=== PATIENT | female | born 2000 | race Caucasian/White ===

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

== ENCOUNTER 2021-04-11 22:54 | Emergency (ER) | payer OTHER, SELFPAY ==
[2021-04-11 22:55] VITALS: BP 141/95; PULSE 91; RESP 18; TEMP 36.7; O2SAT 99; BMI 29.2
--- NOTE | 2021-04-11 23:07 | XR_ITS ---
PROCEDURE INFORMATION: Exam: XR Right Ankle Exam date and time: 04/11/2021 11:07 PM Age: 20 years old Clinical indication: Pain and injury or trauma; Fall; Sprain or strain and swelling (edema); Ankle; Right TECHNIQUE: Imaging protocol: XR Right ankle. Views: 3 or more views. COMPARISON: No relevant prior studies available. FINDINGS: Bones/joints: Normal. Soft tissues: There is potentially mild swelling overlying the ankle. IMPRESSION: No acute osseous abnormality. If there is concern for ligamentous or other soft tissue injury, MRI would be more sensitive.
--- NOTE | 2021-04-11 23:29 | HMH.EDLOEX ---
ED Disposition Clinical Impression: Ankle sprain Qualifiers: Encounter type: initial encounter Involved ligament of ankle: unspecified ligament Laterality: right Qualified Code(s): S93.401A - Sprain of unspecified ligament of right ankle, initial encounter Disposition: Home, Self-Care Condition on Discharge: Good Instructions: DI for Ankle Sprain Additional Instructions: ice and limited wt bearing and advil/tyenol and see ortho or podiatry for follow up Referrals: Mj Meléndez MD [Primary Care Provider] - Padmaja Malloy DPM [Staff Physician] - Inocente Castillo JR, MD [Physician] - - Critical Care Critical Care Time: No Attestation: On 04/11/21, the high probability of a clinically significant, sudden or life threatening deterioration of the following system(s) required my full and direct attention, intervention and personal management. The time I documented below is in addition to time spent performing reported procedures but includes the following listed in this critical care notation. Medical Decision Making - Medical Records Medical records reviewed: Yes: I reviewed the patient's medical records. - Corey Inquiry Pt receiving controlled substance: No Vital Signs: 04/11/21 22:55 04/12/21 00:12 Temperature 98.1 F 98.2 F Temperature Source Oral Oral Pulse Rate 88 Pulse Rate [Right] 91 H Respiratory Rate 18 19 Blood Pressure 138/88 Blood Pressure [Right Arm] 141/95 H Blood Pressure Mean [Right Arm] 110 02 Sat by Pulse Oximetry 99 Oxygen Delivery Method Room Air - Lab Data Lab results reviewed: Yes: I reviewed the patient's lab results. - Radiology Data #1 Image(s): Ankle Image Reviewed: Yes I have reviewed radiologist's interpretation Preliminary Findings: No Fracture Seen Medical Decision Narrative: limited wt bearing and ice and see ortho or podiatry for follow up Lower Extremity Injury HPI - General Chief Complaint: Extremity Injury, Lower Stated Complaint: AO 2000 injured R ankle Time Seen by Provider: 04/11/21 23:29 Mode of Arrival: Wheelchair Source of Information: Patient, Parent(s), Medical Record Limitations: No Limitations Description of Symptoms (Recalled from ER Triage Doc. by RN): pt states she fell off one step of bleachers. pt c/o rt ankle pain - History of Present Illness HPI Narrative: acute injury rt ankle with tenderness and dec wt bearing - misstepped complaint: ankle injury Onset (ago): hour(s) Injury: Right: ankle Type of Injury: eversion Place: school Severity: moderate Context: walking Associated symptoms: snap/pop sensation, swelling, able to partially bear weight Other symptoms: none - Related Data Home Medications Medication Instructions Recorded Confirmed No Known Home Medications 02/19/21 02/19/21 Allergies Allergy/AdvReac Type Severity Reaction Status Date / Time Penicillins Allergy Severe Anaphylaxis Verified 02/19/21 10:51 povidone-iodine AdvReac Mild Itching Verified 02/19/21 10:51 [From Betadine] soap [From Betadine] AdvReac Mild Itching Verified 02/19/21 10:51 [facility] History - Hepatitis A Screen Drug use history?: No High risk sexual behaviors?: No History of sexually transmitted infection?: No Currently employed?: No Childcare worker?: No Do you have indoor plumbing?: Yes Do you have electricity?: Yes Attestation statement:: This patient has been screened for Hepatitis A risk factors. I have reviewed the patient's past medical history: Yes Medical History: Reports:: Anxiety, Depression Denies:: Cancer, Diabetes Mellitus Type 1, Diabetes Mellitus Type 2, Internal Pacemaker, MRSA, Seizures Other Medical History: Denies: Blood Transfusion Reaction Laterality Cases: Left: Other, Bilateral: Tonsillectomy Other Surgeries: Yes: Other (Left Ankle). No: Pacemaker Amputation: No Fractures: No Comment: L ankle July 2018. [place] Teeth Extraction - Social History Smoking Status: Never smoker Alcoh
[2021-04-12 00:12] VITALS: BP 138/88; PULSE 88; RESP 19; TEMP 36.8; O2SAT 98
== END 2021-04-12 00:42 | disposition home or self-care (01) ==
PROVIDERS: Emergency Provider Emergency Medicine; PCP Internal Medicine Adolescent Medicine
DX: S93.401A Sprain of unspecified ligament of right ankle, initial encounter (principal); W17.89XA Other fall from one level to another, initial encounter; Y92.89 Other specified places as the place of occurrence of the external cause
CPT/HCPCS: 73610; 99283

== ENCOUNTER → 2021-04-19 10:34 | Outpatient (CLI) | payer OTHER, SELFPAY ==
--- NOTE | 2021-04-19 10:34 | MR_ITS ---
PROCEDURE INFORMATION: Exam: MR Right Lower Extremity Joint Without and With Contrast; Ankle Exam date and time: 04/19/2021 10:34 AM Age: 20 years old Clinical indication: Pain; Ankle; Right; Additional info: Right ankle injury, instability TECHNIQUE: Imaging protocol: MR of the Right lower extremity without and with contrast. Exam focused on the ankle. Contrast material: ISOVUE; Contrast volume: 15 ml; Contrast route: IV; COMPARISON: CR XR ANKLE RT MIN 3V 04/11/2021 11:31 PM FINDINGS: Bones and cartilage: STIR hyperintense marrow edema or contusion identified involving the medial malleolus. There is a curvilinear focus of T2 hyperintensity within the bone marrow of this region, and a nondisplaced or trabecular type fracture is suggested. 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 Marrow edema is identified involving this ossicle and the adjacent navicular bone. 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 There is enhancement of the above-mentioned bone marrow. No dislocation of the ankle. Joint spaces: No joint effusion. LIGAMENTS: Distal tibiofibular syndesmosis: There is increased signal intensity within the anterior tibiofibular ligament, and partial tear cannot be excluded. Anterior talofibular ligament: There is abnormal signal intensity within the anterior talofibular ligament with adjacent edema. This is consistent with partial tear. Posterior talofibular ligament: No definitive tear. Calcaneofibular ligament: Mild edema adjacent to the calcaneofibular ligament, without full-thickness tear. Ligament sprain is considered. Deltoid ligament complex: Heterogeneous signal intensity of the deltoid ligament, without definitive tear. TENDONS: Flexor tendons of foot: Unremarkable as visualized. Tibialis posterior tendon: Mild tenosynovitis of the posterior tibialis tendon. Peroneal tendons: Abnormal morphology of the peroneus brevis tendon. No well-defined tear. No visualized tear of the peroneus longus tendon. Extensor tendons of foot: Unremarkable as visualized. Tibialis anterior tendon: Unremarkable as visualized. Achilles tendon: Unremarkable as visualized. Tarsal canal (Sinus tarsi): There is a small amount of subtalar fluid which extends into the sinus tarsi. Muscles: No visualized acute abnormality. Soft tissues: Minimal soft tissue swelling of the ankle. Plantar fascia: Intact, as visualized. IMPRESSION: 1. Marrow edema or contusion identified involving the medial malleolus. There is a curvilinear focus of T2 hyperintensity within the bone marrow of this region, and a nondisplaced or trabecular type fracture is suggested. 2. 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 Marrow edema is identified involving this ossicle and the adjacent navicular bone. 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 3. Partial tear of the anterior talofibular ligament. 4. There is increased signal intensity within the anterior tibiofibular ligament, and partial tear cannot be excluded. 5. Suggested sprain of the calcaneofibular ligament. 6. Mild tenosynovitis of the posterior tibialis tendon. 7. Additional findings described above.
== END ==
PROVIDERS: PCP Internal Medicine Adolescent Medicine; Visit Provider Nurse Practitioner
DX: M25.371 Other instability, right ankle (principal); M25.571 Pain in right ankle and joints of right foot; S93.421A Sprain of deltoid ligament of right ankle, initial encounter
CPT/HCPCS: 73723; A9576

== ENCOUNTER → 2021-06-03 12:56 | Outpatient (CLI) | payer OTHER, SELFPAY ==
--- NOTE | 2021-06-03 13:09 | XR_ITS ---
PROCEDURE: XR ANKLE WT BEARING RT MIN 3V CLINICAL INDICATION: FRACTURE OF MEDIAL MALLEOLUS, Ankle sprain COMPARISON: CR XR ANKLE RT MIN 3V from 04/11/2021 MR MR ANKLE RT WO/W CON from 04/19/2021 FINDINGS: The previous MRI scan right ankle showed marrow edema suggesting a nondisplaced fracture of the medial malleolus. I do not identify a semi acute fracture of the medial malleolus. There is no periosteal reaction. The medial and lateral malleolus appear intact and the ankle mortise is normal. There is no significant soft tissue swelling. IMPRESSION: No acute findings. Dictated by: Dr. Buck Winter MD 06/06/2021 13:36 Dr. Buck Winter MD in [place] 06/06/2021 13:36
== END ==
PROVIDERS: PCP Internal Medicine Adolescent Medicine; Visit Provider Podiatrist
DX: S82.51XA Displaced fracture of medial malleolus of right tibia, initial encounter for closed fracture (principal); S93.401A Sprain of unspecified ligament of right ankle, initial encounter
CPT/HCPCS: 73610

== ENCOUNTER 2021-07-02 18:45 | Emergency (ER) | payer OTHER, SELFPAY ==
[2021-07-02 19:40] VITALS: BP 0/0; PULSE 0; RESP 0; TEMP -17.7; TEMP 0
== END 2021-07-02 19:42 | disposition home or self-care (01) ==
LOC: UTC 18:48 → ER 19:29 → UTC 19:34
PROVIDERS: Emergency Provider Nurse Practitioner Family; PCP Internal Medicine Adolescent Medicine
DX: Z53.21 Procedure and treatment not carried out due to patient leaving prior to being seen by health care provider (principal)

== ENCOUNTER → 2021-07-15 09:30 | Outpatient (CLI) | payer OTHER, SELFPAY ==
--- NOTE | 2021-07-15 09:41 | XR_ITS ---
PROCEDURE: XR TIBIA FIBULA RT 2V CLINICAL INDICATION: ANKLE PAIN COMPARISON: No exams were available for comparison FINDINGS: There is a wrap present around the calf and ankle. No definite fracture or dislocation. The joint spaces are well-preserved. No significant degenerative/arthritic changes. No erosive changes evident. Other findings:None. IMPRESSION: No acute findings. Dictated by: Clint Barajas MD 07/15/2021 14:41 Clint Barajas MD in [facility] 07/15/2021 14:41
--- NOTE | 2021-07-15 09:41 | XR_ITS ---
PROCEDURE: XR FOOT WT BEARING RT 3V CLINICAL INDICATION: ANKLE PAIN COMPARISON: No exams were available for comparison FINDINGS: No fracture or dislocation. No lytic or blastic change. There is normal mineralization. The joint spaces are well-preserved. No significant degenerative/arthritic changes. No erosive changes evident. Other findings:There is a wrap in place along the ankle, hindfoot and midfoot somewhat obscuring fine bony detail. IMPRESSION: No acute findings. Dictated by: Clint Barajas MD 07/15/2021 14:41 Clint Barajas MD in [place] 07/15/2021 14:41
--- NOTE | 2021-07-15 09:41 | XR_ITS ---
PROCEDURE: XR ANKLE WT BEARING RT MIN 3V CLINICAL INDICATION: ANKLE PAIN COMPARISON: CR XR ANKLE LT MIN 3V from 07/31/2020 CR XR ANKLE LT 2V from 08/04/2020 CR XR ANKLE RT MIN 3V from 04/11/2021 CR XR ANKLE WT BEARING RT MIN 3V from 06/03/2021 FINDINGS: There is an overlying wrap which somewhat obscures fine bony detail. No acute fracture or dislocation is apparent. The ankle mortise is preserved and the talar dome has an unremarkable appearance. IMPRESSION: No acute findings. Dictated by: Clint Barajas MD 07/15/2021 14:40 Clint Barajas MD in [place] 07/15/2021 14:40
== END ==
PROVIDERS: PCP Internal Medicine Adolescent Medicine; Visit Provider Podiatrist
DX: M25.571 Pain in right ankle and joints of right foot (principal); M25.371 Other instability, right ankle; G89.29 Other chronic pain
CPT/HCPCS: 73590; 73610; 73630

== ENCOUNTER → 2021-07-24 13:28 | Outpatient (CLI) | payer OTHER, SELFPAY ==
--- NOTE | 2021-07-24 13:32 | MR_ITS ---
PROCEDURE INFORMATION: Exam: MR Right Lower Extremity Joint Without Contrast; Ankle Exam date and time: 07/24/2021 1:32 PM Age: 20 years old Clinical indication: Pain; Ankle; Right; Prior surgery; Surgery date: 6+ months; Additional info: Right ankle pain, prior ankle surgery x1yr ago. Ankle pain. Symptoms x6-7months. PT fell [id number] ago with foot FX. TECHNIQUE: Imaging protocol: MR of the Right lower extremity without contrast. Exam focused on the ankle. COMPARISON: MR ANKLE RT WO/W CON 04/19/2021 10:47 AM FINDINGS: Bones and cartilage: A type 2 accessory navicular bone is visualized. Marrow edema is identified involving this ossicle and the adjacent navicular bone. This is consistent with accessory navicular syndrome. The marrow edema has progressed compared to the previous exam. There is interval resolution of marrow edema involving the medial malleolus. Artifact limits T2 and PD fat saturated images. Joint spaces: Small tibiotalar joint effusion. Minimal subtalar joint effusion. LIGAMENTS: Distal tibiofibular syndesmosis: Unremarkable. No tear. Anterior talofibular ligament: Heterogeneous increased signal intensity involving the anterior talofibular ligament. Partial tear is considered. Signal change in this region has improved compared to the prior study. Posterior talofibular ligament: Unremarkable. No tear. Calcaneofibular ligament: Evaluation of the calcaneofibular ligament is limited, without a full-thickness tear. Deltoid ligament complex: No tear. TENDONS: Flexor tendons of foot: Unremarkable as visualized. Tibialis posterior tendon: Minimal tenosynovitis of the posterior tibialis tendon, which has improved. Peroneal tendons: Abnormal morphology of the peroneus brevis tendon. No well-defined tear. No visualized tear of the peroneus longus tendon. Extensor tendons of foot: Unremarkable as visualized. Tibialis anterior tendon: Unremarkable as visualized. Achilles tendon: Unremarkable as visualized. Tarsal canal (Sinus tarsi): Minimal fluid within the sinus tarsi. Muscles: No visualized acute abnormality. Soft tissues: Unremarkable. Plantar fascia: Intact, as visualized. IMPRESSION: 1. 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 Marrow edema is identified involving this ossicle and the adjacent navicular bone. This is consistent with accessory navicular syndrome. The marrow edema has progressed compared to the previous exam. 2. Heterogeneous increased signal intensity involving the anterior talofibular ligament. Partial tear is considered. Signal change in this region has improved compared to the prior study. 3. Minimal tenosynovitis of the posterior tibialis tendon, which has improved. 4. Small tibiotalar joint effusion. Minimal subtalar joint effusion. 5. Additional findings described above.
--- NOTE | 2021-07-24 13:32 | MR_ITS ---
PROCEDURE INFORMATION: Exam: MR Right Lower Extremity Other Than Joint Without and With Contrast; Foot Exam date and time: 07/24/2021 1:32 PM Age: 20 years old Clinical indication: Pain; Foot; Right; Prior surgery; Surgery date: 6+ months; Additional info: Right foot pain. Prior ankle surgery x1yr ago. Ankle pain. Symptoms x6-7months. PT fell [id number] ago with foot FX. 16ml prohance given. Lot: [id number] exp: Feb 2023 TECHNIQUE: Imaging protocol: MR of the Right lower extremity without and with intravenous contrast. Exam focused on the foot. Contrast material: PROHANCE; Contrast volume: 16 ml; Contrast route: IV; COMPARISON: 1. CR XR FOOT WT BEARING RT 3V 07/15/2021 9:43 AM 2. MR ANKLE RT WO/W CON 04/19/2021 10:47:20 AM FINDINGS: Bones and cartilage: A tiny nonspecific sclerotic lesions identified within the 2nd metatarsal head. 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 Marrow edema is identified involving this ossicle and the adjacent navicular bone. This is consistent with accessory navicular syndrome. The marrow edema has progressed compared to the previous MRI ankle. No acute marrow edema involving the remaining bones of the foot. There is enhancement of the marrow edema involving the navicular bone and adjacent ossicle. Evaluation of the digits on postcontrast images is limited. No dislocation of the foot. Joint spaces: Small tibiotalar and subtalar joint effusions. Minimal fluid within the talonavicular joint. Small 1st MTP and IP joint effusions. LIGAMENTS: Lisfranc ligament: No evidence of tear. TENDONS: Flexor tendons of foot: Unremarkable. No evidence of tear. Tibialis posterior tendon: Minimal tenosynovitis of the posterior tibialis tendon. Peroneal tendons: Abnormal morphology of the peroneus brevis tendon. No well-defined tear. No visualized tear of the peroneus longus tendon. Extensor tendons of foot: Unremarkable. No evidence of tear. Tibialis anterior tendon: Unremarkable as visualized. Achilles tendon: Mild heterogeneous signal intensity of the distal Achilles tendon on sagittal imaging suggestive of tendinosis, although this is not confirmed on axial images. Tarsal canal (Sinus tarsi): There is mild extension of subtalar fluid into the sinus tarsi. Soft tissues: Minimal fluid within the retrocalcaneal bursa. Plantar fascia: Intact, as visualized. IMPRESSION: 1. 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 Marrow edema is identified involving this ossicle and the adjacent navicular bone. This is consistent with accessory navicular syndrome. The marrow edema has progressed compared to the previous MRI ankle. 2. Small effusions. 3. Additional findings described above.
== END ==
PROVIDERS: PCP Internal Medicine Adolescent Medicine; Visit Provider Podiatrist
DX: M25.571 Pain in right ankle and joints of right foot (principal); M25.371 Other instability, right ankle; S93.621A Sprain of tarsometatarsal ligament of right foot, initial encounter; S99.911A Unspecified injury of right ankle, initial encounter; Z87.81 Personal history of (healed) traumatic fracture
CPT/HCPCS: 73720; 73721; A9576

== ENCOUNTER → 2021-07-25 14:53 | Outpatient (CLI) | payer OTHER, SELFPAY ==
--- NOTE | 2021-07-25 14:53 | MR_ITS ---
PROCEDURE INFORMATION: Exam: MR Left Lower Extremity Without Contrast, Tibia Fibula Exam date and time: 07/25/2021 2:53 PM Age: 20 years old Clinical indication: Pain; Lower leg; Left; Prior surgery; Additional info: Lower leg/calf, achilles pain. PT states knot on posterior aspect of leg. Put marker in center of knot. Pain around spot x1yr. Prior x-ray 07-15-21 TECHNIQUE: Imaging protocol: MR of the Left lower extremity without contrast. Exam focused on the tibia and fibula. COMPARISON: No relevant prior studies available. FINDINGS: Bones/joints: No visualized acute marrow edema or acute fracture of the left tibia or fibula. No dislocation of the tibia. Small tibiotalar joint effusion, with slight widening of the lateral ankle mortise. Evaluation of the knee and ankle is limited on this study. Bands of T1 hypointensity are identified within the lateral malleolus, likely representing postoperative change. In the absence of postoperative change, this likely represents cystic change. Tendons: There is thickening of the Achilles tendon at the musculotendinous junction, which is hypointense on T1 and T2 images. This is suggestive of tendinopathy, postoperative change, or prior injury. No tear is visualized of the Achilles tendon on current images. An adjacent marker capsule is identified. Tenosynovitis of the peroneal tendons, with thickening of the peroneus longus tendon.. Muscles: No visualized acute abnormality. Soft tissues: No significant soft tissue swelling. IMPRESSION: 1. There is thickening of the Achilles tendon at the musculotendinous junction. This is suggestive of tendinopathy, postoperative change, or prior injury. No tear is visualized of the Achilles tendon on current images. An adjacent marker capsule is identified. 2. Tenosynovitis of the peroneal tendons, with thickening of the peroneus longus tendon.. 3. No visualized acute marrow edema or acute fracture of the left tibia or fibula. 4. Small tibiotalar joint effusion, with slight widening of the lateral ankle mortise. 5. Additional findings described above.
== END ==
PROVIDERS: PCP Internal Medicine Adolescent Medicine; Visit Provider Podiatrist
DX: M79.662 Pain in left lower leg (principal); L90.5 Scar conditions and fibrosis of skin
CPT/HCPCS: 73718

== ENCOUNTER 2021-08-04 18:01 | Emergency (ER) | payer OTHER, SELFPAY ==
[2021-08-04 18:55] VITALS: BP 133/90; PULSE 93; RESP 19; TEMP 37; O2SAT 98; BMI 30.3
[2021-08-04 19:26] LABS: UTC Strep Screen (Rapid) Negative (Negative)
--- NOTE | 2021-08-04 20:00 | HMH.EDUTC ---
[facility] Disposition Clinical Impression: Sinusitis Qualifiers: Sinusitis location: unspecified location Chronicity: unspecified Qualified Code(s): J32.9 - Chronic sinusitis, unspecified Disposition: Home, Self-Care Condition on Discharge: Good Instructions: Sinusitis, DI for Sinusitis, DI for Ear Pain-Adult, DI for COVID-19 (Suspected or Confirmed ) Additional Instructions: *Monitor Temp, Over the counter Motrin or Tylenol as directed/as needed Tylenol every 4 hours and Motrin every 6 hours (as long as your family doctor has told you that you can take it) for fever or pain. and straight to ER if unable to lower temp less than 101.0 after medication given *Warm salt water gargles may help to soothe the throat *Throat Lozenges *Warm fluids like tea with honey may help to soothe the throat *Sleep elevated *Humidifier/Vaporizer *Flonase 2 sprays in each nostril daily but be aware that it may take 2-3 days before you notice improvement Your throat swab was sent for culture. Those results are typically sent to your primary care. Be sure to follow up in 2-3 days with your family doctor/primary care physician if no improvement so they can review those result and treat if necessary. If you don?t have a primary care doctor, I recommend you get one but in the mean time, you will have to return to a walk in clinic Follow up IMMEDIATELY for new or worsening symptoms or no Noticeable improvement over the next 48-72 hours. 911 for difficulty breathing or swallowing You were tested for today for COVID19 your test result should be back in the next 24-48 hours, you may check for your results on the [facility] My Health Portal if you have trouble logging on or seeing your results you may call You was given a handout with instructions for Self Quarantine and Self isolation for while you wait on test results and what to do if they are positive If you are positive the Health Dept will be contacting you also Make sure to take your Vitamins Vit. C Vit D and Zinc if you can take them Prescriptions: Fluticasone Propionate [Flonase 50mcg nasal spray 16gm] 1 spr NS DAILY #1 each Transmission Status: Pending to [facility] predniSONE [Prednisone 20mg Tab] 20 mg PO BID 5 Days #10 tab Transmission Status: Pending to [facility] Azithromycin [Z-Junior 250mg Tab] 250 mg PO DIRECTED #6 tab Transmission Status: Pending to [facility] Referrals: Mj Meléndez MD [Primary Care Provider] - As needed Forms: Work/School Release Time of Disposition: 20:10 Medical Decision Making - Corey Inquiry Pt receiving controlled substance: No Corey was queried for this patient: No Vital Signs: 08/04/21 18:55 Temperature 98.6 F Temperature Source Oral Pulse Rate [Right Brachial] 93 H Respiratory Rate 19 Blood Pressure [Right Arm] 133/90 Blood Pressure Mean [Right Arm] 104 Blood Pressure Source [Right Arm] Automatic Cuff Blood Pressure Position [Right Arm] Sitting 02 Sat by Pulse Oximetry 98 Oxygen Delivery Method Room Air - Lab Data Lab results reviewed: Yes: I reviewed the patient's lab results. Lab Results 08/04/21 19:15: Strep Scn Rapid Clinic Negative Orders (Tests/Meds): ORDERS Category Date Time Status Strep Screen Confirmation Stat Micro 08/04/21 19:15 Received Medical Decision Narrative: Reports LMP last week denies chance of [facility] HPI - General Stated complaint: sore throat Time Seen by Provider: 08/04/21 20:00 Mode of Arrival: Ambulatory Source of Information: Patient Limitations: No Limitations Description of Symptoms (Recalled from Triage Doc. by RN): PATIENT C/O SORE THROAT X 3 DAYS HEENT Symptoms (Recalled from RN notes): Yes Resp Symptoms (Recalled from RN notes): No Skin Symptoms (Recalled from RN notes): No MS Symptoms (Recalled from RN notes): No Functional Status (Recalled from RN notes): WNL - History of Present Illness Provider Complaint: Patient states that she has been
[2021-08-04 20:11] VITALS: BP 133/90; PULSE 93; RESP 19; TEMP 37; O2SAT 98
== END 2021-08-04 20:15 | disposition home or self-care (01) ==
PROVIDERS: Emergency Provider Nurse Practitioner; PCP Internal Medicine Adolescent Medicine
DX: J32.9 Chronic sinusitis, unspecified (principal); F41.8 Other specified anxiety disorders; Z20.822 Contact with and (suspected) exposure to COVID-19
CPT/HCPCS: 87880; 99203; C9803; G0463; U0003; U0005

== ENCOUNTER → 2021-08-21 11:08 | Outpatient (CLI) | payer OTHER, SELFPAY ==
--- NOTE | 2021-08-21 11:15 | CT_ITS ---
FINAL REPORT CLINICAL HISTORY: RLQ ABDOMINAL PAIN COMPARISON: 12/15/2020 FINDINGS: CT OF THE ABDOMEN AND PELVIS WITH CONTRAST Axial CT images of the abdomen and pelvis were obtained after the administration of oral and iv contrast. Coronal reformatted images were also obtained and reviewed.This study was performed with techniques to keep radiation doses as low as reasonably achievable (ALARA). Individualized dose reduction techniques using automated exposure control or adjustment of mA and/or kV according to the patient's size were employed. Abdomen: There is mild bibasilar atelectasis. The heart is normal in size. The liver has an unremarkable appearance, without evidence of mass or biliary ductal dilatation. The spleen is unremarkable. No adrenal mass is present. The pancreas has an unremarkable appearance. The kidneys are normal, without evidence of stone or hydronephrosis. There is a less than 1 cm right renal cyst. The aorta is normal in caliber. There is no free fluid or adenopathy. No mass or abnormal fluid collection is seen. Pelvis: The appendix is partially visualized and appears normal. The urinary bladder is unremarkable. No inflammatory process is seen. There is a small amount of pelvic free fluid which is probably physiologic. There are small right ovarian cysts. IMPRESSION: No evidence of acute intra-abdominal process. Small right ovarian cysts. Reviewed, Interpreted and Dictated by Babar Samaniego III, MD Transcribed by Jade Rosario Authenticated by Babar Samaniego III, MD on 08/21/2021 12:28:25 PM [facility]
== END ==
LOC: RAD 11:09
PROVIDERS: PCP Internal Medicine Adolescent Medicine; Visit Provider Internal Medicine Adolescent Medicine
DX: R10.31 Right lower quadrant pain (principal)
CPT/HCPCS: 74177; Q9967

== ENCOUNTER 2021-11-26 18:38 | Emergency (ER) | payer OTHER, SELFPAY ==
--- NOTE | 2021-11-26 19:31 | XR_ITS ---
PROCEDURE INFORMATION: Exam: XR Left Hand Exam date and time: 11/26/2021 7:36 PM Age: 21 years old Clinical indication: Pain; Hand; Left; Additional info: Injury to thumb TECHNIQUE: Imaging protocol: XR Left hand. Views: 3 or more views. COMPARISON: No relevant prior studies available. FINDINGS: Bones/joints: No acute fracture or dislocation. Soft tissues: Normal. IMPRESSION: No acute fracture or dislocation.
[2021-11-26 19:32] VITALS: BP 135/89; PULSE 76; RESP 19; TEMP 36.8; O2SAT 98; BMI 30.1
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
[2021-11-26 20:15] VITALS: BP 135/89; PULSE 76; RESP 19; TEMP 36.8; O2SAT 98
== END 2021-11-26 20:16 | disposition home or self-care (01) ==
PROVIDERS: Emergency Provider Nurse Practitioner; PCP Internal Medicine Adolescent Medicine
DX: S63.602A Unspecified sprain of left thumb, initial encounter (principal); W50.0XXA Accidental hit or strike by another person, initial encounter; Y92.019 Unspecified place in single-family (private) house as the place of occurrence of the external cause; F41.8 Other specified anxiety disorders; Z88.0 Allergy status to penicillin
CPT/HCPCS: 73130; 99212; G0463

== ENCOUNTER 2022-10-06 15:03 | Emergency (ER) | payer OTHER, SELFPAY ==
[2022-10-06 15:15] VITALS: BP 142/98; PULSE 88; RESP 21; TEMP 36.9; O2SAT 99; BMI 29.5
--- NOTE | 2022-10-06 15:30 | EXP.UTC ---
Discharge Plan Disposition Patient Disposition: Home, Self-Care Condition: Good Prescriptions Prescriptions: New fluticasone propionate [Flonase Allergy Relief] 50 mcg/actuation spray,suspension 1 spray intranasal DAILY Qty: 16 0RF Rx Instructions: administer into each nostril daily azithromycin [Zithromax Z-Junior] 250 mg tablet See Rx Instructions .ROUTE .COMPLEX 5 Days Qty: 6 0RF Rx Instructions: For 250 mg dose pack: take 500 mg today (day 1), then 250 mg for 4 days (days 2-5) methylprednisolone [Medrol (Junior)] 4 mg tablets,dose pack See Rx Instructions .Route .COMPLEX 6 Days Qty: 21 0RF Rx Instructions: taper pack; Referrals Follow up/Referrals: Julio Schmitz MD [Primary Care Provider] - See instructions Activity Restrictions/Add. Instructions Additional Instructions/Restrictions: *Monitor Temp, Over the counter Motrin or Tylenol as directed/as needed Tylenol every 4 hours and Motrin every 6 hours (as long as your family doctor has told you that you can take it) for fever or pain. and straight to ER if unable to lower temp less than 101.0 after medication given *Warm salt water gargles may help to soothe the throat *Throat Lozenges? *Warm fluids like tea with honey may help to soothe the throat? *Sleep elevated *Humidifier/Vaporizer *Flonase 2 sprays in each nostril daily but be aware that it may take 2-3 days before you notice improvement Your throat swab was sent for culture. Those results are typically sent to your primary care. Be sure to follow up in 2-3 days with your family doctor/primary care physician if no improvement so they can review those result and treat if necessary. If you don?t have a primary care doctor, I recommend you get one but in the mean time, you will have to return to a walk in clinic Follow up IMMEDIATELY for new or worsening symptoms or no Noticeable improvement over the next 48-72 hours. 911 for difficulty breathing or swallowing Clinical Impressions Clinical Impression: Sinusitis, Pharyngitis Stand Alone Forms Stand Alone Forms: Work/School Release Instructions Patient Instructions: Sore Throat, Sinusitis, DI for Sinusitis Discharge ED Provider: Melissa Barros [facility] HPI General Stated complaint: sore throat, ALFARO, congestion Time Seen by Provider: 10/06/22 15:30 History of Present Illness Provider Complaint: Patient states that she has been having sore throat, sinus congestion and pressure along with drainage in the back of her throat States that she feels like when she coughs her throat hurts worse States that today her throat was hurting worse so she came in to get checked Related Data Previous Rx's Medication Instructions Recorded azithromycin 250 mg tablet See Rx Instructions PO .COMPLEX 5 10/06/22 (Zithromax Z-Junior) days #6 tabs fluticasone propionate 50 1 spray intranasal DAILY #16 grams 10/06/22 mcg/actuation nasal spray,suspension (Flonase Allergy Relief) methylprednisolone 4 mg tablets in See Rx Instructions .Route 10/06/22 a dose pack (Medrol (Junior)) .COMPLEX 6 days #21 tabs Allergies Allergy/AdvReac Type Severity Reaction Status Date / Time Penicillins Allergy Severe Anaphylaxis Verified 08/04/21 13:06 povidone-iodine AdvReac Mild Itching Verified 08/04/21 13:06 [From Betadine] soap [From Betadine] AdvReac Mild Itching Verified 08/04/21 13:06 [facility] Disclaimer: The information contained in this section may have been updated after the patient was seen, as this information can be updated by other users. Social History Smoking Status: Never smoker second hand exposure: No alcohol intake: never substance use type: denies use current occupational status: employed Travel in the last 8 weeks: None current occupational exposures/hazards: No caffeine: Yes ROS Obtained: Yes All systems reviewed & no additional complaints except as documented and Yes Systems rev
[2022-10-06 15:35] LABS: UTC Strep Screen (Rapid) Negative (Negative)
[2022-10-06 15:57] VITALS: BP 142/98; PULSE 88; RESP 21; TEMP 36.9; O2SAT 99
== END 2022-10-06 16:05 | disposition home or self-care (01) ==
PROVIDERS: Emergency Provider Nurse Practitioner; PCP Internal Medicine Adolescent Medicine
DX: J32.9 Chronic sinusitis, unspecified (principal); J02.9 Acute pharyngitis, unspecified
CPT/HCPCS: 87880; 99212; 99213; G0463

== ENCOUNTER 2022-10-17 10:29 | Emergency (ER) | payer OTHER, SELFPAY ==
[2022-10-17 10:35] VITALS: BP 150/100; PULSE 92; RESP 17; TEMP 37.2; O2SAT 100; BMI 29.5
[2022-10-17 10:50] VITALS: BP 138/92; PULSE 92; RESP 17; TEMP 37.2; O2SAT 100
[2022-10-17 10:53] LABS: UTC Strep Screen (Rapid) Negative (Negative)
--- NOTE | 2022-10-17 11:36 | EXP.UTC ---
Discharge Plan Disposition Patient Disposition: Home, Self-Care Condition: Good Prescriptions Prescriptions: New doxycycline hyclate 100 mg capsule 100 mg PO Q12H 10 Days Qty: 20 0RF Referrals Follow up/Referrals: Julio Schmitz MD [Primary Care Provider] - See instructions Activity Restrictions/Add. Instructions Additional Instructions/Restrictions: Follow up with PCP concerning elevated blood pressure readings. Clinical Impressions Clinical Impression: Acute suppur right otitis media w/spontan rupture of tympanic membrane, Elevated blood pressure reading without diagnosis of hypertension Instructions Patient Instructions: DI for Middle Ear Infection-Adult Discharge ED Provider: Madeline Ma [facility] General Stated complaint: Sore throat,right ear ache Mode of Arrival: Ambulatory Source of Information: Patient Limitations: No Limitations Time Seen by Provider: 10/17/22 11:35 Description of Symptoms (Recalled from Triage Doc. by RN): PATIENT C/O SORE THROAT AND RIGHT EAR PAIN X 2 DAYS HEENT Symptoms (Recalled from RN notes): Yes Resp Symptoms (Recalled from RN notes): No Skin Symptoms (Recalled from RN notes): No MS Symptoms (Recalled from RN notes): No Functional Status (Recalled from RN notes): WNL History of Present Illness Provider Complaint: Pt states that both ears hurt and the pain runs down to her throat. She states that she took antibiotics a couple of weeks ago for strep. She states that she has been using Flonase daily. Related Data Previous Rx's Medication Instructions Recorded doxycycline hyclate 100 mg capsule 100 mg PO Q12H 10 days #20 caps 10/17/22 Allergies Allergy/AdvReac Type Severity Reaction Status Date / Time Penicillins Allergy Severe Anaphylaxis Verified 08/04/21 13:06 povidone-iodine AdvReac Mild Itching Verified 08/04/21 13:06 [From Betadine] soap [From Betadine] AdvReac Mild Itching Verified 08/04/21 13:06 Worker's Comp Is this a Worker's Comp case?: No [facility] Disclaimer: The information contained in this section may have been updated after the patient was seen, as this information can be updated by other users. Social History Smoking Status: Never smoker second hand exposure: No alcohol intake: never substance use type: denies use current occupational status: employed Travel in the last 8 weeks: None current occupational exposures/hazards: No caffeine: Yes ROS Obtained: Yes All systems reviewed & no additional complaints except as documented Constitutional Constitutional: Reports system reviewed and no additional complaints, except as documented Eyes Eyes: Reports system reviewed and no additional complaints, except as documented ENT Ears, Nose, Mouth, and Throat: Reports system reviewed and no additional complaints, except as documented, Reports otalgia, Reports nasal discharge and Reports sore throat Cardiovascular Cardiovascular: Reports system reviewed and no additional complaints, except as documented Respiratory Respiratory: Reports system reviewed and no additional complaints, except as documented Gastrointestinal Gastrointestingal: Reports system reviewed and no additional complaints, except as documented Genitourinary Female Genitourinary: Reports system reviewed and no additional complaints, except as documented Musculoskeletal Musculoskeletal: Reports system reviewed and no additional complaints, except as documented Integumentary/Breasts Skin/Breast: Reports system reviewed and no additional complaints, except as documented Neurologic Neurologic: Reports system reviewed and no additional complaints, except as documented Endocrine Endocrine: Reports system reviewed and no additional complaints, except as documented Hematologic/Lymphatic Henatologic/Lymphatic: Reports system reviewed and no additional complaints, except as documented Allergic/Immunologic Allergic/Immunologic: Reports system reviewed and no additional
== END 2022-10-17 11:55 | disposition home or self-care (01) ==
PROVIDERS: Emergency Provider Nurse Practitioner Family; PCP Internal Medicine Adolescent Medicine
DX: H66.011 Acute suppurative otitis media with spontaneous rupture of ear drum, right ear (principal); R07.0 Pain in throat; R03.0 Elevated blood-pressure reading, without diagnosis of hypertension
CPT/HCPCS: 87880; 99212; 99214; G0463

== ENCOUNTER → 2022-12-08 10:43 | Outpatient (CLI) | payer OTHER, SELFPAY ==
[2022-12-08 12:01] LABS: HCG,Quantitative 525 mIU/ml (0-5.42)
== END ==
PROVIDERS: PCP Internal Medicine Adolescent Medicine; Visit Provider Obstetrics & Gynecology
DX: Z34.90 Encounter for supervision of normal pregnancy, unspecified, unspecified trimester (principal)
CPT/HCPCS: 36415; 84144; 84702

== ENCOUNTER 2022-12-08 11:03 | Emergency (ER) | payer OTHER, SELFPAY ==
[2022-12-08 11:15] VITALS: BP 147/99; PULSE 100; RESP 17; TEMP 37.3; O2SAT 100; BMI 30.5
--- NOTE | 2022-12-08 11:39 | EXP.UTC ---
Discharge Plan Disposition Patient Disposition: Home, Self-Care Condition: Good Prescriptions Prescriptions: No Action doxycycline hyclate 100 mg capsule 100 mg PO Q12H 10 Days Qty: 20 0RF Referrals Follow up/Referrals: Julio Schmitz MD [Primary Care Provider] - See instructions Padmaja Malloy DPM [Staff Physician] - See instructions Activity Restrictions/Add. Instructions Additional Instructions/Restrictions: Rest the extremity, Elevate the extremity as tolerated while you are resting. Take tylenol for pain. Follow up with Dr. Malloy (podiatry). I put in a referral but you need to call her office and schedule an appointment. Follow up with your regular doctor. GO TO THE ER FOR ANY WORSENING SYMPTOMS Clinical Impressions Clinical Impression: Acute left ankle pain Instructions Patient Instructions: DI for Ankle Pain Discharge ED Provider: Mj Dotson [facility] General Stated complaint: AO@Home Aug 2021, LT ankle pain Time Seen by Provider: 12/08/22 11:39 History of Present Illness Provider Complaint: She states that over the past several months she has had left ankle pain. She originally twisted that ankle. Since then she has had recurrent pain and swelling of the ankle. She denies any recent injury. Related Data Previous Rx's Medication Instructions Recorded doxycycline hyclate 100 mg capsule 100 mg PO Q12H 10 days #20 caps 10/17/22 Allergies Allergy/AdvReac Type Severity Reaction Status Date / Time Penicillins Allergy Severe Anaphylaxis Verified 08/04/21 13:06 povidone-iodine AdvReac Mild Itching Verified 08/04/21 13:06 [From Betadine] soap [From Betadine] AdvReac Mild Itching Verified 08/04/21 13:06 [facility] Disclaimer: The information contained in this section may have been updated after the patient was seen, as this information can be updated by other users. Social History Smoking Status: Never smoker second hand exposure: No alcohol intake: never substance use type: denies use current occupational status: employed Travel in the last 8 weeks: None current occupational exposures/hazards: No caffeine: Yes ROS Obtained: Yes All systems reviewed & no additional complaints except as documented Constitutional Constitutional: Denies chills and Denies fever(s) Eyes Eyes: Denies eye discharge ENT Ears, Nose, Mouth, and Throat: Denies dizziness, Denies otalgia and Denies sore throat Cardiovascular Cardiovascular: Denies chest pain Respiratory Respiratory: Denies shortness of breath, Denies chest congestion, Denies cough, Denies stridor and Denies wheezing Gastrointestinal Gastrointestingal: Denies nausea or vomiting Musculoskeletal Musculoskeletal: Reports as per HPI Integumentary/Breasts Skin/Breast: Denies rash Neurologic Neurologic: Denies dizziness and Denies paresthesias Allergic/Immunologic Allergic/Immunologic: Denies wheezing Physical Exam General General appearance: alert and in no apparent distress Head Head exam: atraumatic, normocephalic and normal inspection Eye Eye exam: Present normal appearance, PERRL and EOMI ENT ENT exam: Present normal exam, normal oropharynx, mucous membranes moist, TM's normal bilaterally and normal external ear exam Neck Neck exam: Present normal inspection, full ROM and trachea midline; Absent meningismus or lymphadenopathy Chest Chest inspection: Present normal inspection and symmetric chest wall rise; Absent tenderness Respiratory Respiratory exam: Present normal lung sounds bilaterally; Absent respiratory distress Cardiovascular Cardiovascular exam: Present regular rate and normal rhythm; Absent JVD Abdominal Exam Abdominal exam: Present soft and normal bowel sounds; Absent distention, tenderness or guarding Extremities Exam Extremities exam: Present normal capillary refill; Absent calf tenderness Expanded Lower Extremity Exam Left: Knee exam
[2022-12-08 11:44] VITALS: BMI 30.5
--- NOTE | 2022-12-08 11:45 | XR_ITS ---
FINAL REPORT CLINICAL HISTORY: INJURY rolled left ankle hx of 2 surgeries to that ankle pt is , double shielded FINDINGS: LEFT ANKLE Three views demonstrate no acute fracture or dislocation. The mortise is intact. There is soft tissue swelling over lateral malleolus. IMPRESSION: No acute process. Reviewed, Interpreted and Dictated by Van Huang MD Transcribed by Jade Rosario Authenticated and [facility]
[2022-12-08 12:32] VITALS: BP 147/99; PULSE 100; RESP 17; TEMP 37.3; O2SAT 100
== END 2022-12-08 12:34 | disposition home or self-care (01) ==
PROVIDERS: Emergency Provider Nurse Practitioner Family; PCP Internal Medicine Adolescent Medicine
DX: M25.572 Pain in left ankle and joints of left foot (principal)
CPT/HCPCS: 73610; 99212; 99214; G0463

== ENCOUNTER → 2022-12-18 09:59 | Outpatient (CLI) | payer OTHER, SELFPAY ==
--- NOTE | 2022-12-18 | CA_ITS ---
FINAL REPORT CLINICAL HISTORY: hX MULTIPLE SUGERIES, EDEMA OF LT ANKLE COMPARISON: None FINDINGS: Multiple transverse and longitudinal scans were performed of the femoral popliteal deep venous system, with augmentation and compression maneuvers. Normal phasic flow was noted in the visualized deep venous system. No intraluminal increased echogenicity is noted to suggest thrombus. There is normal compression and augmentation of the venous structures. No abnormal venous collaterals are seen. IMPRESSION: No evidence of deep venous thrombosis of the bilateral lower extremities. Reviewed, Interpreted and Dictated by Gerry Madsen MD Transcribed by Rox Becker Authenticated and [facility]
== END ==
LOC: RT 09:59
PROVIDERS: PCP Internal Medicine Adolescent Medicine; Visit Provider Podiatrist
DX: R23.8 Other skin changes (principal); I87.2 Venous insufficiency (chronic) (peripheral)
CPT/HCPCS: 93970

== ENCOUNTER → 2022-12-22 07:41 | Outpatient (CLI) | payer OTHER, SELFPAY ==
--- NOTE | 2022-12-22 07:46 | MR_ITS ---
FINAL REPORT CLINICAL HISTORY: ankle pain. HX 2 ANKLE SURGERIES LAST ONE 2019. TWISTED ANKLE AND HAS LATERAL SIDED ANKLE PAIN. FINDINGS: Multiplanar MR imaging of the left ankle was performed without contrast. There is postoperative change of the lateral malleolus. There is bone marrow edema in this region. There is no acute fracture. No osteochondral lesion is identified. The anterior talofibular and calcaneofibular ligaments are not well seen of uncertain significance. There is peroneus longus and peroneus brevis tenosynovitis. The posterior plantar aponeurosis is intact. No significant joint effusion is seen. The musculature is intact. There is no evidence of soft tissue mass or cyst. IMPRESSION: Postoperative change of the lateral malleolus with adjacent bone marrow edema. No acute fracture. Poor visualization of the anterior talofibular and calcaneofibular ligaments of uncertain significance. Peroneus longus and peroneus brevis tenosynovitis. Reviewed, Interpreted and Dictated by Babar Samaniego III, MD Transcribed by Rajat Pa Authenticated and [facility]
== END ==
LOC: RAD 07:42
PROVIDERS: PCP Internal Medicine Adolescent Medicine; Visit Provider Podiatrist
DX: M25.572 Pain in left ankle and joints of left foot (principal); M25.472 Effusion, left ankle; S86.112S Strain of other muscle(s) and tendon(s) of posterior muscle group at lower leg level, left leg, sequela; S86.312A Strain of muscle(s) and tendon(s) of peroneal muscle group at lower leg level, left leg, initial encounter
CPT/HCPCS: 73721

== ENCOUNTER 2022-12-23 19:12 | Emergency (ER) | payer OTHER, SELFPAY ==
[2022-12-23 19:14] VITALS: BP 154/100; PULSE 115; RESP 19; TEMP 36.5; O2SAT 99; BMI 31.8
[2022-12-23 19:28] LABS: Microscopic, Urine URINE MICROSCOPIC (MICROSCOPIC)
--- NOTE | 2022-12-23 19:30 | HMH.EDGENADL ---
Discharge Plan Disposition Patient Disposition: Home, Self-Care Condition: Good Chief Complaint: Nausea/Vomiting/Diarrhea Prescriptions Prescriptions: No Action progesterone micronized 200 mg capsule 200 mg vaginal HS Label Comments: INSERT 1 CAPSULE INTO THE VAGINA 1 TIME EACH DAY AT BEDTIME Referrals Follow up/Referrals: Julio Schmitz MD [Primary Care Provider] - See instructions Jessica Bailey DO [Staff Physician] - See instructions Clinical Impressions Clinical Impression: Nausea and vomiting during , , Hyperemesis gravidarum Instructions Patient Instructions: Nausea of (Alternative Therapy), DI for Hyperemesis Gravidarum Discharge ED Provider: Daniel Sanchez Adult HPI <Daniel Sanchez MD - Last Filed: 12/23/22 19:34> General Chief complaint: Nausea/Vomiting/Diarrhea Stated complaint: 6wk Preg with vomiting Time Seen by Provider: 12/23/22 20:00 Mode of Arrival: Ambulatory Source of Information: Patient Limitations: No Limitations Description of Symptoms (Recalled from ER Triage Doc. by RN): 22 F, , approximately 5-6 weeks presents from home with increased nausea/vomiting. She is scheduled to see her URGENT CARE TECHNICIAN on Wednesday- Dr. Elias. Patient has been unable to keep anything down, and has no medication to treat her nausea. History of Present Illness HPI narrative: Patient presents to the emergency department with nausea, vomiting. She states she is approximately 6 weeks . Denies any abdominal pain, vaginal bleeding, vaginal leaking. Denies any fever, chills, cough, congestion. States that she has had no significant diarrhea. She believes her symptoms started approximately a week ago and significantly worsened just this afternoon. Related Data Home Medications Medication Instructions Recorded Confirmed progesterone micronized 200 mg 200 mg vaginal HS 12/23/22 12/23/22 capsule Allergies Allergy/AdvReac Type Severity Reaction Status Date / Time Penicillins Allergy Severe Anaphylaxis Verified 12/14/22 11:16 povidone-iodine AdvReac Mild Itching Verified 12/14/22 11:16 [From Betadine] soap [From Betadine] AdvReac Mild Itching Verified 12/14/22 11:16 <Doni Haq (ED)MD - Last Filed: 12/23/22 21:49> General Source of Information: Medical Record PFSH <Daniel Sanchez MD - Last Filed: 12/23/22 19:34> [facility] Disclaimer: The information contained in this section may have been updated after the patient was seen, as this information can be updated by other users. Social History Smoking Status: Never smoker second hand exposure: No alcohol intake: never substance use type: denies use current occupational status: employed Travel in the last 8 weeks: None current occupational exposures/hazards: No caffeine: Yes <Daniel Sanchez MD - Last Filed: 12/23/22 19:34> Constitutional Constitutional: Reports poor appetite Gastrointestinal Gastrointestingal: Reports nausea and vomiting <Doni Haq MD (ED) - Last Filed: 12/23/22 21:49> ROS Obtained: Yes All systems reviewed & no additional complaints except as documented Physical Exam <Daniel Sanchez MD - Last Filed: 12/23/22 19:34> General General appearance: alert and in no apparent distress Head Head exam: atraumatic and normocephalic Eye Eye exam: Present normal appearance, PERRL and EOMI Respiratory Respiratory exam: Present normal lung sounds bilaterally Cardiovascular Cardiovascular exam: Present regular rate, normal rhythm and normal heart sounds Abdominal Exam Abdominal exam: Present soft, normal bowel sounds and other (No significant abdominal tenderness. No guarding. No rebound.) Extremities Exam Extremities exam: Present normal inspection and full ROM Neurological Exam Neurological exam: Present alert and oriented X3 Psychiatric Psychiatric exam: Present normal affect and norm
[2022-12-23 19:35] LABS: Urine Pregnancy, HCG Qual. Positive (Negative)
[2022-12-23 19:35] LABS: Appearance,Urine CLOUDY (Clear); Bilirubin,Urine Negative (Negative); Blood, Urine 1+ (Negative); Color,Urine YELLOW (Yellow); Glucose,Urine (UA) Negative (Negative); Ketones,Urine Negative (Negative); Leukocyte Esterase,Urine 2+ (Negative); Nitrate,Urine Negative (Negative); Protein,Urine 1+ (Negative); Specific Gravity, Urine 1.025 (1.005-1.030); Urobilinogen,Urine 0.2 EU/dl (0.2)
[2022-12-23 19:40] LABS: Basophils # 0.1 K/mm3 (0-0.2); Basophils % 0.5 % (0.1-2.0); Eosinophils # 0.3 K/mm3 (0.0-0.4); Eosinophils % 1.9 % (0.1-12.0); Hematocrit 44.2 % (37.0-47.0); Lymphocytes # 3.5 K/mm3 (0.7-4.5); Mean Corpuscular Hemoglobin 28.8 pg (27.0-31.2); Mean Corpuscular Volume 84.9 fl (81-99); Mean Platelet Volume 8.6 fl (7.4-10.4); Monocytes # 0.5 K/mm3 (0.1-1.0); Monocytes % 3.4 % (1.7-9.3); Neutrophils # 10.9 K/mm3 (1.8-7.8); Neutrophils % 71.2 % (37.0-80.0); Platelet Count 387 K/mm3 (142-424); Red Blood Count 5.21 M/mm3 (4.20-5.40); White Blood Count 15.3 K/mm3 (4.8-10.8)
[2022-12-23 19:41] LABS: MANUAL DIFFERENTIAL MANUAL DIFFERENTIAL (MANUAL DIFF)
[2022-12-23 20:22] LABS: Chloride 98 mmol/L (98-107); Potassium 3.4 mmoL/L (3.5-5.1); Sodium 136 mmol/L (136-145)
[2022-12-23 20:25] LABS: Anion Gap 19.4 mEq/L (5-15); Blood Urea Nitrogen 10 mg/dl (7-17); Calcium 9.7 mg/dl (8.4-10.2); Carbon Dioxide 22 mmol/L (22.0-30.0); Creatinine Clearance Estimated 158 mL/min (50-200); Estimated Glomerular Filt Rate 106 ml/min (>60); GFR (African American) 128 ML/MIN (>60); Glucose 87 mg/dl (74-100)
[2022-12-23 20:27] LABS: Bacteria,Urine 2+ /lpf; Squamous Epithelial Cell,Urine 20-50 #/hpf (0-5); WBC,Urine 20-50 #/hpf (0-3)
[2022-12-23 20:27] LABS: Lymphocytes % 32 % (10-50); Monocytes % 4 % (2-9); Neutrophils % 64 % (42-76); Total Cells Counted 100
[2022-12-23 20:28] LABS: Platelet Estimate Slight Increase
[2022-12-23 20:29] LABS: Anisocytosis 1+; Macrocytosis 1+; Polychromasia 1+
--- NOTE | 2022-12-23 21:41 | PC.NURSE ---
Patient tolerating PO. Attending notified
--- NOTE | 2022-12-23 21:49 | PC.NURSE ---
spoke with regarding patients anti nausea medicine. requesting phenergan po
[2022-12-23 21:51] VITALS: BP 150/90; PULSE 88; RESP 18; TEMP 36.6; O2SAT 99
== END 2022-12-23 21:57 | disposition home or self-care (01) ==
PROVIDERS: Emergency Provider Emergency Medicine; PCP Internal Medicine Adolescent Medicine
DX: O21.9 Vomiting of pregnancy, unspecified (principal); Z3A.01 Less than 8 weeks gestation of pregnancy
CPT/HCPCS: 80048; 81001; 81025; 84702; 85007; 85025; 87086; 96361; 96365; 96375; 99284; 99285; J0696; J2405

== ENCOUNTER → 2022-12-28 14:54 | Outpatient (CLI) | payer OTHER, SELFPAY ==
[2022-12-28 15:29] LABS: Basophils # 0.1 K/mm3 (0-0.2); Basophils % 0.6 % (0.1-2.0); Eosinophils # 0.1 K/mm3 (0.0-0.4); Eosinophils % 0.9 % (0.1-12.0); Hematocrit 40.6 % (37.0-47.0); Hemoglobin 13.5 g/dL (12.2-16.2); Lymphocytes # 2.5 K/mm3 (0.7-4.5); Lymphocytes % 22.4 % (10-50); Mean Corpuscular HGB Conc 33.2 g/dL (31.8-35.4); Mean Corpuscular Hemoglobin 28.2 pg (27.0-31.2); Mean Corpuscular Volume 84.8 fl (81-99); Mean Platelet Volume 8.9 fl (7.4-10.4); Monocytes # 0.4 K/mm3 (0.1-1.0); Monocytes % 3.7 % (1.7-9.3); Neutrophils # 8.2 K/mm3 (1.8-7.8); Neutrophils % 72.4 % (37.0-80.0); Platelet Count 378 K/mm3 (142-424); Red Blood Count 4.79 M/mm3 (4.20-5.40); White Blood Count 11.3 K/mm3 (4.8-10.8)
[2022-12-30 08:23] LABS: HIV Screen 4th Generation wRfx Non Reactive (Non Reactive); Rubella Antibodies, IgG 4.45 index (Immune >0.99)
[2022-12-30 12:19] LABS: Rapid Plasma Reagin Ab Titer Non Reactive (NonRea<1:1)
[2023-01-25 12:12] LABS: Hepatitis B Surface Antigen NEGATIVE
[2023-01-25 12:14] LABS: Hepatitis C Antibody Non Reactive
== END ==
PROVIDERS: PCP Internal Medicine Adolescent Medicine; Visit Provider Obstetrics & Gynecology
DX: Z34.90 Encounter for supervision of normal pregnancy, unspecified, unspecified trimester (principal)
CPT/HCPCS: 36415; 85025; 86593; 86703; 86762; 86850; 87086; 87340; 87380; G0432

== ENCOUNTER → 2022-12-28 17:03 | Outpatient (CLI) | payer OTHER, SELFPAY | PROVIDERS: Visit Provider Obstetrics & Gynecology | DX: Z34.90 Encounter for supervision of normal pregnancy, unspecified, unspecified trimester (principal) ==

== ENCOUNTER 2023-01-06 17:11 | Emergency (ER) | payer OTHER, SELFPAY ==
[2023-01-06 17:12] VITALS: BP 139/90; PULSE 128; RESP 18; TEMP 36.8; O2SAT 98; BMI 31.1
[2023-01-06 17:19] VITALS: BP 139/90; PULSE 100; O2SAT 100
--- NOTE | 2023-01-06 17:29 | HMH.EDGENADL ---
Discharge Plan Disposition Patient Disposition: Home, Self-Care Prescriptions Prescriptions: New nitrofurantoin macrocrystal 100 mg capsule 100 mg PO BID 5 Days Qty: 10 0RF Rx Instructions: must administer with a meal/food No Action prenat.vits,darya,wut-[id number] Tablet 1 tab PO DAILY promethazine 12.5 mg tablet 12.5 mg PO Q6H PRN (Reason: nausea and vomiting) Qty: 20 1RF progesterone micronized 200 mg capsule 200 mg vaginal HS Qty: 30 1RF Referrals Follow up/Referrals: Julio Schmitz MD [Primary Care Provider] - See instructions Clinical Impressions Clinical Impression: Nausea and vomiting during , Asymptomatic bacteriuria during Instructions Patient Instructions: DI for Diarrhea and Traveler's Diarrhea -- Adult, DI for Diarrhea and Traveler's Diarrhea -- Child, DI for Nausea -- Adult, DI for Nausea -- Child Discharge ED Provider: Monica Olivarez General Adult HPI General Chief complaint: Nausea/Vomiting/Diarrhea Stated complaint: vomiting ALFARO Time Seen by Provider: 01/06/23 17:30 History of Present Illness HPI narrative: Patient is a 22-year-old female G1, P0 at 8 weeks gestation by LMP presenting with nausea vomiting and headache. She states that she has had significant nausea vomiting over the last several days has been prescribed promethazine outpatient without any significant improvement. She has been told she has not had to take any Tylenol or any other medications and she states she is miserable. Patient denies any neurologic symptoms any thunderclap component or any neurologic symptoms. Patient has no abdominal pain no loss of bleeding no fluid loss or contractions. Related Data Home Medications Medication Instructions Recorded Confirmed prenat.vits,darya,vlv-fiot-ufaqv 1 tab PO DAILY 12/28/22 12/28/22 Previous Rx's Medication Instructions Recorded progesterone micronized 200 mg 200 mg vaginal HS #30 caps 12/24/22 capsule promethazine 12.5 mg tablet 12.5 mg PO Q6H PRN nausea and 12/28/22 vomiting #20 tabs nitrofurantoin macrocrystal 100 mg 100 mg PO BID 5 days #10 caps 01/06/23 capsule Allergies Allergy/AdvReac Type Severity Reaction Status Date / Time Penicillins Allergy Severe Anaphylaxis Verified 12/28/22 14:15 povidone-iodine AdvReac Mild Itching Verified 12/28/22 14:15 [From Betadine] soap [From Betadine] AdvReac Mild Itching Verified 12/28/22 14:15 [facility] Disclaimer: The information contained in this section may have been updated after the patient was seen, as this information can be updated by other users. Medical History (Updated 01/06/23 @ 19:33 by Monica Olivarez MD) Endometritis History of ankle fracture History of PCOS Maternal obesity affecting , antepartum Rh negative state in antepartum period Surgical History H/O adenoidectomy History of ankle surgery History of ankle surgery Hx of tonsillectomy [place] teeth extracted Family History Other Diabetes Heart attack Hyperlipidemia Hypertension Thyroid disorder Social History Smoking Status: Never smoker second hand exposure: No alcohol intake: never substance use type: denies use current occupational status: employed Travel in the last 8 weeks: None current occupational exposures/hazards: No caffeine: Yes ROS Obtained: Yes All systems reviewed & no additional complaints except as documented Physical Exam General General appearance: alert and in no apparent distress Respiratory Respiratory exam: Present normal lung sounds bilaterally; Absent respiratory distress Cardiovascular Cardiovascular exam: Present regular rate; Absent tachycardia Neurological Exam Neurological exam: Present alert and oriented X3 Medical Decision Making Corey Inquir
[2023-01-06 17:30] VITALS: BP 140/98; PULSE 99; O2SAT 98
[2023-01-06 17:31] VITALS: BMI 32.0
[2023-01-06 17:45] LABS: Microscopic, Urine URINE MICROSCOPIC (MICROSCOPIC)
[2023-01-06 17:46] LABS: Basophils # 0.1 K/mm3 (0-0.2); Basophils % 0.3 % (0.1-2.0); Eosinophils # 0.2 K/mm3 (0.0-0.4); Eosinophils % 1.2 % (0.1-12.0); Hemoglobin 13.2 g/dL (12.2-16.2); Lymphocytes # 2.4 K/mm3 (0.7-4.5); Lymphocytes % 13.3 % (10-50); Mean Corpuscular HGB Conc 32.3 g/dL (31.8-35.4); Mean Corpuscular Hemoglobin 27.8 pg (27.0-31.2); Mean Corpuscular Volume 86.1 fl (81-99); Mean Platelet Volume 8.8 fl (7.4-10.4); Monocytes # 0.6 K/mm3 (0.1-1.0); Monocytes % 3.3 % (1.7-9.3); Neutrophils # 14.7 K/mm3 (1.8-7.8); Neutrophils % 81.8 % (37.0-80.0); Platelet Count 372 K/mm3 (142-424); Red Blood Count 4.76 M/mm3 (4.20-5.40); White Blood Count 17.9 K/mm3 (4.8-10.8)
[2023-01-06 17:49] LABS: Chloride 99 mmol/L (98-107); MANUAL DIFFERENTIAL MANUAL DIFFERENTIAL (MANUAL DIFF); Potassium 3.7 mmoL/L (3.5-5.1); Sodium 134 mmol/L (136-145)
[2023-01-06 17:49] LABS: Appearance,Urine CLEAR (Clear); Bilirubin,Urine Negative (Negative); Blood, Urine Negative (Negative); Color,Urine YELLOW (Yellow); Glucose,Urine (UA) Negative (Negative); Ketones,Urine Negative (Negative); Leukocyte Esterase,Urine 2+ (Negative); Nitrate,Urine Negative (Negative); Protein,Urine Negative (Negative); Urobilinogen,Urine 0.2 EU/dl (0.2)
[2023-01-06 17:52] LABS: Alanine Aminotransferase 23 U/L (12-78); Albumin Level 4.4 g/dl (3.5-5.0); Albumin/Globulin Ratio 1.4 (1.1-1.8); Alkaline Phosphatase 59 U/L (38-126); Anion Gap 14.7 mEq/L (5-15); Aspartate Amino Transferase 26 U/L (14-36); Bilirubin,Total 0.4 mg/dl (0.2-1.3); Blood Urea Nitrogen 7 mg/dl (7-17); Calcium 9.9 mg/dl (8.4-10.2); Carbon Dioxide 24 mmol/L (22.0-30.0); Creatinine Clearance Estimated 186 mL/min (50-200); Estimated Glomerular Filt Rate 126 ml/min (>60); GFR (African American) 153 ML/MIN (>60); Globulin 3.1 g/dL (1.3-3.2); Glucose 87 mg/dl (74-100); Total Protein,Serum 7.5 g/dl (6.3-8.2)
[2023-01-06 18:00] VITALS: BP 131/86; PULSE 93; O2SAT 99
[2023-01-06 18:13] LABS: Eosinophils % 2 % (0-3); Lymphocytes % 22 % (10-50); Neutrophils % 76 % (42-76); Total Cells Counted 100
[2023-01-06 18:15] LABS: Platelet Estimate Normal; RBC Morphology Normal
[2023-01-06 18:19] LABS: Bacteria,Urine 2+ /lpf; RBC,Urine Occasional #/hpf (0-3)
[2023-01-06 18:30] VITALS: BP 129/82; PULSE 81; O2SAT 97
[2023-01-06 19:31] VITALS: BP 132/81; PULSE 79; RESP 17; TEMP 36.8; O2SAT 98
== END 2023-01-06 19:48 | disposition home or self-care (01) ==
PROVIDERS: Emergency Provider Student in an Organized Health Care Education/Training Program; PCP Internal Medicine Adolescent Medicine
DX: O21.9 Vomiting of pregnancy, unspecified (principal); O23.91 Unspecified genitourinary tract infection in pregnancy, first trimester; Z3A.08 8 weeks gestation of pregnancy
CPT/HCPCS: 80053; 81001; 85007; 85025; 87086; 96361; 96374; 99284; 99285; J2405

== ENCOUNTER → 2023-01-15 16:05 | Outpatient (CLI) | payer OTHER, SELFPAY ==
[2023-01-17 08:15] LABS: Progesterone 17.6 ng/mL (.)
== END ==
PROVIDERS: PCP Internal Medicine Adolescent Medicine; Visit Provider Obstetrics & Gynecology
DX: Z34.91 Encounter for supervision of normal pregnancy, unspecified, first trimester (principal)
CPT/HCPCS: 36415; 84144

== ENCOUNTER 2023-02-03 16:00 | Outpatient (RCR) | payer OTHER, SELFPAY ==
--- NOTE | 2023-01-06 16:03 | HMH.PTOPEV ---
PT Outpatient Evaluation Rehab PT Outpatient Evaluation Start: 01/06/23 15:00 Freq: Status: Active Protocol: Document 01/06/23 15:00 PDESERNEVILLEX (Rec: 01/06/23 16:03 PDESEROUX [id number]) E-signed By Phillip Olivarez, PT Outpatient Therapy Subjective History Subjective History Pt. is a 22 year old female whom presents to [facility] in [place] for the initial evaluation this date( 01/06/23) w/ c/o chronic and intermittent LLE ankle/ft. P!, edema, and tingling of traumatic onset after twisting my ankle in 2022. Pt. reports donning CAM bt. walker per MD order for 2 weeks, just released to donning ankle brace at all times last Wednesday(01/01/23). Pt. reports having an increase in symptom complaint w/ walking, PF, and stepping funny. Pt. reports having symptom relief w/ resting and icing. Recent diagnostic imaging positive for peroneal tendonitis and negative for fx . nor tear per pt. report. Pt. denies having injections for current complaint. Pt. reports currently being 8 weeks and 4 days today(01/06/23) . Current medications include pre-marion vitamins and Progesterone. PMH includes , S/P LLE ankle reconstruction, Tonsillectomy, Adenoidectomy, Endometriosis, and Polycystic Ovary Syndrome (PCOS). Chief Complaint Pain,Clicks,Swelling,Gives out /Unstable,Paresthesia,Weakness Symptom Type Ache,Sharp,Dull,Stabbing, Tingling,Shooting Symptoms Relieved By Rest/Positioning,Ice,Brace/ Support Symptoms Aggravated By Standing,Physical Activity, Twisting,Walking Prior Functional Limitations None Current Functional Limitations Housework,Standing,Recreation
== END 2023-02-03 17:00 | disposition home or self-care (01) ==
LOC: PT 16:00
PROVIDERS: PCP Podiatrist; Visit Provider Podiatrist
DX: M76.72 Peroneal tendinitis, left leg (principal)
CPT/HCPCS: 97010; 97110; 97112; 97140; 97163

== ENCOUNTER 2023-02-11 22:50 | Emergency (ER) | payer OTHER, SELFPAY ==
[2023-02-11 22:50] VITALS: BP 137/73; PULSE 74; RESP 16; TEMP 37; O2SAT 98; BMI 30.2
[2023-02-11 23:53] LABS: Microscopic, Urine URINE MICROSCOPIC (MICROSCOPIC)
[2023-02-12] VITALS: PULSE 69; RESP 18; O2SAT 100
[2023-02-12 00:04] LABS: Basophils # 0.1 K/mm3 (0-0.2); Basophils % 0.4 % (0.1-2.0); Eosinophils # 0.2 K/mm3 (0.0-0.4); Eosinophils % 1.1 % (0.1-12.0); Hematocrit 38.8 % (37.0-47.0); Hemoglobin 12.7 g/dL (12.2-16.2); Lymphocytes # 2.4 K/mm3 (0.7-4.5); Lymphocytes % 17.3 % (10-50); Mean Corpuscular HGB Conc 32.6 g/dL (31.8-35.4); Mean Corpuscular Hemoglobin 27.4 pg (27.0-31.2); Mean Corpuscular Volume 84.1 fl (81-99); Mean Platelet Volume 8.5 fl (7.4-10.4); Monocytes # 0.5 K/mm3 (0.1-1.0); Monocytes % 3.3 % (1.7-9.3); Neutrophils # 10.9 K/mm3 (1.8-7.8); Neutrophils % 77.9 % (37.0-80.0); Platelet Count 338 K/mm3 (142-424); Red Blood Count 4.62 M/mm3 (4.20-5.40); Red Cell Distribution Width 13.5 % (11.5-17.5)
--- NOTE | 2023-02-12 00:04 | PC.NURSE ---
notified xray of ultrasound order
[2023-02-12 00:07] LABS: Chloride 103 mmol/L (98-107); Potassium 3.7 mmoL/L (3.5-5.1); Sodium 136 mmol/L (136-145)
[2023-02-12 00:09] LABS: Alanine Aminotransferase 21 U/L (12-78); Albumin Level 4.2 g/dl (3.5-5.0); Albumin/Globulin Ratio 1.4 (1.1-1.8); Alkaline Phosphatase 68 U/L (38-126); Amylase 79 U/L (30-110); Anion Gap 12.7 mEq/L (5-15); Aspartate Amino Transferase 21 U/L (14-36); Bilirubin,Total 0.4 mg/dl (0.2-1.3); Blood Urea Nitrogen 7 mg/dl (7-17); Calcium 9.5 mg/dl (8.4-10.2); Carbon Dioxide 24 mmol/L (22.0-30.0); Creatinine Clearance Estimated 210 mL/min (50-200); Estimated Glomerular Filt Rate 156 ml/min (>60); GFR (African American) 188 ML/MIN (>60); Globulin 3.1 g/dL (1.3-3.2); Glucose 80 mg/dl (74-100); Total Protein,Serum 7.3 g/dl (6.3-8.2)
[2023-02-12 00:09] LABS: Appearance,Urine CLEAR (Clear); Bilirubin,Urine Negative (Negative); Blood, Urine Negative (Negative); Color,Urine YELLOW (Yellow); Glucose,Urine (UA) Negative (Negative); Ketones,Urine Negative (Negative); Leukocyte Esterase,Urine 2+ (Negative); Nitrate,Urine Negative (Negative); Protein,Urine TRACE (Negative); Specific Gravity, Urine >= 1.030 (1.005-1.030); Urobilinogen,Urine 0.2 EU/dl (0.2)
[2023-02-12 00:10] LABS: Lipase 40 U/L (23-300)
[2023-02-12 00:22] LABS: Bacteria,Urine 1+ /lpf; Squamous Epithelial Cell,Urine Occasional #/hpf (0-5)
--- NOTE | 2023-02-12 00:32 | US_ITS ---
PROCEDURE INFORMATION: Exam: US After First Trimester, Transabdominal Exam date and time: 02/12/2023 12:32 AM Age: 22 years old Clinical indication: Cramping TECHNIQUE: Imaging protocol: Real-time transabdominal obstetrical ultrasound of the maternal pelvis and a second or third trimester with image documentation. COMPARISON: CT ABDOMEN PELVIS W CON 08/21/2021 11:22 AM FINDINGS: Gestation: Hernandez living intrauterine gestation with crown-rump length measuring 7.64 cm heart rate: 139 bpm. presentation: Variable Placenta: Unremarkable. No subchorionic bleed. Placenta is anterior. Amniotic fluid: Subjectively normal. Gestational age (AUA): 13 weeks 5 days. MATERNAL: Uterus: Unremarkable. Cervix: Unremarkable. Measures 3.31 cm. Right ovary/adnexa: Measures 3.1 x 2.5 x 1.5 cm. Left ovary/adnexa: Measures 3.9 x 2.1 x 2.3 cm. Intraperitoneal space: No intraperitoneal free fluid. IMPRESSION: Hernandez living intrauterine gestation with estimated gestational age based on today's ultrasound of 13 weeks 5 days.
--- NOTE | 2023-02-12 00:33 | PC.NURSE ---
pt transported to ultrasound
--- NOTE | 2023-02-12 00:56 | PC.NURSE ---
pt returned from ultrasound
--- NOTE | 2023-02-12 01:23 | HMH.EDNVD ---
Discharge Plan Disposition Patient Disposition: Home, Self-Care Prescriptions Prescriptions: New cephalexin [cephalexin] 500 mg capsule 500 mg PO TID Qty: 30 0RF No Action prenat.vits,darya,[id number]-[id number] Tablet 1 tab PO DAILY promethazine 12.5 mg tablet 12.5 mg PO Q6H PRN (Reason: nausea and vomiting) Qty: 20 1RF Referrals Follow up/Referrals: Julio Schmitz MD [Primary Care Provider] - See instructions Jessica Bailey DO [Staff Physician] - See instructions Clinical Impressions Clinical Impression: UTI (urinary tract infection), Instructions Patient Instructions: DI for Urinary Tract Infection (UTI) Discharge ED Provider: Eun (ED)Doni Nausea/Vomiting/Diarrhea HPI General Chief complaint: Nausea/Vomiting/Diarrhea Stated complaint: cramping, 14 weeks Time Seen by Provider: 02/12/23 00:00 Mode of Arrival: Ambulatory Source of Information: Patient, Significant Other and Medical Record Limitations: No Limitations Description of Symptoms (Recalled from ER Triage Doc. by RN): Pt is 14 weeks , states she is having cramping, nausea and vomiting for 2 days. Denies any bleeding. History of Present Illness HPI Narrative: pt over the last 2 days has vomiting and diarrhea with lower pelvic pain w/o vag bleeding - 14 weeks - complaint: nausea, vomiting and abdominal pain Onset (ago): day(s) Associated Abdominal Pain: Yes Location of pain: other (pelvic) Severity: moderate Associated symptoms: denies other symptoms Related Data Home Medications Medication Instructions Recorded Confirmed prenat.vits,darya,zwh-hvgk-mlonh 1 tab PO DAILY 12/28/22 01/25/23 Previous Rx's Medication Instructions Recorded promethazine 12.5 mg tablet 12.5 mg PO Q6H PRN nausea and 12/28/22 vomiting #20 tabs cephalexin 500 mg capsule 500 mg PO TID #30 caps 02/12/23 Allergies Allergy/AdvReac Type Severity Reaction Status Date / Time Penicillins Allergy Severe Anaphylaxis Verified 01/25/23 11:15 povidone-iodine AdvReac Mild Itching Verified 01/25/23 11:15 [From Betadine] soap [From Betadine] AdvReac Mild Itching Verified 01/25/23 11:15 [facility] Disclaimer: The information contained in this section may have been updated after the patient was seen, as this information can be updated by other users. Medical History (Updated 02/12/23 @ 02:24 by Doni OQUENDO)MD) Endometritis GBS bacteriuria History of ankle fracture History of PCOS Maternal obesity affecting , antepartum Rh negative state in antepartum period Surgical History H/O adenoidectomy History of ankle surgery History of ankle surgery Hx of tonsillectomy [place] teeth extracted Family History Other Diabetes Heart attack Hyperlipidemia Hypertension Thyroid disorder Social History Smoking Status: Never smoker second hand exposure: No alcohol intake: never substance use type: denies use current occupational status: employed Travel in the last 8 weeks: None current occupational exposures/hazards: No caffeine: Yes ROS Obtained: Yes All systems reviewed & no additional complaints except as documented Physical Exam General General appearance: alert Head Head exam: normocephalic Eye Eye exam: Present PERRL and EOMI ENT ENT exam: Present mucous membranes moist Neck Neck exam: Present trachea midline Respiratory Respiratory exam: Present normal lung sounds bilaterally; Absent respiratory distress Cardiovascular Cardiovascular exam: Present regular rate Abdominal Exam Abdominal exam: Present soft; Absent tenderness or guarding Extremities Exam Extremities exam: Present full ROM Neurological Exam Neurological exam: Present alert, oriented X3 and CN II-XII intact; Absent motor sensory defi
[2023-02-12 02:16] VITALS: BP 134/72; PULSE 67; RESP 18; TEMP 37; O2SAT 100
== END 2023-02-12 02:26 | disposition home or self-care (01) ==
PROVIDERS: Emergency Provider Emergency Medicine; PCP Internal Medicine Adolescent Medicine
DX: O23.42 Unspecified infection of urinary tract in pregnancy, second trimester (principal); O21.9 Vomiting of pregnancy, unspecified; O99.212 Obesity complicating pregnancy, second trimester; Z3A.14 14 weeks gestation of pregnancy
CPT/HCPCS: 76805; 80053; 81001; 82150; 83690; 84702; 85025; 87086; 96361; 96374; 99284; 99285; J2405

== ENCOUNTER 2023-02-25 11:23 | Outpatient (CLI) | payer OTHER, SELFPAY ==
[2023-02-25 11:49] VITALS: BMI 30.3
[2023-02-25 13:42] LABS: Chloride 104 mmol/L (98-107); Sodium 136 mmol/L (136-145)
[2023-02-25 13:43] LABS: Potassium 3.8 mmoL/L (3.5-5.1)
[2023-02-25 13:45] LABS: Alanine Aminotransferase 21 U/L (12-78); Alkaline Phosphatase 66 U/L (38-126); Amylase 78 U/L (30-110); Anion Gap 11.8 mEq/L (5-15); Aspartate Amino Transferase 25 U/L (14-36); Bilirubin,Total 0.5 mg/dl (0.2-1.3); Blood Urea Nitrogen 5 mg/dl (7-17); Calcium 9.7 mg/dl (8.4-10.2); Carbon Dioxide 24 mmol/L (22.0-30.0); Creatinine Clearance Estimated 264 mL/min (50-200); Estimated Glomerular Filt Rate 201 ml/min (>60); GFR (African American) 244 ML/MIN (>60); Glucose 87 mg/dl (74-100); Lipase 31 U/L (23-300)
[2023-02-25 13:46] LABS: Albumin Level 3.9 g/dl (3.5-5.0); Albumin/Globulin Ratio 1.3 (1.1-1.8); Globulin 3.1 g/dL (1.3-3.2)
[2023-02-25 14:44] VITALS: BP 130/88; PULSE 103; RESP 18; TEMP 36.9; O2SAT 98; BMI 30.3
[2023-02-25 15:10] LABS: Hematocrit 35.9 % (37.0-47.0); Hemoglobin 12.2 g/dL (12.2-16.2); Mean Corpuscular Hemoglobin 28.3 pg (27.0-31.2); Mean Corpuscular Volume 83.3 fl (81-99); Platelet Count 349 K/mm3 (142-424); Red Blood Count 4.31 M/mm3 (4.20-5.40)
[2023-02-25 15:12] LABS: Lymphocytes % 14.7 % (10-50); Monocytes % 3.9 % (1.7-9.3); Neutrophils % 80.1 % (37.0-80.0)
[2023-02-25 15:13] LABS: Basophils # 0.1 K/mm3 (0-0.2); Basophils % 0.6 % (0.1-2.0); Eosinophils # 0.1 K/mm3 (0.0-0.4); Eosinophils % 0.5 % (0.1-12.0); Lymphocytes # 1.7 K/mm3 (0.7-4.5); Monocytes # 0.5 K/mm3 (0.1-1.0); Neutrophils # 9.4 K/mm3 (1.8-7.8)
[2023-02-25 15:14] LABS: White Blood Count 11.7 K/mm3 (4.8-10.8)
== END 2023-02-25 14:04 | disposition home or self-care (01) ==
LOC: OBOUT 11:24 → OB 11:24
PROVIDERS: PCP Internal Medicine Adolescent Medicine; Visit Provider Obstetrics & Gynecology
DX: O26.892 Other specified pregnancy related conditions, second trimester (principal); Z3A.15 15 weeks gestation of pregnancy; R11.2 Nausea with vomiting, unspecified
CPT/HCPCS: 80053; 82150; 83690; 85025; 96365; 96366; G0463; J2405

== ENCOUNTER 2023-02-27 15:32 | Outpatient (CLI) | payer OTHER, SELFPAY ==
[2023-02-27 15:55] VITALS: BMI 32.5
[2023-02-27 15:59] LABS: Microscopic, Urine URINE MICROSCOPIC (MICROSCOPIC)
[2023-02-27 16:00] VITALS: BP 124/81; PULSE 94; RESP 20; TEMP 36.8; O2SAT 100; BMI 30.5
[2023-02-27 16:02] LABS: Blood, Urine Negative (Negative); Color,Urine YELLOW (Yellow); Glucose,Urine (UA) Negative (Negative); Ketones,Urine TRACE (Negative); Leukocyte Esterase,Urine 2+ (Negative); Nitrate,Urine Negative (Negative); PH,Urine 7.5 (5.0-8.5); Protein,Urine TRACE (Negative)
[2023-02-27 16:05] LABS: Appearance,Urine Slightly Cloudy (Clear); Bilirubin,Urine 1+ (Negative)
[2023-02-27 16:14] LABS: Barbiturates Screen,Urine Negative ng/ml (<200)
[2023-02-27 16:15] LABS: Benzodiazepines Screen,Urine Negative ng/ml (<200)
[2023-02-27 16:16] LABS: Amphetamine/Metha Screen,Urine Negative ng/ml (<1000); Cannabinoid Screen,Urine Negative ng/ml (<50)
[2023-02-27 16:17] LABS: Bacteria,Urine Trace /lpf; Cocaine Screen,Urine Negative ng/ml (<300); Squamous Epithelial Cell,Urine Occasional #/hpf (0-5)
[2023-02-27 16:18] LABS: Methadone Screen,Urine Negative ng/ml (<300); Opiate Screen,Urine Negative ng/ml (<300)
[2023-02-27 16:19] LABS: Phencyclidine Screen,Urine Negative ng/ml (<25)
--- NOTE | 2023-02-27 16:41 | PC.NURSE ---
spoke with HEDY (detention sergeant pharmacist) Okay to give Rocephin r/t patients penicillin allergy
== END 2023-02-27 18:15 | disposition home or self-care (01) ==
LOC: OBOUT 15:33 → OB 15:34
PROVIDERS: PCP Internal Medicine Adolescent Medicine; Visit Provider Nurse Practitioner Obstetrics & Gynecology
DX: O21.9 Vomiting of pregnancy, unspecified (principal); Z3A.16 16 weeks gestation of pregnancy
CPT/HCPCS: 80305; 81001; 87086; 96365; 96366; 96367; G0463; J0696; J2405

== ENCOUNTER → 2023-03-08 07:45 | Outpatient (CLI) | payer OTHER, SELFPAY ==
[2023-03-08] VITALS (8 sets, daily range): BP systolic 102–128; BP diastolic 68–81; PULSE 81–98; RESP 18; TEMP 36.7; O2SAT 99–100
== END ==
PROVIDERS: PCP Internal Medicine Adolescent Medicine; Visit Provider Obstetrics & Gynecology
DX: Z34.91 Encounter for supervision of normal pregnancy, unspecified, first trimester (principal); R51.9 Headache, unspecified; R11.10 Vomiting, unspecified
CPT/HCPCS: 96365; 96366; 96375; J2405

== ENCOUNTER 2023-03-12 08:55 | Outpatient (CLI) | payer OTHER, SELFPAY ==
[2023-03-12 09:16] VITALS: BMI 31.1
[2023-03-12 09:22] VITALS: BP 118/73; PULSE 103; RESP 18; TEMP 37.1; O2SAT 99; BMI 31.1
== END 2023-03-12 10:15 | disposition home or self-care (01) ==
LOC: OBOUT 08:58 → OB 08:59
PROVIDERS: PCP Internal Medicine Adolescent Medicine; Referring Provider Obstetrics & Gynecology; Visit Provider Nurse Practitioner Obstetrics & Gynecology
DX: O26.892 Other specified pregnancy related conditions, second trimester (principal); Z3A.18 18 weeks gestation of pregnancy; R11.2 Nausea with vomiting, unspecified; E86.0 Dehydration
CPT/HCPCS: 96365; G0463

== ENCOUNTER 2023-03-15 07:27 | Outpatient (CLI) | payer OTHER, SELFPAY ==
[2023-03-15] VITALS (8 sets, daily range): BP systolic 115–127; BP diastolic 64–75; PULSE 76–87; RESP 18; O2SAT 99
== END 2023-03-15 16:17 | disposition home or self-care (01) ==
LOC: INF 07:28
PROVIDERS: PCP Internal Medicine Adolescent Medicine; Visit Provider Obstetrics & Gynecology
DX: O21.0 Mild hyperemesis gravidarum (principal); Z3A.18 18 weeks gestation of pregnancy
CPT/HCPCS: 96365; 96366; 96375; J2405

== ENCOUNTER 2023-03-22 07:23 | Outpatient (CLI) | payer OTHER, SELFPAY ==
[2023-03-22 08:20] VITALS: BP 113/72; PULSE 99; RESP 18; O2SAT 98
[2023-03-22 10:20] VITALS: BP 126/78; PULSE 89; RESP 18
[2023-03-22 12:28] VITALS: BP 120/76; PULSE 88; RESP 18; O2SAT 99
== END 2023-03-22 12:28 | disposition home or self-care (01) ==
LOC: INF 07:23
PROVIDERS: PCP Internal Medicine Adolescent Medicine; Visit Provider Obstetrics & Gynecology
DX: O21.0 Mild hyperemesis gravidarum (principal); Z3A.19 19 weeks gestation of pregnancy; E86.0 Dehydration
CPT/HCPCS: 96365; 96366; 96375; J2405

== ENCOUNTER 2023-03-22 12:36 | Emergency (ER) | payer OTHER, SELFPAY ==
[2023-03-22 12:40] VITALS: BP 144/86; PULSE 84; RESP 20; TEMP 36.7; O2SAT 100; BMI 28.8
--- NOTE | 2023-03-22 12:48 | EXP.UTC ---
Discharge Plan Disposition Patient Disposition: Home, Self-Care Condition: Good Prescriptions Prescriptions: New fluticasone propionate [Flonase Allergy Relief] 50 mcg/actuation spray,suspension 1 - 2 spray intranasal DAILY Qty: 16 0RF Rx Instructions: administer into each nostril azithromycin [Zithromax Z-Junior] 250 mg tablet See Rx Instructions .ROUTE .COMPLEX 5 Days Qty: 6 0RF Rx Instructions: For 250 mg dose pack: take 500 mg today (day 1), then 250 mg for 4 days (days 2-5) No Action ondansetron 4 mg tablet,disintegrating 4 mg PO Q8H PRN (Reason: nausea and vomiting) Qty: 30 2RF magnesium oxide 400 mg (241.3 mg magnesium) tablet 800 mg PO BID pantoprazole [Protonix] 40 mg tablet,delayed release (DR/EC) 40 mg PO DAILY Referrals Follow up/Referrals: Julio Schmitz MD [Primary Care Provider] - See instructions Activity Restrictions/Add. Instructions Additional Instructions/Restrictions: *Monitor Temp, Over the counter Motrin or Tylenol as directed/as needed Tylenol every 4 hours and Motrin every 6 hours (as long as your family doctor has told you that you can take it) for fever or pain. and straight to ER if unable to lower temp less than 101.0 after medication given *Warm salt water gargles may help to soothe the throat *Throat Lozenges? *Warm fluids like tea with honey may help to soothe the throat? *Sleep elevated *Humidifier/Vaporizer *Flonase 2 sprays in each nostril daily but be aware that it may take 2-3 days before you notice improvement Take medication as prescribed Follow up IMMEDIATELY for new or worsening symptoms or no Noticeable improvement over the next 48-72 hours. 911 for difficulty breathing or swallowing Clinical Impressions Clinical Impression: Sinusitis Qualifiers: Sinusitis location: unspecified location Chronicity: unspecified Qualified Code(s): J32.9 - Chronic sinusitis, unspecified Instructions Patient Instructions: DI for Sinusitis, Sinusitis Discharge ED Provider: Melissa Barros [facility] General Stated complaint: runny nose, cough, bilateral ear pain Time Seen by Provider: 03/22/23 12:49 History of Present Illness Provider Complaint: Patient states that she 19wks OB States that she has been having sinus pain and pressure, pressure behind her eyes and bilateral ear pain and pressure States that she wasnt sure if there was anything that she can take States that today she wasnt feeling any better so she came in to get checked thinking she may have a sinus infection or ear infections that hasw got worse over the last couple of days Related Data Home Medications Medication Instructions Recorded Confirmed magnesium oxide 400 mg (241.3 mg 800 mg PO BID Supplement 03/08/23 03/22/23 magnesium) tablet pantoprazole 40 mg tablet,delayed 40 mg PO DAILY GERD 03/22/23 03/22/23 release (Protonix) Previous Rx's Medication Instructions Recorded ondansetron 4 mg disintegrating 4 mg PO Q8H PRN nausea and 02/25/23 tablet vomiting #30 tabs azithromycin 250 mg tablet See Rx Instructions PO .COMPLEX 5 03/22/23 (Zithromax Z-Junior) days #6 tabs fluticasone propionate 50 1 - 2 spray intranasal DAILY #16 03/22/23 mcg/actuation nasal grams spray,suspension (Flonase Allergy Relief) Allergies Allergy/AdvReac Type Severity Reaction Status Date / Time Penicillins Allergy Severe Anaphylaxis Verified 03/19/23 08:04 povidone-iodine AdvReac Mild Itching Verified 03/19/23 08:04 [From Betadine] soap [From Betadine] AdvReac Mild Itching Verified 03/19/23 08:04 PFS PFS Disclaimer: The information contained in this section may have been updated after the patient was seen, as this information can be updated by other users. Medical History Endometritis GBS bacteriuria in Headache in , antepartum History of ankle fracture
[2023-03-22 12:51] VITALS: BP 144/86; PULSE 84; RESP 20; TEMP 36.7; O2SAT 100
== END 2023-03-22 13:10 | disposition home or self-care (01) ==
PROVIDERS: Emergency Provider Nurse Practitioner; PCP Internal Medicine Adolescent Medicine
DX: O26.892 Other specified pregnancy related conditions, second trimester (principal); O99.512 Diseases of the respiratory system complicating pregnancy, second trimester; J01.90 Acute sinusitis, unspecified; Z3A.19 19 weeks gestation of pregnancy
CPT/HCPCS: 99212; 99214; G0463

== ENCOUNTER → 2023-03-25 12:27 | Outpatient (CLI) | payer OTHER, SELFPAY ==
--- NOTE | 2023-03-25 12:27 | US_ITS ---
PROCEDURE: US OB /MATERNAL DETAIL CLINICAL INDICATION: 20 week anatomy scan COMPARISON: US US OB >= 14 WEEKS FETUS from 02/12/2023 FINDINGS: Transabdominal sonographic images of the uterus were obtained. From her established due date she is 19 weeks 6 days. Single viable intrauterine gestation. Breech then shifted to vertex position. Placenta: Anteriorplacenta grade 1. There is average amount fluid. The cervix appears satisfactory. Closed and measuring 3.3 cm in length. Complete survey performed and was unremarkable on the submitted images as in PACS. No discrete anomalies identified on survey imaging by technologist. Active fetus. Three-vessel cord with satisfactory umbilical cord insertion. 4- chamber heart noted. [place], LVOT, RVOT, aortic arch appear normal. Survey of brain & ventricles Unremarkable. Choroid plexus, cerebellum, thalamus, cisterna magna appear normal. Face and neck survey unremarkable. Profile, nose and lips and nasion appear normal. Diaphragm and chest views unremarkable. Abdomen: Both kidneys noted and unremarkable. Right kidney has mild renal dilation. Stomach and bladder noted and satisfactory. Spine: Survey of the spine satisfactory with no anomalies identified nor imaged. Upper, thoracic and lower spine appear normal. Both arms and legs noted. Amniotic Fluid: Adequate. Measurements: Average ultrasound age 20weeks 3days. Estimated due date by ultrasound age 0108/09/2023. Estimated weight 349g BPD = 20weeks 4days HC = 20weeks 2days AC = 20weeks 3days FL = 20weeks 3days Growth Percentile= 75 Heart Rate = 146bpm Cerebellum = 19weeks 3days Humerus = 20weeks 4days HC/AC is 1.17 CI is FL/BPD is 0.7 FL/AC is 0.22 IMPRESSION: 1. Viable fetus in the cephalic presentation with an anterior placenta grade 1. 2. The fluid is within normal limits. 3. Anatomical scan appears normal. 4. There is mild renal pyelectasis of right kidney. Suggest follow-up. Dictated by: Benjamin Preston MD 03/25/2023 15:23 Benjamin Preston MD in [place] 03/25/2023 15:23
== END ==
PROVIDERS: PCP Internal Medicine Adolescent Medicine; Visit Provider Obstetrics & Gynecology
DX: Z34.92 Encounter for supervision of normal pregnancy, unspecified, second trimester (principal); Z3A.20 20 weeks gestation of pregnancy
CPT/HCPCS: 76811

== ENCOUNTER → 2023-04-27 15:13 | Outpatient (CLI) | payer OTHER, SELFPAY ==
[2023-04-27 15:45] LABS: Basophils # 0.1 K/mm3 (0-0.2); Basophils % 0.3 % (0.1-2.0); Eosinophils # 0.1 K/mm3 (0.0-0.4); Eosinophils % 0.8 % (0.1-12.0); Hematocrit 37.3 % (37.0-47.0); Hemoglobin 12.3 g/dL (12.2-16.2); Lymphocytes # 2.1 K/mm3 (0.7-4.5); Lymphocytes % 15.8 % (10-50); Mean Corpuscular HGB Conc 32.8 g/dL (31.8-35.4); Mean Corpuscular Hemoglobin 28.1 pg (27.0-31.2); Mean Corpuscular Volume 85.5 fl (81-99); Mean Platelet Volume 7.8 fl (7.4-10.4); Monocytes # 0.5 K/mm3 (0.1-1.0); Monocytes % 3.7 % (1.7-9.3); Neutrophils # 10.7 K/mm3 (1.8-7.8); Neutrophils % 79.4 % (37.0-80.0); Platelet Count 385 K/mm3 (142-424); Red Blood Count 4.37 M/mm3 (4.20-5.40); Red Cell Distribution Width 13.9 % (11.5-17.5); White Blood Count 13.5 K/mm3 (4.8-10.8)
[2023-04-27 15:59] LABS: Glucose,Fasting 82 mg/dl (74-100)
[2023-04-27 17:25] LABS: Glucose 1 Hour 129 mg/dL (74-100)
== END ==
PROVIDERS: PCP Internal Medicine Adolescent Medicine; Visit Provider Obstetrics & Gynecology
DX: Z34.92 Encounter for supervision of normal pregnancy, unspecified, second trimester (principal); Z3A.24 24 weeks gestation of pregnancy
CPT/HCPCS: 36415; 82951; 85025; 96372

== ENCOUNTER 2023-04-30 09:22 | Outpatient (CLI) | payer OTHER, SELFPAY ==
[2023-04-30 09:24] VITALS: BMI 29.9
[2023-04-30 09:45] VITALS: BP 123/83; PULSE 116; RESP 19; TEMP 36.9; O2SAT 97; BMI 29.9
[2023-04-30 09:47] LABS: Microscopic, Urine URINE MICROSCOPIC (MICROSCOPIC)
[2023-04-30 09:49] LABS: Appearance,Urine CLOUDY (Clear); Bilirubin,Urine Negative (Negative); Blood, Urine TRACE-I (Negative); Color,Urine YELLOW (Yellow); Glucose,Urine (UA) Negative (Negative); Ketones,Urine Negative (Negative); Leukocyte Esterase,Urine 2+ (Negative); Nitrate,Urine Negative (Negative); Protein,Urine TRACE (Negative); Specific Gravity, Urine >= 1.030 (1.005-1.030); Urobilinogen,Urine 0.2 EU/dl (0.2)
[2023-04-30 10:00] LABS: Barbiturates Screen,Urine Negative ng/ml (<200); Benzodiazepines Screen,Urine Negative ng/ml (<200)
[2023-04-30 10:01] LABS: Amphetamine/Metha Screen,Urine Negative ng/ml (<1000)
[2023-04-30 10:02] LABS: Cannabinoid Screen,Urine Negative ng/ml (<50); Methadone Screen,Urine Negative ng/ml (<300)
[2023-04-30 10:03] LABS: Cocaine Screen,Urine Negative ng/ml (<300); Opiate Screen,Urine Negative ng/ml (<300)
[2023-04-30 10:04] LABS: Phencyclidine Screen,Urine Negative ng/ml (<25)
[2023-04-30 10:08] LABS: Bacteria,Urine 2+ /lpf; Mucus,Urine Trace /lpf; WBC,Urine 20-50 #/hpf (0-3)
== END 2023-04-30 10:30 | disposition home or self-care (01) ==
LOC: OBOUT 09:23 → OB 09:24
PROVIDERS: PCP Internal Medicine Adolescent Medicine; Visit Provider Obstetrics & Gynecology
DX: O26.892 Other specified pregnancy related conditions, second trimester (principal); Z3A.25 25 weeks gestation of pregnancy; R07.81 Pleurodynia
CPT/HCPCS: 80305; 81001; 87086; 87186; G0463

== ENCOUNTER → 2023-05-17 12:57 | Outpatient (CLI) | payer OTHER, SELFPAY | PROVIDERS: Visit Provider Obstetrics & Gynecology | DX: Z34.92 Encounter for supervision of normal pregnancy, unspecified, second trimester (principal); Z3A.27 27 weeks gestation of pregnancy | CPT/HCPCS: 87086 ==

== ENCOUNTER 2023-05-18 16:50 | Emergency (ER) | payer OTHER, SELFPAY ==
[2023-05-18 16:55] VITALS: BP 136/89; PULSE 103; RESP 19; TEMP 36.8; O2SAT 99; BMI 31.0
--- NOTE | 2023-05-18 17:21 | EXP.UTC ---
Discharge Plan Disposition Patient Disposition: Home, Self-Care Condition: Good Prescriptions Prescriptions: No Action ondansetron 4 mg tablet,disintegrating 4 mg PO Q8H PRN (Reason: nausea and vomiting) Qty: 30 2RF pantoprazole [Protonix] 40 mg tablet,delayed release (DR/EC) 40 mg PO DAILY Referrals Follow up/Referrals: Julio Schmitz MD [Primary Care Provider] - See instructions Activity Restrictions/Add. Instructions Additional Instructions/Restrictions: *Monitor Temp, Over the counter Motrin or Tylenol as directed/as needed Tylenol every 4 hours and Motrin every 6 hours (as long as your family doctor has told you that you can take it) for fever or pain. and straight to ER if unable to lower temp less than 101.0 after medication given *Warm salt water gargles may help to soothe the throat *Throat Lozenges? *Warm fluids like tea with honey may help to soothe the throat? *Sleep elevated *Humidifier/Vaporizer Your throat swab was sent for culture. Those results are typically sent to your primary care. Be sure to follow up in 2-3 days with your family doctor/primary care physician if no improvement so they can review those result and treat if necessary. If you don?t have a primary care doctor, I recommend you get one but in the mean time, you will have to return to a walk in clinic Follow up IMMEDIATELY for new or worsening symptoms or no Noticeable improvement over the next 48-72 hours. 911 for difficulty breathing or swallowing You were tested for today for COVID19 your test result should be back in the next 24 hours You may check for your results on the [facility] My Health Portal if your COVID test is positive you will need to Quarantine for 5 days Clinical Impressions Clinical Impression: Viral syndrome Instructions Patient Instructions: DI for Viral Syndrome Discharge ED Provider: Melissa Barros [facility] HPI General Stated complaint: mansoor ALFARO exposed to flu Mode of Arrival: Ambulatory Source of Information: Patient Limitations: No Limitations Time Seen by Provider: 05/18/23 17:22 Description of Symptoms (Recalled from Triage Doc. by RN): PATIENT C/O HEADACHE, BODY ACHES, CONGESTION, EAR PAIN SINCE THIS MORNING. RECENTLY EXPOSED TO FLU HEENT Symptoms (Recalled from RN notes): Yes Resp Symptoms (Recalled from RN notes): No Skin Symptoms (Recalled from RN notes): No MS Symptoms (Recalled from RN notes): No Functional Status (Recalled from RN notes): WNL History of Present Illness Provider Complaint: Patient 27wks OB states that she was recenlty around someone that has the flu States that she woke up this morning not feeling well and as the day went on she felt worse States that she is having headache, body aches, chills, ear pain and pressure and nasal congestion States that this evening she was still not feeling well so she came in worried she may have the flu Related Data Home Medications Medication Instructions Recorded Confirmed pantoprazole 40 mg tablet,delayed 40 mg PO DAILY GERD 03/22/23 05/17/23 release (Protonix) Previous Rx's Medication Instructions Recorded ondansetron 4 mg disintegrating 4 mg PO Q8H PRN nausea and 02/25/23 tablet vomiting #30 tabs Allergies Allergy/AdvReac Type Severity Reaction Status Date / Time Penicillins Allergy Severe Anaphylaxis Verified 05/17/23 13:14 povidone-iodine AdvReac Mild Itching Verified 05/17/23 13:14 [From Betadine] soap [From Betadine] AdvReac Mild Itching Verified 05/17/23 13:14 Worker's Comp Is this a Worker's Comp case?: [facility] Disclaimer: The information contained in this section may have been updated after the patient was seen, as this information can be updated by other users. Medical History Endometritis GBS bacteriuria in early , will need GBS prophylaxis regardless of RV swab Headache in , antepar
[2023-05-18 17:24] LABS: UTC Strep Screen (Rapid) Negative (Negative)
[2023-05-18 17:24] LABS: UTC Influenza A Antigen Negative (Negative); UTC Influenza B Antigen Negative (Negative)
[2023-05-18 17:42] VITALS: BP 136/89; PULSE 103; RESP 19; TEMP 36.8; O2SAT 99
[2023-05-18 18:51] LABS: Adenovirus,PCR Not Detected (NotDetected); Bordetella Pertussis Not Detected (NotDetected); Chlamydophila Pneumoniae, PCR Not Detected (NotDetected); Coronavirus 19, PCR Not Detected (NotDetected); Coronavirus 229E Not Detected (NotDetected); Coronavirus NL63 Not Detected (NotDetected); Coronavirus OC43 Not Detected (NotDetected); Coronovirus HKU1,PCR Not Detected (NotDetected); Human Metapneumovirus Not Detected (NotDetected); Influenza A, PCR Not Detected (NotDetected); Influenza AH1, 2009 Not Detected (NotDetected); Influenza AH1, PCR Not Detected (NotDetected); Influenza AH3,PCR Not Detected (NotDetected); Influenza B, PCR Not Detected (NotDetected); Mycoplasma Pneumoniae, PCR Not Detected (NotDetected); Parainfluenza 1, PCR Not Detected (NotDetected); Parainfluenza 2, PCR Not Detected (NotDetected); Parainfluenza 3, PCR Not Detected (NotDetected); Parainfluenza 4, PCR Not Detected (NotDetected); Respiratory Syncytial Virus Not Detected (NotDetected); Rhinovirus/Enterovirus Not Detected (NotDetected)
== END 2023-05-18 17:56 | disposition home or self-care (01) ==
PROVIDERS: Emergency Provider Nurse Practitioner; PCP Internal Medicine Adolescent Medicine
DX: O98.513 Other viral diseases complicating pregnancy, third trimester (principal); R51.9 Headache, unspecified; R09.81 Nasal congestion; H92.03 Otalgia, bilateral; M79.18 Myalgia, other site; Z3A.27 27 weeks gestation of pregnancy; O26.893 Other specified pregnancy related conditions, third trimester
CPT/HCPCS: 87581; 87632; 87635; 87798; 87804; 87880; 99212; 99213; G0463

== ENCOUNTER 2023-05-20 22:23 | Outpatient (CLI) | payer OTHER, SELFPAY ==
[2023-05-20 22:33] VITALS: BMI 33.3
[2023-05-20 22:41] VITALS: BP 132/86; PULSE 127; RESP 17; TEMP 36.8; O2SAT 96
[2023-05-20 22:45] VITALS: BP 131/92; PULSE 122; O2SAT 95
[2023-05-20 22:46] LABS: Microscopic, Urine URINE MICROSCOPIC (MICROSCOPIC)
[2023-05-20 22:48] VITALS: BMI 33.3
[2023-05-20 22:57] LABS: Appearance,Urine SL CLOUDY (Clear); Bilirubin,Urine Negative (Negative); Blood, Urine Negative (Negative); Color,Urine YELLOW (Yellow); Glucose,Urine (UA) 2+ (Negative); Ketones,Urine Negative (Negative); Leukocyte Esterase,Urine 2+ (Negative); Nitrate,Urine Negative (Negative); Protein,Urine Negative (Negative); Urobilinogen,Urine 0.2 EU/dl (0.2)
[2023-05-20 23:00] VITALS: BP 127/83; PULSE 125; O2SAT 96
[2023-05-20 23:10] LABS: Barbiturates Screen,Urine Negative ng/ml (<200)
[2023-05-20 23:11] LABS: Benzodiazepines Screen,Urine Negative ng/ml (<200)
[2023-05-20 23:12] LABS: Amphetamine/Metha Screen,Urine Negative ng/ml (<1000); Cannabinoid Screen,Urine Negative ng/ml (<50)
[2023-05-20 23:13] LABS: Cocaine Screen,Urine Negative ng/ml (<300)
[2023-05-20 23:14] LABS: Methadone Screen,Urine Negative ng/ml (<300); Phencyclidine Screen,Urine Negative ng/ml (<25)
[2023-05-20 23:15] VITALS: BP 125/79; PULSE 113; O2SAT 96
[2023-05-20 23:15] LABS: Opiate Screen,Urine Negative ng/ml (<300)
[2023-05-20 23:30] VITALS: BP 128/89; PULSE 126; O2SAT 96
[2023-05-20 23:30] LABS: Bacteria,Urine Trace /lpf; RBC,Urine Occasional #/hpf (0-3); Squamous Epithelial Cell,Urine Occasional #/hpf (0-5)
[2023-05-20 23:45] VITALS: BP 119/78; PULSE 93; O2SAT 97
[2023-05-21] VITALS: BP 123/80; PULSE 94; O2SAT 95
[2023-05-21 00:15] VITALS: BP 122/82; PULSE 97; O2SAT 97
== END 2023-05-21 00:34 | disposition home or self-care (01) ==
LOC: OBOUT 22:24 → OB 22:25
PROVIDERS: PCP Internal Medicine Adolescent Medicine; Visit Provider Obstetrics & Gynecology
DX: O47.02 False labor before 37 completed weeks of gestation, second trimester (principal); Z3A.27 27 weeks gestation of pregnancy; M54.50 Low back pain, unspecified
CPT/HCPCS: 59025; 80305; 81001; 87086; 96365; G0463

== ENCOUNTER → 2023-05-25 09:02 | Outpatient (CLI) | payer OTHER, SELFPAY ==
[2023-05-25 09:35] LABS: Glucose,Fasting 94 mg/dl (74-100)
[2023-05-25 11:09] LABS: Glucose 1 Hour 158 mg/dL (74-100)
== END ==
PROVIDERS: PCP Internal Medicine Adolescent Medicine; Visit Provider Obstetrics & Gynecology
DX: Z34.92 Encounter for supervision of normal pregnancy, unspecified, second trimester (principal); Z3A.28 28 weeks gestation of pregnancy
CPT/HCPCS: 36415; 82951; 86870

== ENCOUNTER 2023-05-25 11:29 | Outpatient (CLI) | payer OTHER, SELFPAY ==
[2023-05-25 11:30] VITALS: BP 138/93; PULSE 117; RESP 18; TEMP 36.7; O2SAT 98
== END 2023-05-25 11:30 | disposition home or self-care (01) ==
LOC: INF 11:30
DX: O36.0120 Maternal care for anti-D [Rh] antibodies, second trimester, not applicable or unspecified (principal); Z3A.28 28 weeks gestation of pregnancy
CPT/HCPCS: 96372; J2790

== ENCOUNTER → 2023-05-29 07:48 | Outpatient (CLI) | payer OTHER, SELFPAY ==
[2023-05-29 08:31] LABS: Glucose,Fasting 94 mg/dl (74-100)
[2023-05-29 10:01] LABS: Glucose 1 Hour 175 mg/dL (74-100)
[2023-05-29 10:49] LABS: Glucose 2 Hour 156 mg/dL (74-100)
[2023-05-29 11:54] LABS: Glucose 3 Hour 122 mg/dL (74-100)
== END ==
PROVIDERS: PCP Internal Medicine Adolescent Medicine; Visit Provider Obstetrics & Gynecology
DX: Z34.93 Encounter for supervision of normal pregnancy, unspecified, third trimester (principal); Z3A.29 29 weeks gestation of pregnancy
CPT/HCPCS: 36415; 82951

== ENCOUNTER 2023-06-25 12:52 | Outpatient (CLI) | payer OTHER, SELFPAY ==
[2023-06-25 15:01] VITALS: BMI 33.5
[2023-06-25 15:02] VITALS: BP 126/70; PULSE 86; RESP 18; TEMP 36.8; O2SAT 98; BMI 33.5
== END 2023-06-25 14:19 | disposition home or self-care (01) ==
LOC: OBOUT 12:54 → OB 12:55
PROVIDERS: PCP Internal Medicine Adolescent Medicine; Visit Provider Obstetrics & Gynecology
DX: O26.893 Other specified pregnancy related conditions, third trimester (principal); Z3A.33 33 weeks gestation of pregnancy
CPT/HCPCS: 59025; G0463

== ENCOUNTER 2023-06-29 11:20 | Outpatient (CLI) | payer OTHER, SELFPAY ==
[2023-06-29 13:25] VITALS: BP 118/74; PULSE 84; RESP 18; TEMP 36.6; O2SAT 95; BMI 32.9
== END 2023-06-29 13:35 | disposition home or self-care (01) ==
LOC: OBOUT 11:22 → OB 11:22
PROVIDERS: PCP Internal Medicine Adolescent Medicine; Visit Provider Nurse Practitioner Obstetrics & Gynecology
DX: O26.893 Other specified pregnancy related conditions, third trimester (principal); R51.9 Headache, unspecified; R11.0 Nausea; Z3A.33 33 weeks gestation of pregnancy
CPT/HCPCS: 96365; G0463; J0131; J2405

== ENCOUNTER 2023-06-30 19:03 | Outpatient (CLI) | payer OTHER, SELFPAY ==
[2023-06-30 19:12] VITALS: BMI 32.9
[2023-06-30 19:22] VITALS: BP 125/79; PULSE 105; RESP 18; TEMP 37.1; O2SAT 100; BMI 32.9
[2023-06-30 19:33] LABS: Microscopic, Urine URINE MICROSCOPIC (MICROSCOPIC)
[2023-06-30 19:35] LABS: Appearance,Urine CLEAR (Clear); Bilirubin,Urine Negative (Negative); Blood, Urine Negative (Negative); Color,Urine YELLOW (Yellow); Glucose,Urine (UA) Negative (Negative); Ketones,Urine Negative (Negative); Leukocyte Esterase,Urine 2+ (Negative); Nitrate,Urine Negative (Negative); Protein,Urine TRACE (Negative); Specific Gravity, Urine >= 1.030 (1.005-1.030); Urobilinogen,Urine 0.2 EU/dl (0.2)
[2023-06-30 19:48] LABS: Benzodiazepines Screen,Urine Negative ng/ml (<200)
[2023-06-30 19:49] LABS: Amphetamine/Metha Screen,Urine Negative ng/ml (<1000); Barbiturates Screen,Urine Negative ng/ml (<200)
[2023-06-30 19:50] LABS: Cannabinoid Screen,Urine Negative ng/ml (<50); Cocaine Screen,Urine Negative ng/ml (<300)
[2023-06-30 19:51] LABS: Methadone Screen,Urine Negative ng/ml (<300)
[2023-06-30 19:52] LABS: Opiate Screen,Urine Negative ng/ml (<300); Phencyclidine Screen,Urine Negative ng/ml (<25)
[2023-06-30 20:49] LABS: Squamous Epithelial Cell,Urine Occasional #/hpf (0-5)
== END 2023-06-30 21:15 | disposition home or self-care (01) ==
LOC: OBOUT 19:04 → OB 19:05
PROVIDERS: PCP Internal Medicine Adolescent Medicine; Visit Provider Obstetrics & Gynecology
DX: O26.893 Other specified pregnancy related conditions, third trimester (principal); Z3A.33 33 weeks gestation of pregnancy; R51.9 Headache, unspecified; R11.2 Nausea with vomiting, unspecified
CPT/HCPCS: 59025; 80305; 81001; 87086; 96365; 96367; G0463; J0131; J2405

== ENCOUNTER 2023-07-02 12:34 | Outpatient (CLI) | payer OTHER, SELFPAY ==
[2023-07-02 13:13] VITALS: BP 126/82; PULSE 84; RESP 18; TEMP 36.7; O2SAT 100; BMI 32.9
== END 2023-07-02 13:22 | disposition home or self-care (01) ==
LOC: OBOUT 12:35 → OB 12:37
PROVIDERS: PCP Internal Medicine Adolescent Medicine; Visit Provider Obstetrics & Gynecology
DX: O26.893 Other specified pregnancy related conditions, third trimester (principal); Z3A.34 34 weeks gestation of pregnancy
CPT/HCPCS: 59025; G0463

== ENCOUNTER 2023-07-09 12:55 | Outpatient (CLI) | payer OTHER, SELFPAY ==
[2023-07-09 13:20] VITALS: BMI 33.8
[2023-07-09 13:25] LABS: Microscopic, Urine URINE MICROSCOPIC (MICROSCOPIC)
[2023-07-09 13:30] LABS: Appearance,Urine CLEAR (Clear); Bilirubin,Urine Negative (Negative); Blood, Urine TRACE-I (Negative); Color,Urine YELLOW (Yellow); Glucose,Urine (UA) Negative (Negative); Ketones,Urine Negative (Negative); Leukocyte Esterase,Urine 2+ (Negative); Nitrate,Urine Negative (Negative); PH,Urine 7.5 (5.0-8.5); Protein,Urine 1+ (Negative)
[2023-07-09 13:38] VITALS: BP 124/83; PULSE 81; RESP 18; TEMP 36.8; O2SAT 98; BMI 33.8
[2023-07-09 13:41] LABS: Barbiturates Screen,Urine Negative ng/ml (<200)
[2023-07-09 13:42] LABS: Benzodiazepines Screen,Urine Negative ng/ml (<200)
[2023-07-09 13:43] LABS: Amphetamine/Metha Screen,Urine Negative ng/ml (<1000); Cocaine Screen,Urine Negative ng/ml (<300)
[2023-07-09 13:44] LABS: Cannabinoid Screen,Urine Negative ng/ml (<50); Methadone Screen,Urine Negative ng/ml (<300)
[2023-07-09 13:45] LABS: Opiate Screen,Urine Negative ng/ml (<300)
[2023-07-09 13:46] LABS: Phencyclidine Screen,Urine Negative ng/ml (<25)
[2023-07-09 14:02] LABS: Bacteria,Urine 1+ /lpf
--- NOTE | 2023-07-09 14:07 | US_ITS ---
PROCEDURE: US OB BIOPHYSICAL PROFILE CLINICAL INDICATION: Non-Reactive NST COMPARISON: FINDINGS: Transabdominal sonographic images of the uterus were obtained. From her established due date she is 35weeks 0 days. The following parameters are obtained: Viable fetus in the cephalic presentation with an anterior placenta grade 2 heart rate: 158bpm bpm. Amniotic fluid index: 6.82cm MVP 3.2 cm Qualitative AFV: 2 breathing movements: 2 Gross body movements: 2 Tone: 2 Biophysical profile score: 8 No obvious anomalies evident.Kidneys, four-chamber heart, three-vessel cord appear normal. IMPRESSION: 1. Viable fetus in the cephalic presentation with an anterior placenta grade 2-3. 2. Fluid is within normal limits with an amniotic fluid index 6.8 cm. MVP is 3.2 cm. Subjectively the fluid looks low. 3. Biophysical profile is 8/8 with good breathing movement seen. Dictated by: Benjamin Preston MD 07/13/2023 13:04 Benjamin Preston MD in [place] 07/13/2023 13:04
== END 2023-07-09 14:45 | disposition home or self-care (01) ==
LOC: OBOUT 12:56 → OB 12:57
PROVIDERS: PCP Internal Medicine Adolescent Medicine; Visit Provider Obstetrics & Gynecology
DX: O26.893 Other specified pregnancy related conditions, third trimester (principal); Z3A.35 35 weeks gestation of pregnancy
CPT/HCPCS: 59025; 76819; 80305; 81001; 87086; G0463

== ENCOUNTER 2023-07-10 02:26 | Outpatient (CLI) | payer OTHER, SELFPAY ==
[2023-07-10 02:29] VITALS: BMI 33.8
[2023-07-10 02:50] VITALS: BP 125/87; PULSE 111; RESP 19; TEMP 36.7; O2SAT 99; BMI 33.8
[2023-07-10 02:54] LABS: Barbiturates Screen,Urine Negative ng/ml (<200); Benzodiazepines Screen,Urine Negative ng/ml (<200)
[2023-07-10 02:55] LABS: Amphetamine/Metha Screen,Urine Negative ng/ml (<1000); Cannabinoid Screen,Urine Negative ng/ml (<50)
[2023-07-10 02:56] LABS: Cocaine Screen,Urine Negative ng/ml (<300)
[2023-07-10 02:57] LABS: Methadone Screen,Urine Negative ng/ml (<300); Opiate Screen,Urine Negative ng/ml (<300)
[2023-07-10 02:58] LABS: Phencyclidine Screen,Urine Negative ng/ml (<25)
[2023-07-10 03:09] LABS: Fetal Membrane Rupture (Rapid) Negative (Negative)
[2023-07-10 05:30] VITALS: BP 145/91; PULSE 85; RESP 19; O2SAT 98
[2023-07-10 05:43] VITALS: BP 138/89; PULSE 77; RESP 19; O2SAT 98
== END 2023-07-10 05:59 | disposition home or self-care (01) ==
LOC: OBOUT 02:28 → OB 02:28
PROVIDERS: PCP Internal Medicine Adolescent Medicine; Visit Provider Obstetrics & Gynecology
DX: O47.03 False labor before 37 completed weeks of gestation, third trimester (principal); Z3A.35 35 weeks gestation of pregnancy
CPT/HCPCS: 59025; 80305; 84112; 96365; G0463

== ENCOUNTER → 2023-07-12 13:01 | Outpatient (CLI) | payer OTHER, SELFPAY ==
--- NOTE | 2023-07-12 13:02 | US_ITS ---
PROCEDURE: US OB BIOPHYSICAL PROFILE CLINICAL INDICATION: lga and JOSEY COMPARISON: FINDINGS: Transabdominal sonographic images of the uterus were obtained. From her established due date she is 35weeks 3days. The following parameters are obtained: Viable fetus in the cephalic presentation with an anterior placenta grade 2 Average ultrasound age is 36weeks 3days. Estimated due date by ultrasound is 08/06/2023. Estimated weight is 6lb 4oz, 2854 grams. heart rate: 152bpm bpm. BPD: 35weeks 5days OFD: 35weeks 5days HC: 36 weeks 0 days AC: 35 weeks 6 days FL: 36 weeks 3 days HC/AC: 1 Cephalic index: 0.83 FL/BPD: 0.77 FL/AC: 0.22 69 percentile Amniotic fluid index: 7.17cm, MVP 3.02 cm. Qualitative AFV: 2 breathing movements: 2 Gross body movements: 2 Tone: 2 Biophysical profile score: 8 No obvious anomalies evident.Kidneys, 4 chamber heart, three-vessel cord appear normal. IMPRESSION: 1. Viable fetus in the cephalic presentation with an anterior placenta grade 2. 2. The fluid is subjectively low with an amniotic fluid index of 7.17cm. MVP 3.02 cm. 3. Biophysical profile is 8/8 with good breathing movement seen. 4. There has been good growth with the fetus currently 69 percentile. Dictated by: Benjamin Preston MD 07/13/2023 13:37 Benjamin Preston MD in [place] 07/13/2023 13:37
== END ==
PROVIDERS: PCP Internal Medicine Adolescent Medicine; Visit Provider Obstetrics & Gynecology
DX: O36.63X0 Maternal care for excessive fetal growth, third trimester, not applicable or unspecified (principal); Z3A.35 35 weeks gestation of pregnancy
CPT/HCPCS: 76816; 76819

== ENCOUNTER 2023-07-16 06:12 | Outpatient (CLI) | payer OTHER, SELFPAY ==
[2023-07-16 06:16] VITALS: BMI 33.8
[2023-07-16 06:29] LABS: Appearance,Urine CLEAR (Clear); Bilirubin,Urine Negative (Negative); Blood, Urine TRACE-I (Negative); Color,Urine YELLOW (Yellow); Glucose,Urine (UA) Negative (Negative); Ketones,Urine Negative (Negative); Leukocyte Esterase,Urine 3+ (Negative); Microscopic, Urine URINE MICROSCOPIC (MICROSCOPIC); Nitrate,Urine Negative (Negative); PH,Urine 6.5 (5.0-8.5); Protein,Urine TRACE (Negative); Urobilinogen,Urine 0.2 EU/dl (0.2)
[2023-07-16 06:30] VITALS: BP 157/89; PULSE 71; RESP 17; TEMP 36.6; O2SAT 99
[2023-07-16 06:33] VITALS: BP 157/89; PULSE 71; RESP 17; TEMP 36.6; O2SAT 99; BMI 34.0
[2023-07-16 06:42] LABS: Bacteria,Urine 2+ /lpf; Benzodiazepines Screen,Urine Negative ng/ml (<200); RBC,Urine Occasional #/hpf (0-3)
[2023-07-16 06:43] LABS: Amphetamine/Metha Screen,Urine Negative ng/ml (<1000); Barbiturates Screen,Urine Negative ng/ml (<200)
[2023-07-16 06:44] LABS: Cannabinoid Screen,Urine Negative ng/ml (<50); Cocaine Screen,Urine Negative ng/ml (<300)
[2023-07-16 06:45] LABS: Methadone Screen,Urine Negative ng/ml (<300)
[2023-07-16 06:46] LABS: Opiate Screen,Urine Negative ng/ml (<300); Phencyclidine Screen,Urine Negative ng/ml (<25)
[2023-07-16 08:05] VITALS: BP 127/87; PULSE 88; O2SAT 98
== END 2023-07-16 08:08 | disposition home or self-care (01) ==
LOC: OBOUT 06:13 → OB 06:14
PROVIDERS: PCP Internal Medicine Adolescent Medicine; Referring Provider Obstetrics & Gynecology; Visit Provider Obstetrics & Gynecology
DX: O36.8130 Decreased fetal movements, third trimester, not applicable or unspecified (principal); Z3A.36 36 weeks gestation of pregnancy
CPT/HCPCS: 59025; 80305; 81001; 87086; G0463

== ENCOUNTER 2023-07-19 09:08 | Outpatient (CLI) | payer OTHER, SELFPAY ==
[2023-07-19 09:20] VITALS: BP 131/90; PULSE 90; RESP 18; TEMP 37.2; O2SAT 99; BMI 33.8
== END 2023-07-19 09:45 | disposition home or self-care (01) ==
LOC: OBOUT 09:10 → OB 09:11
PROVIDERS: PCP Internal Medicine Adolescent Medicine; Visit Provider Obstetrics & Gynecology
DX: Z34.93 Encounter for supervision of normal pregnancy, unspecified, third trimester (principal)
CPT/HCPCS: 59025; G0463

== ENCOUNTER 2023-07-22 15:18 | Inpatient (IN) | payer OTHER, SELFPAY ==
[2023-07-22 14:48] VITALS: BMI 34.0
[2023-07-22 15:26] LABS: Microscopic, Urine URINE MICROSCOPIC (MICROSCOPIC)
[2023-07-22 15:30] LABS: Basophils % 0.4 % (0.1-2.0); Eosinophils % 0.3 % (0.1-12.0); Hemoglobin 11.1 g/dL (12.2-16.2); Lymphocytes # 1.5 K/mm3 (0.7-4.5); Lymphocytes % 18.4 % (10-50); Mean Corpuscular HGB Conc 34.7 g/dL (31.8-35.4); Mean Corpuscular Hemoglobin 27.1 pg (27.0-31.2); Monocytes # 0.3 K/mm3 (0.1-1.0); Neutrophils # 6.1 K/mm3 (1.8-7.8); Neutrophils % 76.8 % (37.0-80.0); Platelet Count 341 K/mm3 (142-424); Red Blood Count 4.11 M/mm3 (4.20-5.40)
[2023-07-22 15:31] LABS: Appearance,Urine SL CLOUDY (Clear); Blood, Urine Negative (Negative); Color,Urine DARK YELLOW (Yellow); Glucose,Urine (UA) TRACE (Negative); Ketones,Urine TRACE (Negative); Leukocyte Esterase,Urine 2+ (Negative); Nitrate,Urine Negative (Negative); Protein,Urine 2+ (Negative); Specific Gravity, Urine >= 1.030 (1.005-1.030)
[2023-07-22 15:57] LABS: Bilirubin,Urine 1+ (Negative)
[2023-07-22 16:03] LABS: Bacteria,Urine 1+ /lpf
[2023-07-22 16:10] LABS: Barbiturates Screen,Urine Negative ng/ml (<200)
[2023-07-22 16:11] LABS: Benzodiazepines Screen,Urine Negative ng/ml (<200)
[2023-07-22 16:12] LABS: Amphetamine/Metha Screen,Urine Negative ng/ml (<1000); Methadone Screen,Urine Negative ng/ml (<300)
[2023-07-22 16:13] LABS: Cannabinoid Screen,Urine Negative ng/ml (<50)
[2023-07-22 16:14] LABS: Cocaine Screen,Urine Negative ng/ml (<300); Phencyclidine Screen,Urine Negative ng/ml (<25)
[2023-07-22 16:15] LABS: Opiate Screen,Urine Negative ng/ml (<300)
[2023-07-22 18:21] VITALS: BP 127/76; PULSE 94; RESP 18; TEMP 36.7; O2SAT 99; BMI 34.0
--- NOTE | 2023-07-22 18:37 | EXP.OB.APHP ---
OB - H&P: HPI Antepartum History of Present Illness Chief complaint: Scheduled induction of labor History of present illness: Ms Alicia Hernandez is a 22 yo at 36w6d, by 7 week ultrasound, who presents to [facility] L[facility] for scheduled induction of labor secondary to gestational hypertension. She is taking Labetalol 200 mg BID. Baby is active. She has had good care. Ultrasound 07/12/23 demonstrated EFW 69 %ile, JOSEY 7.17 and BPP 8/8. History of Present Criteria for establishing EDC:: based on 1st trimester US only care: good care Ultrasounds: normal mid trimester US Obstetrical complications: gestational hypertension Medical complications: none Labs Blood type: O (-) negative Rubella: immune RPR/VDRL: nonreactive GBS status: positive (GBS bactiuria in early ) HBsAG: negative PFSH PFS Disclaimer: The information contained in this section may have been updated after the patient was seen, as this information can be updated by other users. Medical History (Updated 07/22/23 @ 18:52 by Jessica Bailey DO) 37 weeks gestation of Endometritis GBS bacteriuria Gestational hypertension Headache in , antepartum History of ankle fracture History of PCOS Hyperemesis affecting , antepartum Maternal obesity affecting , antepartum Rh negative state in antepartum period Surgical History H/O adenoidectomy History of ankle surgery Hx of tonsillectomy [place] teeth extracted Family History Other Diabetes Heart attack Hyperlipidemia Hypertension Thyroid disorder Social History Smoking Status: Never smoker second hand exposure: No alcohol intake: never substance use type: denies use current occupational status: unemployed Travel in the last 8 weeks: None current occupational exposures/hazards: No caffeine: Yes Review of Systems Review of Systems Review of systems:: pertinent systems reviewed and negative unless documented below Meds Home Medications and Allergies Home Medications Medication Instructions Recorded Confirmed Type ondansetron 4 mg disintegrating 4 mg PO Q8H PRN nausea and 02/25/23 07/22/23 Rx tablet vomiting #30 tabs labetalol 100 mg tablet 200 mg PO BID 07/22/23 07/22/23 History New Prescriptions to Start Prescriptions: Allergies Allergy/AdvReac Type Severity Reaction Status Date / Time Penicillins Allergy Severe Anaphylaxis Verified 07/20/23 10:45 povidone-iodine AdvReac Mild Itching Verified 07/20/23 10:45 [From Betadine] soap [From Betadine] AdvReac Mild Itching Verified 07/20/23 10:45 OB - H&P: Exam Physical Exam Vital signs: Temp Pulse Resp BP Pulse Ox O2 Del Method 98.1 F 94 H 18 127/76 99 Room Air 07/22/23 18:21 07/22/23 18:21 07/22/23 18:21 07/22/23 18:21 07/22/23 18:21 07/22/23 18:21 Constitutional no acute distress and cooperative Routine HEENT Exam Head: Present normocephalic and atraumatic Eye: Absent conjunctivae pink ENT: Present mucous membranes moist Routine Neck Exam Present full ROM Routine Respiratory Exam Present CTA bilaterally and normal respiratory effort Routine Cardiovascular Exam Present RRR Routine Abdominal Exam Present soft (Gravid); Absent tenderness Routine Rectal Exam Patient deferred: visual exam Routine Exam Patient deferred: external exam Routine Extremities Exam Present full ROM and calf tenderness; Absent edema Routine Neurological Exam Present alert, oriented X3 and moving all extremities Routine Psychiatric Exam Present normal affect and cooperative Detailed Labor and Delivery Exam Dilation (cm): 1 Effacement (%): 50 station: -3 Consistency: medium Baseline heart rate: 130 monitor accelerations: Present monitor decelerations: None
[2023-07-22 20:00] VITALS: BP 162/90; PULSE 85; RESP 17; TEMP 36.6; O2SAT 99
--- NOTE | 2023-07-23 02:15 | EXP.ANES.CKL ---
[facility] Disclaimer: The information contained in this section may have been updated after the patient was seen, as this information can be updated by other users. Medical History 37 weeks gestation of Endometritis GBS bacteriuria Gestational hypertension Headache in , antepartum History of ankle fracture History of PCOS Hyperemesis affecting , antepartum Maternal obesity affecting , antepartum Rh negative state in antepartum period Surgical History H/O adenoidectomy History of ankle surgery Hx of tonsillectomy [place] teeth extracted Family History Other Diabetes Heart attack Hyperlipidemia Hypertension Thyroid disorder Social History (Updated 07/22/23 @ 19:42 by Jay Jay Corley RN) Smoking Status: Never smoker second hand exposure: No alcohol intake: never substance use type: denies use current occupational status: unemployed Travel in the last 8 weeks: None current occupational exposures/hazards: No caffeine: Yes [facility] Anesthesia Checklist Patient Identification Patient Identification: Verbal (Name & ) Structural Data Admitted From: Inpatient Planned Operative Procedure/s: labor epidural Consent for Planned Operative Procedure(s) Verified: Yes Additional verifications Anesthesia Reactions: No Hx Blood Transfusions: No Blood Transfusion Reaction: No Airway Assessment Mallampati Score:: Class I C-Spine Mobility Assessed: Yes TMJ Mobility Assessed: Yes Dentition: Good Dentition Neurological Assessment Level of Consciousness: Awake, Alert and Appropriate Anesthesia Plan Anesthesia Risk discussed: Yes Anesthesia Plan: Patient unable to respond/answer ASA Class: II Anesthesia Type: Epidural
--- NOTE | 2023-07-23 05:52 | EXP.DN ---
Delivery Note Delivery Date:: 07/23/23 Delivery Time:: 05:07 Anesthesia Type: Epidural Was labor medically induced?: Yes Induction method: per misoprostol protocol Gestational age (weeks): 37 Infant delivered prior to 39 weeks?: Yes Justification for early elective delivery:: Gestational Hypertension Gender: Female at 1 minute: 6 at 5 minutes: 8 LAC or MLE?: LAC Delivery Procedure:: Alicia received 2 doses of Cytotec (no Pitocin) for induction of labor. She progressed to complete with epidural. Pushed for approximately 21 minutes. Head delivered spontaneously over intact perineum in OA position. No nuchal cord. Anterior shoulder delivered with gentle downward pressure. Posterior shoulder and remainder of body delivered spontaneously. Baby placed on maternal abdomen, mouth and nares bulb suctioned, warmed/dried and stimulated. Delayed cord clamping was performed for 60 seconds. Cord was clamped and cut by father of baby. Cord blood was obtained. Placenta delivered spontaneously and intact. Placenta will be sent to pathology for review. Second degree perineal laceration and left labial laceration repaired with 3-0 Vicryl. Hemostasis noted. Mom and baby were skin to skin and doing well after delivery. Live female baby (baby's name is Razia) APGARs 6 (1 min), 8 (5 min) EBL 300 mL Laceration:: labial Placental Delivery Description: Spontaneous
--- NOTE | 2023-07-23 07:29 | P.CONPHA_ITS ---
Pharmacy Intervention Comments: MEDICATION RECONCILIATION COMPLETED ON PATIENT USING EXTERNAL FILL HISTORY FROM PHARMACY AND LIST FROM SR. DIRECTOR PRODUCT MANAGEMENT OFFICE. -KAMLA MEDINAD
--- NOTE | 2023-07-23 07:29 | HMH.PHAINT1 ---
Pharmacy Intervention Comments: MEDICATION RECONCILIATION COMPLETED ON PATIENT USING EXTERNAL FILL HISTORY FROM PHARMACY AND LIST FROM DANDY OPERATOR OFFICE. -KAMLA MEDINAD
[2023-07-23 20:20] VITALS: BP 137/67; PULSE 78; RESP 18; TEMP 36.9; O2SAT 98
[2023-07-24 00:03] VITALS: BP 127/73; PULSE 87; RESP 17; TEMP 37.1
[2023-07-24 04:09] VITALS: BP 139/88; PULSE 90; RESP 17; TEMP 36.9; O2SAT 99
[2023-07-24 07:11] LABS: Hematocrit 28.4 % (37.0-47.0); Hemoglobin 9.7 g/dL (12.2-16.2)
--- NOTE | 2023-07-24 13:56 | EXP.PN ---
Subjective *Date: 07/25/23 *Time: 09:27 Interval history: Alicia Hernandez is a 22-year-old G1, P1 day #1 from a normal spontaneous vaginal delivery at 37 weeks and 0 days gestation. was complicated by gestational hypertension. Routine delivery. Patient reports that she is having some back pain and abdominal cramping. Patient reports that the ibuprofen and Tylenol is slightly relieving it. Patient reports that her appetite is slowly returning and she is tolerating p.o. without nausea or vomiting. Reports her lochia is scant. She is breast-feeding/ pumping for her female . Ambulating, voiding difficulty or dysuria. Denies headaches, vision changes, right upper quadrant pain, chest pain, shortness of breath or pain in her legs. No further complaints at this time. Exam Data for Last 24 hours Vital signs and Labs for Last 24 Hours: Temp Pulse Resp BP Pulse Ox O2 Del Method 98.5 F 90 17 139/88 99 Room Air 07/24/23 04:09 07/24/23 04:09 07/24/23 04:09 07/24/23 04:09 07/24/23 04:09 07/24/23 04:09 Laboratory Results - last 24 hr 07/24/23 06:47: Hgb 9.7 L, Hct 28.4 L, Screen TNP, Baby's Rh Status Negative, Rhogam Infusion TNP I & O for Last 24 hours: Intake & Output 07/21/23 07/22/23 07/23/23 07/24/23 23:59 23:59 23:59 23:59 Weight 186 lb Narrative: General: patient is alert oriented in no acute distress and responds appropriately to questions. Appears to be in minimal pain. Sitting up in the chair and doing well. She had several visitors at the time of my visit HEENT: NCAT, EOMI, moist mucous membranes, neck supple with full ROM Cardiovascular: RRR +S1/S2, no murmurs or rubs Pulmonary: Clear to auscultation bilaterally, nonlabored breathing, symmetric chest rise Abdominal: Fundus below the umbilicus, firm, and tenderness appropriate for the period. Extremities: trace edema, no tenderness or cyanosis noted Skin: Normal turgor, intact, warm. Negative for erythema, pallor, petechia, or lesions Neurologic: Negative for sensory or motor deficit Psychiatric: Normal affect, normal thought process, good judgment and insight, no depression or anxious mood appreciated. Assessment and Plan *Assessment and plan (1) 37 weeks gestation of : Status: Acute Category: Medical Code(s): Z3A.37 - 37 weeks gestation of (2) Gestational hypertension: Status: Acute Qualifiers: Trimester: third trimester Qualified Code(s): O13.3 - Gestational [-induced] hypertension without significant proteinuria, third trimester Category: Medical Code(s): O13.9 - Gestational [-induced] hypertension without significant proteinuria, unspecified trimester (3) (normal spontaneous vaginal delivery): Status: Acute Category: Medical Code(s): O80 - Encounter for full-term uncomplicated delivery (4) Anemia of mother in , condition: Status: Acute Category: Medical Code(s): O90.81 - Anemia of the puerperium (5) Anemia: Status: Acute Qualifiers: Anemia type: iron deficiency Iron deficiency anemia type: inadequate dietary iron intake Qualified Code(s): D50.8 - Other iron deficiency anemias Category: Medical Code(s): D64.9 - Anemia, unspecified Plan # -PPD#1 s/p -second degree perineal lac. -Doing well. VSS. Serial lochia and fundal checks. -Continue with perineal ice packs for discomfort -O neg with Anti-D antibody. Infant is Rh negative. no Rho indicated -, female -Contraception: undecided #Anemia -Hemoglobin: 11.1--> 9.7 - asymptomatic anemia noted. Vitals stable. Continue monitoring. DC with Fe -Microcytic MCV, likely secondary to chronic iron deficiency. #Gestational Hypertension -BP this mornin/73 and 139/88. -Slightly elevated. No severe range BP. -Reflexe
[2023-07-24 20:26] VITALS: BP 166/97
[2023-07-24 20:41] VITALS: BP 163/97
[2023-07-24 21:23] VITALS: BP 150/86
[2023-07-24 21:37] LABS: Basophils # 0.1 K/mm3 (0-0.2); Basophils % 0.3 % (0.1-2.0); Eosinophils # 0.2 K/mm3 (0.0-0.4); Eosinophils % 1.5 % (0.1-12.0); Hematocrit 29.6 % (37.0-47.0); Lymphocytes # 2.2 K/mm3 (0.7-4.5); Lymphocytes % 16.2 % (10-50); Mean Corpuscular HGB Conc 33.8 g/dL (31.8-35.4); Mean Corpuscular Hemoglobin 27.1 pg (27.0-31.2); Mean Platelet Volume 8.9 fl (7.4-10.4); Monocytes # 0.5 K/mm3 (0.1-1.0); Monocytes % 3.7 % (1.7-9.3); Neutrophils # 10.6 K/mm3 (1.8-7.8); Neutrophils % 78.3 % (37.0-80.0); Platelet Count 358 K/mm3 (142-424); Red Blood Count 3.69 M/mm3 (4.20-5.40); Red Cell Distribution Width 13.9 % (11.5-17.5); White Blood Count 13.5 K/mm3 (4.8-10.8)
[2023-07-24 21:41] LABS: Chloride 108 mmol/L (98-107); Sodium 135 mmol/L (136-145)
[2023-07-24 21:42] LABS: Potassium 3.9 mmoL/L (3.5-5.1)
[2023-07-24 21:44] LABS: Alanine Aminotransferase 23 U/L (12-78); Albumin Level 3.2 g/dl (3.5-5.0); Albumin/Globulin Ratio 1.1 (1.1-1.8); Alkaline Phosphatase 127 U/L (38-126); Anion Gap 7.9 mEq/L (5-15); Aspartate Amino Transferase 29 U/L (14-36); Bilirubin,Total 0.4 mg/dl (0.2-1.3); Blood Urea Nitrogen 7 mg/dl (7-17); Carbon Dioxide 23 mmol/L (22.0-30.0); Creatinine Clearance Estimated 169 mL/min (50-200); Estimated Glomerular Filt Rate 106 ml/min (>60); GFR (African American) 128 ML/MIN (>60); Globulin 2.9 g/dL (1.3-3.2); Total Protein,Serum 6.1 g/dl (6.3-8.2)
[2023-07-24 21:45] LABS: Calcium 8.6 mg/dl (8.4-10.2); Glucose 118 mg/dl (74-100)
[2023-07-25 01:19] VITALS: BP 140/79
[2023-07-25 02:11] LABS: Creatinine,Urine Random 128 mg/dL (Not Estab.); Microalbumin/Creatinine Ratio 217.5
[2023-07-25 04:00] VITALS: BP 144/97
[2023-07-25 07:51] VITALS: BP 140/80; PULSE 82; TEMP 36.8; O2SAT 100
[2023-07-25 08:58] VITALS: BP 130/75
--- NOTE | 2023-07-25 09:40 | EXP.DC.SUM ---
General Admission date:: 07/22/23 Discharge date: 07/25/23 HPI HPI HPI: Ms Alicia Hernandez is a 22 yo at 36w6d, by 7 week ultrasound, who presents to [facility] L&D for scheduled induction of labor secondary to gestational hypertension. She is taking Labetalol 200 mg BID. Baby is active. She has had good care. Ultrasound 07/12/23 demonstrated EFW 69 %ile, JOSEY 7.17 and BPP 8/8. History of Present Criteria for establishing EDC:: based on 1st trimester US only care: good care Ultrasounds: normal mid trimester US Obstetrical complications: gestational hypertension Medical complications: none Labs Blood type: O (-) negative Rubella: immune RPR/VDRL: nonreactive GBS status: positive (GBS bactiuria in early ) HBsAG: negative Hospital Course Hospital Course Hospital Course: Alicia Hernandez is a 22-year-old G1, P1 day #2 from a normal spontaneous vaginal delivery at 37 weeks and 0 days gestation. was complicated by gestational hypertension. Routine delivery. Patient has continued back aching right at the epidural spot. Pain does not change with position. There is no bruising. She denies any headaches. Endorses some mild cramping with pumping. Was trying to nurse but unable to as RN thinks may have a tie. Patient reports increased appetite and she is tolerating p.o. without nausea or vomiting. Reports her lochia is scant. She is breast-feeding/ pumping for her female . Ambulating, voiding difficulty or dysuria. Denies headaches, vision changes, right upper quadrant pain, chest pain, shortness of breath or pain in her legs. No further complaints at this time. Patient desires discharge home today routine discharge structure reviewed with patient in detail and questions changing. We discussed blues/ depression and she was understanding. I spent a long time counseling the patient on her elevated blood pressure overnight and the patient reports that there was a long night with several wake up and she was stressed and tired and attributes her elevated blood pressures to that. States that she does well taking her p.o. labetalol twice a day at home. I reviewed the risk of preeclampsia in the setting of gestational hypertension. We discussed the treatment for preeclampsia being magnesium. The patient declines magnesium at this time and states that her dad can check her blood pressures routinely at home. Strict blood pressure precautions were given to the patient to call with a 150/90 or greater and to immediately return to hospital with a 160/100. The patient and significant other voiced understanding. These were also typed out in the discharge instructions. Symptoms of preeclampsia were reviewed with patient in detail and she voiced understanding. Exam Data for Last 24 hours Vital signs and Labs for Last 24 Hours: Temp Pulse Resp BP Pulse Ox O2 Del Method 98.2 F 82 17 130/75 100 Room Air 07/25/23 07:51 07/25/23 07:51 07/24/23 04:09 07/25/23 08:58 07/25/23 07:51 07/25/23 07:51 Laboratory Results - last 24 hr 07/24/23 21:30: WBC 13.5 H D, RBC 3.69 L, Hgb 10.0 L, Hct 29.6 L, MCV 80.0 L, MCH 27.1, MCHC 33.8, RDW 13.9, Plt Count 358, MPV 8.9, Neut % (Auto) 78.3, Lymph % (Auto) 16.2, Rush % (Auto) 3.7, Eos % (Auto) 1.5, Baso % (Auto) 0.3, Neut # (Auto) 10.6 H, Lymph # (Auto) 2.2, Rush # (Auto) 0.5, Eos # (Auto) 0.2, Baso # (Auto) 0.1, Sodium 135 L, Potassium 3.9, Chloride 108 H, Carbon Dioxide 23, Anion Gap 7.9, BUN 7, Creatinine 0.70, Estimated Creat Clear 169, Estimated GFR 106, Est GFR ( Amer) 128, Glucose 118 H, Calcium 8.6, Total Bilirubin 0.4, AST 29, ALT 23, Alkaline Phosphatase 127 H, Total Protein 6.1 L, Albumin 3.2 L, Globulin 2.9, Albumin/Globulin Ratio 1.1 07/25/23 01:00: Urine Creatinine 128, Urine Microalbumin 278.500 H, Microalb/Creat Ratio 217.5 I & O for Last 24 hours: Intake & Output 07/22/23 07/23/23
== END 2023-07-25 11:55 | disposition home or self-care (01) | DRG 807 ==
LOC: OBOUT 15:18 → OB 15:18
PROVIDERS: Obstetrics & Gynecology; Admitting Provider Obstetrics & Gynecology; PCP Internal Medicine Adolescent Medicine; Visit Provider Obstetrics & Gynecology
DX: O99.214 Obesity complicating childbirth (principal); Z37.0 Single live birth; Z3A.37 37 weeks gestation of pregnancy; O70.1 Second degree perineal laceration during delivery; O13.4 Gestational [pregnancy-induced] hypertension without significant proteinuria, complicating childbirth; O90.81 Anemia of the puerperium; D50.9 Iron deficiency anemia, unspecified
CPT/HCPCS: 59409; 36415; 59025; 80053; 80305; 81001; 82043; 82570; 85014; 85018; 85025; 86850; 86870; 87086; 88307; 94761; G0283; G0463

== ENCOUNTER 2023-10-12 16:04 | Emergency (ER) | payer OTHER, SELFPAY ==
[2023-10-12 16:04] VITALS: BP 143/99; PULSE 122; RESP 18; TEMP 37; O2SAT 96; BMI 30.5
--- NOTE | 2023-10-12 16:11 | ED_ITS ---
Discharge Plan Disposition Patient Disposition: Home, Self-Care Condition: Good Prescriptions Prescriptions: No Action labetalol 200 mg tablet 400 mg PO BID metoclopramide HCl [Reglan] 10 mg tablet 10 mg PO BIDWMEAL PRN (Reason: nausea and vomiting) 10 Days Qty: 20 0RF Referrals Follow up/Referrals: Julio Schmitz MD [Primary Care Provider] - See instructions Activity Restrictions/Add. Instructions Additional Instructions/Restrictions: Drink plenty of fluids. Take tylenol or ibuprofen for pain or fever. Follow up with your regular doctor. GO TO THE ER FOR ANY WORSENING SYMPTOMS Clinical Impressions Clinical Impression: Acute viral syndrome Instructions Patient Instructions: DI for Viral Syndrome Discharge ED Provider: Mj Dotson [facility] General Stated complaint: mansoor fever Time Seen by Provider: 10/12/23 16:11 History of Present Illness Provider Complaint: She states that for the past 2 days she has had fever, chills, malaise, sore throat and cough. She has a 3 week old baby and she is . Related Data Home Medications Medication Instructions Recorded Confirmed labetalol 200 mg tablet 400 mg PO BID 07/27/23 10/12/23 Previous Rx's Medication Instructions Recorded metoclopramide HCl 10 mg tablet 10 mg PO BIDWMEAL PRN nausea and 09/28/23 (Reglan) vomiting 10 days #20 tabs Allergies Allergy/AdvReac Type Severity Reaction Status Date / Time Penicillins Allergy Severe Anaphylaxis Verified 10/12/23 16:21 povidone-iodine AdvReac Mild Itching Verified 10/12/23 16:21 [From Betadine] soap [From Betadine] AdvReac Mild Itching Verified 10/12/23 16:21 [facility] Disclaimer: The information contained in this section may have been updated after the patient was seen, as this information can be updated by other users. Medical History Gestational hypertension History of ankle fracture History of PCOS Rh negative state in antepartum period Status post normal vaginal delivery Surgical History H/O adenoidectomy History of ankle surgery Hx of tonsillectomy [place] teeth extracted Family History Other Diabetes Heart attack Hyperlipidemia Hypertension Thyroid disorder Social History Smoking Status: Never smoker second hand exposure: No alcohol intake: never substance use type: denies use current occupational status: unemployed Travel in the last 8 weeks: None current occupational exposures/hazards: No caffeine: Yes ROS Obtained: Yes All systems reviewed & no additional complaints except as documented Constitutional Constitutional: Reports chills and Reports fever(s) Eyes Eyes: Denies eye discharge ENT Ears, Nose, Mouth, and Throat: Reports as per HPI Cardiovascular Cardiovascular: Denies chest pain Respiratory Respiratory: Denies chest congestion and Reports cough Gastrointestinal Gastrointestingal: Reports nausea; Denies abdominal pain, constipation, cramping, diarrhea or vomiting Musculoskeletal Musculoskeletal: Denies arthralgias Integumentary/Breasts Skin/Breast: Denies rash Neurologic Neurologic: Denies paresthesias Physical Exam General General appearance: alert and in no apparent distress Eye Eye exam: Present normal appearance, PERRL and EOMI ENT ENT exam: Present mucous membranes moist and normal external ear exam Expanded ENT Exam External ear exam: Present normal external inspection TM/Canal exam: Bilateral TM: erythema and bulging Nose exam: Absent sinus tenderness Nasal speculum exam: Bilateral: normal Mouth exam: Present normal external inspection; Absent drooling Teeth exam: Present normal inspection Throat exam: Present tonsillar erythema and tonsillomegaly Neck Neck exam: Present normal inspection, full ROM and trachea midline; Absent tenderness, lymphadenopathy or thyromegaly Chest Chest inspection: Present normal inspection and symmetric chest wall rise; Absent tenderness or rash Respiratory Respiratory exam: Present normal lung sounds bilaterally; Absent respiratory distress, wheezes, stridor or accessory muscle use Cardiovascular Cardiovascular exam: Present regular rate, normal rhythm and normal heart sounds Abdominal Exam Abdominal exam: Present soft; Absent distention, tenderness, guarding, rebound or rigidity Extremities Exam Extremities exam: Present normal inspection, full ROM and normal capillary refill; Absent tenderness or calf tenderness Back Exam Back exam: Present normal inspection and full ROM; Absent tenderness Neurological Exam Neurological exam: Present alert and oriented X3 Psychiatric Psychiatric exam: Present normal affect and normal mood Skin Skin exam: Present warm, dry, intact and normal color Lymphatic Lymphatic Findings: no adenopathy Medical Decision Making Medical Records Medical records reviewed: No I reviewed the patient's medical records. Corey Arora Pt receiving controlled substance: No Lab Data Lab results reviewed: Yes I reviewed the patient's lab results.
[2023-10-12 16:19] LABS: Adenovirus,PCR Not Detected (NotDetected); Coronavirus 19, PCR Not Detected (NotDetected); Coronavirus 229E Not Detected (NotDetected); Coronavirus OC43 Not Detected (NotDetected); Coronovirus HKU1,PCR Not Detected (NotDetected); Human Metapneumovirus Not Detected (NotDetected); Influenza A, PCR Not Detected (NotDetected); Influenza AH1, 2009 Not Detected (NotDetected); Influenza AH1, PCR Not Detected (NotDetected); Influenza AH3,PCR Not Detected (NotDetected); Influenza B, PCR Not Detected (NotDetected); Parainfluenza 1, PCR Not Detected (NotDetected); Parainfluenza 2, PCR Not Detected (NotDetected); Parainfluenza 3, PCR Not Detected (NotDetected); Parainfluenza 4, PCR Not Detected (NotDetected); Respiratory Syncytial Virus Not Detected (NotDetected); Rhinovirus/Enterovirus Not Detected (NotDetected)
[2023-10-12 16:33] VITALS: BP 143/99; PULSE 122; RESP 18; TEMP 37; O2SAT 96
[2023-10-12 17:42] LABS: Coronavirus NL63 Detected (NotDetected)
== END 2023-10-12 16:33 | disposition home or self-care (01) ==
PROVIDERS: Emergency Provider Nurse Practitioner Family; PCP Internal Medicine Adolescent Medicine
DX: R05.9 Cough, unspecified (principal); B34.2 Coronavirus infection, unspecified; R07.0 Pain in throat; R53.81 Other malaise
CPT/HCPCS: 87632; 87635; 99212; 99213; G0463

== ENCOUNTER 2023-10-20 21:59 | Emergency (ER) | payer OTHER, SELFPAY ==
[2023-10-20 22:00] VITALS: BP 155/98; PULSE 81; RESP 18; TEMP 37.1; O2SAT 98; BMI 30.5
--- NOTE | 2023-10-20 22:07 | ED_ITS ---
<Statement entered by Monica Olivarez MD - 10/20/23 22:53> I was consulted by the YOLIS, and we discussed the complexity of the problems being addressed. I approved the treatment and management plan for this patient's care in the emergency department, thus performing a substantive portion of the medical decision making. Monica Olivarez MD, ÁNGELA, FACEP Discharge Plan Disposition Patient Disposition: Home, Self-Care Condition: Good Chief Complaint: Extremity Injury, Lower Referrals Follow up/Referrals: Julio Schmitz MD [Primary Care Provider] - See instructions Activity Restrictions/Add. Instructions Additional Instructions/Restrictions: I and elevation as needed along with Tylenol alternating with Motrin every 4 hours as needed for symptomatic pain and swelling. Return to ER PCP for evaluation as needed. Clinical Impressions Clinical Impression: Contusion of toe of right foot Qualifiers: Encounter type: initial encounter Toe: great toe Damage to nail status: without damage Qualified Code(s): S90.111A - Contusion of right great toe without damage to nail, initial encounter Discharge ED Provider: Monica Olivarez General Adult HPI General Chief complaint: Extremity Injury, Lower Stated complaint: AO03/@2020 RT big toe inj Time Seen by Provider: 10/20/23 22:07 History of Present Illness HPI narrative: Patient presents for evaluation after accidentally dropping impact drill on her right hallux. Patient reports pain and swelling. Skin is intact. Related Data Allergies Allergy/AdvReac Type Severity Reaction Status Date / Time Penicillins Allergy Severe Anaphylaxis Verified 10/15/23 15:43 povidone-iodine AdvReac Mild Itching Verified 10/15/23 15:43 [From Betadine] soap [From Betadine] AdvReac Mild Itching Verified 10/15/23 15:43 [facility] Disclaimer: The information contained in this section may have been updated after the patient was seen, as this information can be updated by other users. Medical History (Updated 10/20/23 @ 22:39 by NATHAN Nguyen) Irregular periods Dysmenorrhea Abnormal uterine bleeding (AUB) Status post normal vaginal delivery Gestational hypertension Rh negative state in antepartum period History of PCOS History of ankle fracture Surgical History History of ankle surgery [place] teeth extracted H/O adenoidectomy Hx of tonsillectomy Family History Other Diabetes Heart attack Hyperlipidemia Hypertension Thyroid disorder Social History Smoking Status: Never smoker second hand exposure: No alcohol intake: never substance use type: denies use current occupational status: unemployed Travel in the last 8 weeks: None current occupational exposures/hazards: No caffeine: Yes ROS Obtained: Yes Systems reviewed as appropriate & no additional complaints except as documented Physical Exam General General appearance: alert and in no apparent distress Respiratory Respiratory exam: Present normal lung sounds bilaterally Cardiovascular Cardiovascular exam: Present regular rate, normal rhythm, +S1 and +S2 Extremities Exam Extremities exam: Present other (Patient has ecchymosis at the MTP of the hallux of the right foot however there is no apparent bony deformity to palpation.) Neurological Exam Neurological exam: Present alert Medical Decision Making Medical Records Medical records reviewed: Yes I reviewed the patient's medical records. Corey Inquiry Pt receiving controlled substance: No Vital Signs: 10/20/23 22:00 Temperature 98.7 F Temperature Source Oral Pulse Rate [Left] 81 Respiratory Rate 18 Blood Pressure [Right Arm] 155/98 H Blood Pressure Mean [Right Arm] 117 Blood Pressure Source [Right Arm] Automatic Cuff Blood Pressure Position [Right Arm] Supine 02 Sat by Pulse Oximetry 98 Oxygen Delivery Method Room Air Orders (Tests/Meds): ED MEDICATIONS Discontinued Medications Generic Name Dose Route Start Last Admin Trade Name Freq PRN Reason Stop Dose Admin Acetaminophen 1,000 mg 10/20/23 22:14 10/20/23 22:20 Acetaminophen 500mg Tab PO 10/20/23 22:15 1,000 mg ONCE ONE Administration Ketorolac Tromethamine 30 mg 10/20/23 22:14 10/20/23 22:20 Ketorolac 30mg/Ml Vial IM 10/20/23 22:15 30 mg ONCE ONE Administration ORDERS Category Date Time Status Toe XR right minimum 2 views [XR toe RT min 2V] Stat Exams 10/20/23 22:07 Taken Medical Decision Narrative: In summary patient is a 21-year-old female who presents to the emergency department for evaluation of injury to her right hallux. Patient is hemodynamically stable upon arrival, afebrile. Physical exam is remarkable for ecchymosis at the MTP joint of the right hallux without bony deformity. Differential diagnosis includes contusion versus fracture. Initial workup will be conducted with plain film x-ray. Initial interventions include Toradol acetaminophen. Initial workup reviewed by me and her plain film x-ray as informally interpreted by me shows no acute fracture with radiologist read pending. Upon repeat evaluation patient is able to bear weight and her digit is stable. Given this appropriate for discharge home with instructions for ice elevation with acetaminophen and Tylenol alternating for symptomatic pain. Critical Care Critical Care Time Critical Care Time: No
--- NOTE | 2023-10-20 22:07 | XR_ITS ---
PROCEDURE INFORMATION: Exam: XR Right Toe(s) Exam date and time: 10/20/2023 10:10 PM Age: 23 years old Clinical indication: Injury or trauma; Other: Dropped impact wrench on right great toe; Crushing; Toes; Right greater toe; Patient HX: Dropped an impact gun on right great toe. TECHNIQUE: Imaging protocol: Radiologic exam of the right toes. Views: Minimum 2 views. COMPARISON: MR ANKLE RT WO CON 24/07/2021 13:47 FINDINGS: Bones/joints: Mild hallux valgus deformity. No acute fracture or dislocation. Soft tissues: Normal. IMPRESSION: No acute fracture or dislocation.
[2023-10-20] MEDS: KETOROLAC 30MG/ML VIAL 30 MG IM (22:20)
[2023-10-20] MEDS: ACETAMINOPHEN 500MG TAB 1000 MG PO (22:20)
[2023-10-20 22:40] VITALS: BP 155/98; PULSE 81; RESP 18; TEMP 37.1; O2SAT 98
== END 2023-10-20 22:42 | disposition home or self-care (01) ==
PROVIDERS: Emergency Provider Student in an Organized Health Care Education/Training Program; PCP Internal Medicine Adolescent Medicine
DX: S90.111A Contusion of right great toe without damage to nail, initial encounter (principal); W29.8XXA Contact with other powered hand tools and household machinery, initial encounter
CPT/HCPCS: 73660; 96372; 99283

== ENCOUNTER 2023-12-31 12:06 | Emergency (ER) | payer OTHER, SELFPAY ==
[2023-12-31 12:25] VITALS: BP 136/80; PULSE 66; RESP 21; TEMP 37.1; O2SAT 100; BMI 30.4
[2023-12-31 12:46] LABS: Apearance,Urine Clear (Clear); Color,Urine Yellow (Yellow); Glucose,Urine (UA) Negative (Negative); Protein,Urine Negative (Negative)
[2023-12-31 12:47] LABS: Bilirubin,Urine Negative (Negative); Blood, Urine Negative (Negative); Ketones,Urine Negative (Negative); UTC Leukocyte Esterase,Urine 1+ (Negative); UTC Nitrate,Urine Negative (Negative); UTC Pregnancy Test, Urine Negative (Negative); Urobilinogen,Urine 0.2 EU/dl (0.2)
--- NOTE | 2023-12-31 12:50 | EXP.UTC ---
Discharge Plan Disposition Patient Disposition: Home, Self-Care Condition: Good Referrals Follow up/Referrals: Jessica Bailey DO [Staff Physician] - See instructions Rut Ugarte APRN [Primary Care Provider] - See instructions Activity Restrictions/Add. Instructions Additional Instructions/Restrictions: keep a diary of your pain and discomfort Follow up with your Family Doctor Follow up with OBGYN for further evaluation and examination with testing Straight to ER if any life threatening symptoms Clinical Impressions Clinical Impression: Abdominal discomfort Instructions Patient Instructions: DI for Abdominal Pain-Adult, DI for Endometriosis Discharge ED Provider: Melissa Barros Serge [facility] General Stated complaint: abd pain x 3 weeks Mode of Arrival: Ambulatory Source of Information: Patient Limitations: No Limitations Time Seen by Provider: 12/31/23 12:51 Description of Symptoms (Recalled from Triage Doc. by RN): PATIENT C/O CRAMPING ACROSS MIDDLE ABDOMEN X 3 WEEKS. PATIENT DENIES NAUSEA, VOMITING, DIARRHEA, OR ANY URINARY SYMPTOMS HEENT Symptoms (Recalled from RN notes): No Resp Symptoms (Recalled from RN notes): No Skin Symptoms (Recalled from RN notes): No MS Symptoms (Recalled from RN notes): No Functional Status (Recalled from RN notes): WNL History of Present Illness Provider Complaint: Patient states that she has been having intermittent cramping like feeling in her lower abdomen that comes and goes for over 3 wks States it is very uncomfortable at times and then it will ease off States that her previous OBGYN told her that she had endometriosis not sure if that is acting up or what States this morning it was hurting her again so she came in to get checked to figure out what it could be Related Data Allergies Allergy/AdvReac Type Severity Reaction Status Date / Time Penicillins Allergy Severe Anaphylaxis Verified 10/15/23 15:43 povidone-iodine AdvReac Mild Itching Verified 10/15/23 15:43 [From Betadine] soap [From Betadine] AdvReac Mild Itching Verified 10/15/23 15:43 Worker's Comp Is this a Worker's Comp case?: No [facility] Disclaimer: The information contained in this section may have been updated after the patient was seen, as this information can be updated by other users. Medical History (Updated 12/31/23 @ 13:23 by Gabby Barros, DEFENSE ANALYST) Irregular periods Dysmenorrhea Abnormal uterine bleeding (AUB) Status post normal vaginal delivery Gestational hypertension Rh negative state in antepartum period History of PCOS History of ankle fracture Surgical History History of ankle surgery [place] teeth extracted H/O adenoidectomy Hx of tonsillectomy Family History Other Diabetes Heart attack Hyperlipidemia Hypertension Thyroid disorder Social History Smoking Status: Never smoker second hand exposure: No alcohol intake: never substance use type: denies use current occupational status: unemployed Travel in the last 8 weeks: None current occupational exposures/hazards: No caffeine: Yes ROS Obtained: Yes All systems reviewed & no additional complaints except as documented and Yes Systems reviewed as appropriate & no additional complaints except as documented Constitutional Constitutional: Reports system reviewed and no additional complaints, except as documented, Reports as per HPI, Denies body ache, Denies chills and Denies fever(s) ENT Ears, Nose, Mouth, and Throat: Reports system reviewed and no additional complaints, except as documented, Reports as per HPI and Denies odynophagia Cardiovascular Cardiovascular: Reports system reviewed and no additional complaints, except as documented, Reports as per HPI, Denies chest pain, Denies dyspnea, Denies edema and Denies lightheadedness Respiratory Respiratory: Reports system reviewed and no additional complaints, except as documented, Reports as per HPI, Denies shortness of breath, Denies chest congestion, Denies cough and Denies dyspnea Gastrointestinal Gastrointestingal: Reports system reviewed and no additional complaints, except as documented, as per HPI, abdominal pain (crampy like pain on and mid abdomen to lower abdomen that comes and goes ) and cramping; Denies belching, change in bowel habits, coffee ground emesis, constipation, dyspepsia, excessive flatus, heartburn, hematemesis, hematochezia, loose stools, melena, nausea, odynophagia, reflux or vomiting Comments: Denies constipation States last BM was this am and it was normal Genitourinary Female Genitourinary: Reports system reviewed and no additional complaints, except as documented, Reports as per HPI, Denies amenorrhea, Denies dysmenorrhea, Denies dyspareunia, Denies dysuria, Denies flank pain, Denies genital lesions, Denies hematuria, Denies menorrhagia, Denies metrorrhagia, Denies nipple discharge, Denies urinary frequency, Denies urinary urgency and Denies vaginal discharge Musculoskeletal Musculoskeletal: Reports system reviewed and no additional complaints, except as documented and Reports as per HPI Integumentary/Breasts Skin/Breast: Reports system reviewed and no additional complaints, except as documented, Reports as per HPI and Denies nipple discharge Physical Exam General General appearance: alert and in no apparent distress ENT ENT exam: Present mucous membranes moist Respiratory Respiratory exam: Present normal lung sounds bilaterally; Absent respiratory distress or wheezes Cardiovascular Cardiovascular exam: Present regular rate, normal rhythm and normal heart sounds Abdominal Exam Abdominal exam: Present soft and normal bowel sounds; Absent distention, tenderness or guarding Comment: Patient reports crampy like pain has let up now but when it occurse it is located from umbilical area to lower abdomen Neurological Exam Neurological exam: Present alert, oriented X3 and normal gait Medical Decision Making Corey Inquiry Pt receiving controlled substance: No Corey was queried for this patient: No Vital Signs: 12/31/23 12:25 Temperature 98.7 F Temperature Source Oral Pulse Rate [Left Brachial] 66 Respiratory Rate 21 Blood Pressure [Left Arm] 136/80 Blood Pressure Mean [Left Arm] 98 Blood Pressure Source [Left Arm] Automatic Cuff Blood Pressure Position [Left Arm] Sitting 02 Sat by Pulse Oximetry 100 Oxygen Delivery Method Room Air Lab Data Lab results reviewed: Yes I reviewed the patient's lab results. Lab Results 12/31/23 12:42: Urine Color Yellow, Urine Appearance Clear, Urine pH 7.0, Ur Specific [place] 1.020, Urine Protein Negative, Urine Glucose (UA) Negative, Urine Ketones Negative, Urine Blood Negative, Urine Nitrate Negative, Urine Bilirubin Negative, Urine Urobilinogen 0.2, Ur Leukocyte Esterase 1+ A, Tst Clinic Negative Orders (Tests/Meds): ORDERS Category Date Time Status Urine Culture Stat Micro 12/31/23 12:43 Ordered Medical Decision Narrative: Discussed with patient about transfer to the ED states that pain has eased off now and feels better and patient has her child with her patient educated to follow up with OBGYN and Family Doctor for further testing and evaluation, urine was negative in the WAC for infection but will send it for culture Patient sitting on exam table holding
[2023-12-31 13:25] VITALS: BP 136/80; PULSE 66; RESP 21; TEMP 37.1; O2SAT 100
== END 2023-12-31 13:29 | disposition home or self-care (01) ==
PROVIDERS: Emergency Provider Nurse Practitioner; PCP Nurse Practitioner Family
DX: R10.30 Lower abdominal pain, unspecified (principal); B96.89 Other specified bacterial agents as the cause of diseases classified elsewhere
CPT/HCPCS: 81003; 81025; 87086; 99212; 99213; G0463

== ENCOUNTER 2024-01-03 23:50 | Emergency (ER) | payer OTHER, SELFPAY ==
[2024-01-03 23:59] VITALS: BP 145/88; PULSE 116; RESP 22; TEMP 37.3; O2SAT 99; BMI 32.2
[2024-01-04] MEDS: ONDANSETRON 4MG/2ML VIAL 4 MG IV (00:11)
[2024-01-04] MEDS: ACETAMINOPHEN 500MG TAB 1000 MG PO (00:11)
[2024-01-04] MEDS: LACTATED RINGERS 1000ML 1,000 ML 999 ML IV (00:11)
--- NOTE | 2024-01-04 00:11 | ED_ITS ---
Discharge Plan Disposition Patient Disposition: Home, Self-Care Referrals Follow up/Referrals: Julio Schmitz MD [Primary Care Provider] - See instructions Activity Restrictions/Add. Instructions Additional Instructions/Restrictions: Please follow-up with your primary care provider. Please return to the emergency department if you develop any new or worsening symptoms or become concerned for your health. Please take Zofran as needed for nausea vomiting. Clinical Impressions Clinical Impression: Abdominal cramping, Nausea & vomiting Instructions Patient Instructions: DI for Acute Abdominal Pain Discharge ED Provider: Harlan Silva General Adult HPI General Chief complaint: Abdominal Pain Stated complaint: nausea, vomiting, diarrhea, severe abd cramps Time Seen by Provider: 01/03/24 23:53 Mode of Arrival: Family Vehicle Source of Information: Patient Limitations: No Limitations Description of Symptoms (Recalled from ER Triage Doc. by RN): 23 yo female with 3 x weeks of diffuse abd cramping, acute onset of vomiting and diarrhea today. Patient has been afebrile. PMH: HTN PSH: tonsillectomy/adenoidectomy,wisdom teeth and 2 x left ankle. LMP: 12/17/23. Recent negative preg test a couple of days ago. History of Present Illness HPI narrative: 23-year-old female presents with multiple complaints. She presents because she started having some vomiting and diarrhea today. She reports that she took some Zofran without improvement at home. Patient also reports that she has had approximately 3 weeks of daily crampy abdominal pain. Last menstrual period started on December 16. No history of intra-abdominal surgery. No recent fever or illness. She denies any urinary symptoms. Related Data Allergies Allergy/AdvReac Type Severity Reaction Status Date / Time Penicillins Allergy Severe Anaphylaxis Verified 10/15/23 15:43 povidone-iodine AdvReac Mild Itching Verified 10/15/23 15:43 [From Betadine] soap [From Betadine] AdvReac Mild Itching Verified 10/15/23 15:43 [facility] Disclaimer: The information contained in this section may have been updated after the patient was seen, as this information can be updated by other users. Medical History (Updated 01/04/24 @ 01:13 by Madeline Pelletier RN) Irregular periods Dysmenorrhea Abnormal uterine bleeding (AUB) Status post normal vaginal delivery Gestational hypertension Rh negative state in antepartum period History of PCOS History of ankle fracture Surgical History History of ankle surgery [place] teeth extracted H/O adenoidectomy Hx of tonsillectomy Family History Other Diabetes Heart attack Hyperlipidemia Hypertension Thyroid disorder Social History Smoking Status: Unknown if ever smoked second hand exposure: No alcohol intake: never substance use type: denies use current occupational status: unemployed Travel in the last 8 weeks: None current occupational exposures/hazards: No caffeine: Yes ROS Obtained: Yes All systems reviewed & no additional complaints except as documented Physical Exam General General appearance: alert and in no apparent distress Head Head exam: atraumatic and normocephalic Eye Eye exam: Present normal appearance, PERRL and EOMI ENT ENT exam: Present normal oropharynx and normal external ear exam Neck Neck exam: Present normal inspection and full ROM Chest Chest inspection: Present normal inspection and symmetric chest wall rise; Absent tenderness Respiratory Respiratory exam: Present normal lung sounds bilaterally; Absent respiratory distress Cardiovascular Cardiovascular exam: Present regular rate and normal rhythm Abdominal Exam Abdominal exam: Present soft and tenderness (Minimal, generalized); Absent distention or guarding Extremities Exam Extremities exam: Present normal inspection; Absent edema or joint swelling Back Exam Back exam: Present normal inspection; Absent tenderness Neurological Exam Neurological exam: Present alert and oriented X3; Absent motor sensory deficit Psychiatric Psychiatric exam: Present normal affect and normal mood Skin Skin exam: Present warm, dry and normal color Lymphatic Lymphatic Findings: no adenopathy Medical Decision Making Medical Records Medical records reviewed: Yes I reviewed the patient's medical records. Corey Inquiry Pt receiving controlled substance: No Corey was queried for this patient: No Vital Signs: 01/03/24 23:59 01/04/24 01:06 Temperature 99.1 F 98.3 F Temperature Source Oral Oral Pulse Rate 95 H Pulse Rate [Right Brachial] 116 H Respiratory Rate 22 16 Blood Pressure 148/95 H Blood Pressure [Right Arm] 145/88 H Blood Pressure Mean [Right Arm] 107 Blood Pressure Source [Right Arm] Automatic Cuff Blood Pressure Position [Right Arm] Sitting 02 Sat by Pulse Oximetry 99 Oxygen Delivery Method Room Air Lab Data Lab results reviewed: Yes I reviewed the patient's lab results. Lab Results 01/03/24 23:55: WBC 14.8 H, RBC 5.35, Hgb 14.8, Hct 44.8, MCV 83.8, MCH 27.7, MCHC 33.1, RDW 15.1, Plt Count 289, MPV 9.2, Neut % (Auto) 91.1 H, Lymph % (Auto) 4.2 L, [place] % (Auto) 3.2, Eos % (Auto) 1.1, Baso % (Auto) 0.4, Neut # (Auto) 13.5 H, Lymph # (Auto) 0.6 L, [place] # (Auto) 0.5, Eos # (Auto) 0.2, Baso # (Auto) 0.1, Total Counted 100, Neutrophils % (Manual) 90 H, Lymphocytes % (Manual) 4 L, Monocytes % (Manual) 6, Platelet Estimate Normal, RBC Morphology Normal, Sodium 139, Potassium 3.8, Chloride 104, Carbon Dioxide 23, Anion Gap 15.8 H, BUN 12, Creatinine 0.80, Estimated Creat Clear 144, Estimated GFR 90, Est GFR ( Amer) 109, Glucose 113 H, Calcium 10.1, Magnesium 1.7, Total Bilirubin 1.6 H, AST 26, ALT 23, Alkaline Phosphatase 58, Total Protein 8.1 D, Albumin 5.1 H, Globulin 3.0, Albumin/Globulin Ratio 1.7, Lipase 54, Serum HCG, Qual Negative 01/03/24 23:55 01/03/24 23:55 Orders (Tests/Meds): ED MEDICATIONS Discontinued Medications Generic Name Dose Route Start Last Admin Trade Name Berhaneq PRN Reason Stop Dose Admin Acetaminophen 1,000 mg 01/04/24 00:00 01/04/24 00:11 Acetaminophen 500mg Tab PO 01/04/24 00:01 1,000 mg ONCE ONE Administration Lactated Ringer's 1,000 mls @ 999 mls/hr 01/04/24 00:00 01/04/24 00:11 Lactated Ringer's 1000 Ml Bag IV 01/04/24 01:00 999 mls/hr .Q1H1M DIVYA Administration Ondansetron HCl 4 mg 01/04/24 00:00 05/28/24 00:11 Ondansetron 4mg/2ml Vial IV 01/04/24 00:01 4 mg ONCE ONE Administration ORDERS Category Date Time Status CBC w/Auto Diff [Complete Blood Count Auto Diff] Stat Lab 01/04/24 00:00 Completed CMP [Comprehensive Metabolic Panel] Stat Lab 01/04/24 00:00 Completed HCG Qualitative, Serum Stat Lab 01/04/24 00:01 Completed Lipase Stat Lab 01/04/24 00:01 Completed Magnesium Stat Lab 01/04/24 00:01 Completed Medical Decision Narrative: 23-year-old female presents with multiple complaints including 3 weeks of generalized crampy abdominal pain, 1 day of nausea vomiting diarrhea.. History was obtained interactive discussion with patient. On arrival, patient is [afebrile, hemodynamically stable, satting appropriately, alert, oriented x4, GCS 15], moving all extremities spontaneously. Full physical exam performed and significant for mild generalized abdominal tenderness, no focal tenderness, otherwise benign exam. Differential includes but is not limited to gastroenteritis, pancreatitis, cholecystitis, appendicitis, endometriosis, IBD, IBS, dehydration. Patient was given Tylenol, Zofran, 1 L fluid bolus for symptomatic management and correction of underlying abnormalities. Workup initiated including CBC CMP mag. On re-evaluation, patient [remains afebrile, HD stable.] She reports symptomatic improvement. Laboratory workup independently interpreted by me and significant for mild leukocytosis, no significant electrolyte derangement, negative lipase. CT imaging was considered, but deemed unnecessary due to duration of symptoms, nonfocal abdominal exam. Given patient history, exam and workup, patient's presentation most likely represents gastroenteritis. Unsure exactly what is causing her subacute abdominal cramping, though it does not appear to be an acute emergent pathology such as appendicitis, cholecystitis etc. I discussed these findings with patient. She was discharged in stable condition. She is reports that she has Zofran at home already. She has follow-up with her PCP tomorrow. Procedures Risk/Benefits of Procedure(s) Were Explained: Yes Critical Care Critical Care Time Critical Care Time: No
[2024-01-04 00:13] LABS: Basophils # 0.1 K/mm3 (0-0.2); Basophils % 0.4 % (0.1-2.0); Eosinophils # 0.2 K/mm3 (0.0-0.4); Eosinophils % 1.1 % (0.1-12.0); Hematocrit 44.8 % (37.0-47.0); Hemoglobin 14.8 g/dL (12.2-16.2); Lymphocytes # 0.6 K/mm3 (0.7-4.5); Lymphocytes % 4.2 % (10-50); Mean Corpuscular HGB Conc 33.1 g/dL (31.8-35.4); Mean Corpuscular Hemoglobin 27.7 pg (27.0-31.2); Mean Corpuscular Volume 83.8 fl (81-99); Mean Platelet Volume 9.2 fl (7.4-10.4); Monocytes # 0.5 K/mm3 (0.1-1.0); Monocytes % 3.2 % (1.7-9.3); Neutrophils # 13.5 K/mm3 (1.8-7.8); Neutrophils % 91.1 % (37.0-80.0); Platelet Count 289 K/mm3 (142-424); Red Blood Count 5.35 M/mm3 (4.20-5.40); Red Cell Distribution Width 15.1 % (11.5-17.5); White Blood Count 14.8 K/mm3 (4.8-10.8)
[2024-01-04 00:15] LABS: MANUAL DIFFERENTIAL MANUAL DIFFERENTIAL (MANUAL DIFF)
[2024-01-04 00:28] LABS: Chloride 104 mmol/L (98-107); Sodium 139 mmol/L (136-145)
[2024-01-04 00:29] LABS: Potassium 3.8 mmoL/L (3.5-5.1)
[2024-01-04 00:31] LABS: Alanine Aminotransferase 23 U/L (12-78); Albumin Level 5.1 g/dl (3.5-5.0); Albumin/Globulin Ratio 1.7 (1.1-1.8); Alkaline Phosphatase 58 U/L (38-126); Anion Gap 15.8 mEq/L (5-15); Aspartate Amino Transferase 26 U/L (14-36); Bilirubin,Total 1.6 mg/dl (0.2-1.3); Blood Urea Nitrogen 12 mg/dl (7-17); Calcium 10.1 mg/dl (8.4-10.2); Carbon Dioxide 23 mmol/L (22.0-30.0); Creatinine Clearance Estimated 144 mL/min (50-200); Estimated Glomerular Filt Rate 90 ml/min (>60); GFR (African American) 109 ML/MIN (>60); Glucose 113 mg/dl (74-100); Total Protein,Serum 8.1 g/dl (6.3-8.2)
[2024-01-04 00:32] LABS: Lipase 54 U/L (23-300); Magnesium 1.7 mg/dl (1.6-2.3)
[2024-01-04 00:39] LABS: HCG Qualitative, Serum Negative (Negative)
[2024-01-04 01:06] VITALS: BP 148/95; PULSE 95; RESP 16; TEMP 36.8; O2SAT 100
[2024-01-04 01:34] LABS: Lymphocytes % 4 % (10-50); Monocytes % 6 % (2-9); Neutrophils % 90 % (42-76); Total Cells Counted 100
[2024-01-04 01:35] LABS: Platelet Estimate Normal; RBC Morphology Normal
== END 2024-01-04 01:13 | disposition home or self-care (01) ==
PROVIDERS: Emergency Provider Emergency Medicine; PCP Internal Medicine Adolescent Medicine
DX: R10.819 Abdominal tenderness, unspecified site (principal); R11.2 Nausea with vomiting, unspecified; R19.7 Diarrhea, unspecified
CPT/HCPCS: 80053; 83690; 83735; 84703; 85007; 85025; 96361; 96374; 99284; J2405; J7120

== ENCOUNTER 2024-01-04 13:13 | Emergency (ER) | payer OTHER, SELFPAY ==
[2024-01-04 13:15] VITALS: BP 133/72; PULSE 138; RESP 16; TEMP 37.8; O2SAT 98; BMI 30.3
[2024-01-04] MEDS: LACTATED RINGERS 1000ML 1,000 ML 999 ML IV (13:30)
[2024-01-04 13:54] LABS: Basophils % 0.3 % (0.1-2.0); Eosinophils # 0.1 K/mm3 (0.0-0.4); Eosinophils % 0.5 % (0.1-12.0); Hematocrit 39.1 % (37.0-47.0); Lymphocytes # 0.4 K/mm3 (0.7-4.5); Lymphocytes % 4.2 % (10-50); Mean Corpuscular HGB Conc 33.3 g/dL (31.8-35.4); Mean Corpuscular Hemoglobin 27.7 pg (27.0-31.2); Monocytes # 0.4 K/mm3 (0.1-1.0); Monocytes % 4.7 % (1.7-9.3); Neutrophils % 90.3 % (37.0-80.0); Platelet Count 247 K/mm3 (142-424); Red Blood Count 4.71 M/mm3 (4.20-5.40); White Blood Count 8.9 K/mm3 (4.8-10.8)
[2024-01-04 14:02] LABS: Chloride 102 mmol/L (98-107); Potassium 3.3 mmoL/L (3.5-5.1); Sodium 134 mmol/L (136-145)
[2024-01-04 14:05] LABS: Alanine Aminotransferase 29 U/L (12-78); Albumin Level 4.3 g/dl (3.5-5.0); Albumin/Globulin Ratio 1.7 (1.1-1.8); Alkaline Phosphatase 39 U/L (38-126); Anion Gap 14.3 mEq/L (5-15); Aspartate Amino Transferase 26 U/L (14-36); Bilirubin,Total 2.1 mg/dl (0.2-1.3); Blood Urea Nitrogen 10 mg/dl (7-17); Carbon Dioxide 21 mmol/L (22.0-30.0); Creatinine Clearance Estimated 150 mL/min (50-200); Estimated Glomerular Filt Rate 105 ml/min (>60); GFR (African American) 127 ML/MIN (>60); Globulin 2.5 g/dL (1.3-3.2); Total Protein,Serum 6.8 g/dl (6.3-8.2)
[2024-01-04 14:06] LABS: Calcium 9.1 mg/dl (8.4-10.2); Glucose 121 mg/dl (74-100)
[2024-01-04 14:07] LABS: MANUAL DIFFERENTIAL MANUAL DIFFERENTIAL (MANUAL DIFF)
[2024-01-04 14:10] LABS: HCG Qualitative, Serum Negative (Negative)
[2024-01-04 14:12] LABS: Lactic Acid 2.3 mmol/L (0.7-2.1)
--- NOTE | 2024-01-04 14:18 | ECG_ITS ---
APPROVED REPORT Exam: Resting ECG HR:120 bpm ECG Measurements Heart Rate 120 AXES NV 169 P 62 QRSd 108 QRS 7 QT 339 T 37 QTc 410 Conclusion Sinus tachycardia No evidence of acute ischemic change Electronically signed by : CHARLEE LARIOS, 01/04/2024 20:43:49
[2024-01-04 14:23] LABS: Lipase 28 U/L (23-300)
[2024-01-04] MEDS: KETOROLAC 30MG/ML VIAL 15 MG IV (14:26)
[2024-01-04] MEDS: ACETAMINOPHEN 1,000MG/100ML VIAL 1000 MG IV (14:26)
[2024-01-04] MEDS: ONDANSETRON 4MG/2ML VIAL 4 MG IV (14:26)
[2024-01-04 14:28] LABS: Coronavirus 19, PCR Not Detected (NotDetected); Influenza A, PCR Not Detected (NotDetected); Influenza B, PCR Not Detected (NotDetected)
[2024-01-04 14:29] LABS: Lymphocytes % 7 % (10-50); Monocytes % 2 % (2-9); Neutrophils % 91 % (42-76); Platelet Estimate Normal; RBC Morphology Normal; Total Cells Counted 100
--- NOTE | 2024-01-04 14:30 | ED_ITS ---
Discharge Plan Disposition Patient Disposition: Home, Self-Care Prescriptions Prescriptions: New nitrofurantoin monohyd/m-cryst [Macrobid] 100 mg capsule 100 mg PO BID 5 Days Qty: 10 0RF Rx Instructions: must administer with a meal/food Referrals Follow up/Referrals: Babar Freeman MD [Staff Physician] - See instructions Julio Schmitz MD [Primary Care Provider] - See instructions Activity Restrictions/Add. Instructions Additional Instructions/Restrictions: Follow-up with Dr. Freeman, you can call his office in order to schedule follow- up for gallstones. Call your family doctor to establish care for this visit to the emergency department and schedule follow-up within 48 hours to ensure improvement. If you have any worsening of your condition or any other concerning signs or symptoms, return to the emergency department or your primary care doctor for further evaluation. Clinical Impressions Clinical Impression: Abdominal pain, UTI (urinary tract infection), Enteritis, Symptomatic cholelithiasis Instructions Patient Instructions: DI for Acute Abdominal Pain Discharge ED Provider: Yaya Burks General Adult HPI <Milagros Clayton DO - Last Filed: 01/04/24 16:21> General Chief complaint: Abdominal Pain Stated complaint: Physican referral abd cramping Time Seen by Provider: 01/04/24 13:18 Mode of Arrival: Ambulatory Source of Information: Patient Limitations: No Limitations Description of Symptoms (Recalled from ER Triage Doc. by RN): pt presents to ED from PCP office. pt report abdominal pain x 3-4 weeks. pt reports intermittent fever. pt denies anything making her pain better or worse. pt states pain is t/o abdominal area. History of Present Illness HPI narrative: This patient is a 23-year-old female presenting from her PCPs office with concern for 3 to 4 weeks of generalized abdominal pain, intermittent fever, nausea, and vomiting. She states that it hurts all over. No changes in bowel movements, such as diarrhea or constipation noted. On medical record review, she was seen here yesterday for similar symptoms and seen in [facility] 12/31/2023. Yesterday, she was found to have leukocytosis on lab evaluation, and anion gap is very mildly elevated. Bilirubin is very mildly elevated at 1.6. Labs are otherwise reassuring. No imaging obtained on medical interview. Patient states that since going home, her symptoms were worse and she followed up with primary care who sent her here for further evaluation and management given her severe symptoms. Related Data Previous Rx's Medication Instructions Recorded nitrofurantoin 100 mg PO BID 5 days #10 caps 01/04/24 monohydrate/macrocrystals 100 mg capsule (Macrobid) Allergies Allergy/AdvReac Type Severity Reaction Status Date / Time Penicillins Allergy Severe Anaphylaxis Verified 10/15/23 15:43 povidone-iodine AdvReac Mild Itching Verified 10/15/23 15:43 [From Betadine] soap [From Betadine] AdvReac Mild Itching Verified 10/15/23 15:43 PFSH <Milagros Clayton DO - Last Filed: 01/04/24 16:21> [facility] Disclaimer: The information contained in this section may have been updated after the patient was seen, as this information can be updated by other users. Medical History Irregular periods Dysmenorrhea Abnormal uterine bleeding (AUB) Status post normal vaginal delivery Gestational hypertension Rh negative state in antepartum period History of PCOS History of ankle fracture Surgical History History of ankle surgery [place] teeth extracted H/O adenoidectomy Hx of tonsillectomy Family History Other Diabetes Heart attack Hyperlipidemia Hypertension Thyroid disorder Social History Smoking Status: Never smoker second hand exposure: No alcohol intake: never substance use type: denies use current occupational status: unemployed Travel in the last 8 weeks: None current occupational exposures/hazards: No caffeine: Yes <Milagros Clayton DO - Last Filed: 01/04/24 16:21> ROS Obtained: Yes All systems reviewed & no additional complaints except as documented Physical Exam <Milagros Clayton DO - Last Filed: 01/04/24 16:21> General General appearance: alert and in no apparent distress Comment: Uncomfortable appearing Head Head exam: atraumatic and normocephalic Eye Eye exam: Present normal appearance, PERRL and EOMI ENT ENT exam: Present normal exam, normal oropharynx, mucous membranes moist and normal external ear exam Neck Neck exam: Present normal inspection, full ROM and trachea midline; Absent tenderness Chest Chest inspection: Present normal inspection and symmetric chest wall rise; Absent tenderness Respiratory Respiratory exam: Present normal lung sounds bilaterally; Absent respiratory distress, wheezes, stridor or accessory muscle use Cardiovascular Cardiovascular exam: Present normal rhythm and tachycardia Abdominal Exam Abdominal exam: Present soft and tenderness (Generalized); Absent distention, guarding, rebound or rigidity Extremities Exam Extremities exam: Present normal inspection, full ROM and normal capillary refill; Absent tenderness or edema Back Exam Back exam: Present normal inspection and full ROM; Absent tenderness Neurological Exam Neurological exam: Present alert, oriented X3, CN II-XII intact and normal gait; Absent motor sensory deficit Psychiatric Psychiatric exam: Present normal affect and normal mood Skin Skin exam: Present warm and dry Medical Decision Making <Milagros Clayton, DO - Last Filed: 01/04/24 16:21> Medical Records Medical records reviewed: Yes I reviewed the patient's medical records. Corey Inquiry Pt receiving controlled substance: No Vital Signs: 01/04/24 13:15 Temperature 100.1 F H Temperature Source Oral Pulse Rate [Right Radial] 138 H Respiratory Rate 16 Blood Pressure [Right Arm] 133/72 Blood Pressure Mean [Right Arm] 92 Blood Pressure Source [Right Arm] Automatic Cuff Blood Pressure Position [Right Arm] Sitting 02 Sat by Pulse Oximetry 98 Oxygen Delivery Method Room Air Lab Data Lab results reviewed: Yes I reviewed the patient's lab results. Lab Results 01/04/24 13:30: WBC 8.9 D, RBC 4.71, Hgb 13.0 D, Hct 39.1, MCV 83.0, MCH 27.7, MCHC 33.3, RDW 15.0, Plt Count 247, MPV 9.0, Neut % (Auto) 90.3 H, Lymph % (Auto) 4.2 L, Green % (Auto) 4.7, Eos % (Auto) 0.5, Baso % (Auto) 0.3, Neut # (Auto) 8.0 H, Lymph # (Auto) 0.4 L, Green # (Auto) 0.4, Eos # (Auto) 0.1, Baso # (Auto) 0.0, Total Counted 100, Neutrophils % (Manual) 91 H, Lymphocytes % (Manual) 7 L, Monocytes % (Manual) 2, Platelet Estimate Normal, RBC Morphology Normal, Sodium 134 L, Potassium 3.3 L, Chloride 102, Carbon Dioxide 21 L, Anion Gap 14.3, BUN 10, Creatinine 0.70, Estimated Creat Clear 150, Estimated GFR 105, Est GFR ( Amer) 127, Glucose 121 H, Lactate 2.3 H, Calcium 9.1, Total Bilirubin 2.1 H, AST 26, ALT 29 D, Alkaline Phosphatase 39, Total Protein 6.8, Albumin 4.3 D, Globulin 2.5, Albumin/Globulin Ratio 1.7, Lipase 28, Serum HCG, Qual Negative 01/04/24 14:22: SARS-CoV-2 (PCR) Not detected, Influenza A Untype (PCR) Not detected, Influenza Type B (PCR) Not detected 01/04/24 15:42: Urine Color Yellow, Urine Appearance Sl cloudy, Urine pH 6.0, Ur Specific [place] <= 1.005, Urine Protein Negative, Urine Glucose (UA) Negative, Urine Ketones Negative, Urine Blood Negative, Urine Nitrate Negative, Urine Bilirubin Negative, Urine Urobilinogen 0.2, Ur Leukocyte Esterase 2+ A, Urine RBC None, Urine WBC 3-5, Ur Squamous Epith Cells 3-5, Urine Bacteria 1+ 01/04/24 13:30 01/04/24 13:30 Orders (Tests/Meds): ED MEDICATIONS Generic Name Dose Route Start Last Admin Trade Name Freq PRN Reason Stop Dose Admin Sodium Chloride 10 ml 01/04/24 13:25 Sodium Chloride 0.9% 10ml Flush Syringe IV 02/03/24 13:24 NEEDED PRN Maintain IV Site Discontinued Medications Generic Name Dose Route Start Last Admin Trade Name Freq PRN Reason Stop Dose Admin Acetaminophen 1,000 mg 01/04/24 14:12 01/04/24 14:26 Acetaminophen 1,000mg/100ml Vial IV 01/04/24 14:13 1,000 mg ONCE ONE Administration Lactated Ringer's 500 mls @ 999 mls/hr 01/04/24 13:26 01/04/24 13:29 Lactated Ringer's 1000 Ml Bag IV 01/04/24 13:56 Not Given .Q31M ONE Lactated Ringer's 1,000 mls @ 999 mls/hr 01/04/24 13:29 01/04/24 13:30 Lactated Ringer's 1000 Ml Bag IV 01/04/24 14:29 999 mls/hr .Q1H1M ONE Administration Iopamidol 75 ml 01/04/24 16:21 01/04/24 16:22 Iopamidol-370 (76%);100ml Bottle IV 01/04/24 16:22 75 ml ONCE ONE Administration Ketorolac Tromethamine 15 mg 01/04/24 14:12 01/04/24 14:26 Ketorolac 30mg/Ml Vial IV 01/04/24 14:13 15 mg ONCE ONE Administration Ondansetron HCl 4 mg 01/04/24 14:12 01/04/24 14:26 Ondansetron 4mg/2ml Vial IV 01/04/24 14:13 4 mg ONCE ONE Administration Sodium Chloride 10 ml 01/04/24 16:21 01/04/24 16:22 Sodium Chloride 0.9% 10ml Syr (Rad Only) IV 01/04/24 16:22 10 ml ONCE ONE Administration ORDERS Category Date Time Status CT abdomen pelvis w con Stat Cat Scan 01/04/24 14:53 Completed US RUQ [US abdomen limited] Stat Exams 01/04/24 14:52 Completed Complete Blood Count Auto Diff Stat Lab 01/04/24 13:30 Completed Comprehensive Metabolic Panel Stat Lab 01/04/24 13:30 Completed HCG Qualitative, Serum Stat Lab 01/04/24 13:30 Completed Lactic Acid Follow Up (RFLX 1) Stat Lab 01/04/24 17:34 Ordered Lactic Acid Stat Lab 01/04/24 13:30 Completed Lipase Stat Lab 01/04/24 13:30 Completed Rapid PCR Covid and Flu A/B Stat Lab 01/04/24 14:22 Completed Urinalysis and Microscopic Stat Lab 01/04/24 15:42 Completed Blood Culture Stat Micro 01/04/24 14:02 Received Urine Culture Stat Micro 01/04/24 15:42 Received ECG Data Tracing #1: I reviewed this ECG and interpreted as documented below: Sinus tachycardia with a ventricular rate of [address] changes concerning for ischemia. ECG initial impression date: 01/04/24 ECG initial impression time: 14:20 Medical Decision Narrative: In summary, this patient is a 23-year-old female presenting to the Emergency Department for evaluation of generalized abdominal pain, nausea, and vomiting for the last 3 weeks. Differential diagnoses considered include but are not limited to functional abdominal pain, gastritis, gastroenteritis, colitis, cholecystitis, pancreatitis, cystitis, pyelonephritis. Ruling out the most morbid conditions drove assessment. I reviewed patient's past medical records and noted evaluation here yesterday and in [facility] 4 days ago as per HPI. On exam, the patient is uncomfortable appearing and tachycardic with heart rate in the 130s. She is borderline febrile with a temperature of 100.1 ?F. Vitals are otherwise reassuring. Workup included CBC, CMP, lipase, lactic acid, urinalysis, test, and CT abdomen and pelvis with IV contrast. She was given a bolus of IV fluids as well as IV Toradol, acetaminophen, and Zofran for symptomatic improvement. Labs were obtained that demonstrated slight elevation in bilirubin from previous evaluation yesterday. She also has mild hyponatremia, mild hypokalemia, and mildly low CO2. Lactic acid is mildly elevated 2.3. No significant leukocytosis, however she does have neutrophilic predominance. test is negative. Patient was given a second liter bolus of IV fluids for effective sepsis bolus, and blood cultures were sent. Picture is not clear for sepsis at this time in the absence of leukocytosis or true fever. CT scan is pending. Patient care signed out to incoming provider, Dr. Burks. <Yaya Burks MD - Last Filed: 01/04/24 17:43> Vital Signs: 01/04/24 13:15 Temperature 100.1 F H Temperature Source Oral Pulse Rate [Right Radial] 138 H Respiratory Rate 16 Blood Pressure [Right Arm] 133/72 Blood Pressure Mean [Right Arm] 92 Blood Pressure Source [Right Arm] Automatic Cuff Blood Pressure Position [Right Arm] Sitting 02 Sat by Pulse Oximetry 98 Oxygen Delivery Method Room Air Lab Data Lab Results 01/04/24 13:30: WBC 8.9 D, RBC 4.71, Hgb 13.0 D, Hct 39.1, MCV 83.0, MCH 27.7, MCHC 33.3, RDW 15.0, Plt Count 247, MPV 9.0, Neut % (Auto) 90.3 H, Lymph % (Auto) 4.2 L, Green % (Auto) 4.7, Eos % (Auto) 0.5, Baso % (Auto) 0.3, Neut # (Auto) 8.0 H, Lymph # (Auto) 0.4 L, Green # (Auto) 0.4, Eos # (Auto) 0.1, Baso # (Auto) 0.0, Total Counted 100, Neutrophils % (Manual) 91 H, Lymphocytes % (Manual) 7 L, Monocytes % (Manual) 2, Platelet Estimate Normal, RBC Morphology Normal, Sodium 134 L, Potassium 3.3 L, Chloride 102, Carbon Dioxide 21 L, Anion Gap 14.3, BUN 10, Creatinine 0.70, Estimated Creat Clear 150, Estimated GFR 105, Est GFR ( Amer) 127, Glucose 121 H, Lactate 2.3 H, Calcium 9.1, Total Bilirubin 2.1 H, AST 26, ALT 29 D, Alkaline Phosphatase 39, Total Protein 6.8, Albumin 4.3 D, Globulin 2.5, Albumin/Globulin Ratio 1.7, Lipase 28, Serum HCG, Qual Negative 01/04/24 14:22: SARS-CoV-2 (PCR) Not detected, Influenza A Untype (PCR) Not detected, Influenza Type B (PCR) Not detected 01/04/24 15:42: Urine Color Yellow, Urine Appearance Sl cloudy, Urine pH 6.0, Ur Specific [place] <= 1.005, Urine Protein Negative, Urine Glucose (UA) Negative, Urine Ketones Negative, Urine Blood Negative, Urine Nitrate Negative, Urine Bilirubin Negative, Urine Urobilinogen 0.2, Ur Leukocyte Esterase 2+ A, Urine RBC None, Urine WBC 3-5, Ur Squamous Epith Cells 3-5, Urine Bacteria 1+ Orders (Tests/Meds): ED MEDICATIONS Generic Name Dose Route Start Last Admin Trade Name Freq PRN Reason Stop Dose Admin Sodium Chloride 10 ml 01/04/24 13:25 Sodium Chloride 0.9% 10ml Flush Syringe IV 02/03/24 13:24 NEEDED PRN Maintain IV Site Discontinued Medications Generic Name Dose Route Start Last Admin Trade Name Freq PRN Reason Stop Dose Admin Acetaminophen 1,000 mg 01/04/24 14:12 01/04/24 14:26 Acetaminophen 1,000mg/100ml Vial IV 01/04/24 14:13 1,000 mg ONCE ONE Administration Lactated Ringer's 500 mls @ 999 mls/hr 01/04/24 13:26 01/04/24 13:29 Lactated Ringer's 1000 Ml Bag IV 01/04/24 13:56 Not Given .Q31M ONE Lactated Ringer's 1,000 mls @ 999 mls/hr 01/04/24 13:29 01/04/24 13:30 Lactated Ringer's 1000 Ml Bag IV 01/04/24 14:29 999 mls/hr .Q1H1M ONE Administration Iopamidol 75 ml 01/04/24 16:21 01/04/24 16:22 Iopamidol-370 (76%);100ml Bottle IV 01/04/24 16:22 75 ml ONCE ONE Administration Ketorolac Tromethamine 15 mg 01/04/24 14:12 01/04/24 14:26 Ketorolac 30mg/Ml Vial IV 01/04/24 14:13 15 mg ONCE ONE Administration Ondansetron HCl 4 mg 01/04/24 14:12 01/04/24 14:26 Ondansetron 4mg/2ml Vial IV 01/04/24 14:13 4 mg ONCE ONE Administration Sodium Chloride 10 ml 01/04/24 16:21 01/04/24 16:22 Sodium Chloride 0.9% 10ml Syr (Rad Only) IV 01/04/24 16:22 10 ml ONCE ONE Administration ORDERS Category Date Time Status CT abdomen pelvis w con Stat Cat Scan 01/04/24 14:53 Completed US RUQ [US abdomen limited] Stat Exams 01/04/24 14:52 Completed Complete Blood Count Auto Diff Stat Lab 01/04/24 13:30 Completed Comprehensive Metabolic Panel Stat Lab 01/04/24 13:30 Completed HCG Qualitative, Serum Stat Lab 01/04/24 13:30 Completed Lactic Acid Follow Up (RFLX 1) Stat Lab 01/04/24 17:34 Ordered Lactic Acid Stat Lab 01/04/24 13:30 Completed Lipase Stat Lab 01/04/24 13:30 Completed Rapid PCR Covid and Flu A/B Stat Lab 01/04/24 14:22 Completed Urinalysis and Microscopic Stat Lab 01/04/24 15:42 Completed Blood Culture Stat Micro 01/04/24 14:02 Received Urine Culture Stat Micro 01/04/24 15:42 Received Medical Decision Narrative: In summary, this patient is a 23-year-old female presenting to the Emergency Department for evaluation of generalized abdominal pain, nausea, and vomiting for the last 3 weeks. Differential diagnoses considered include but are not limited to functional abdominal pain, gastritis, gastroenteritis, colitis, cholecystitis, pancreatitis, cystitis, pyelonephritis. Ruling out the most morbid conditions drove assessment. I reviewed patient's past medical records and noted evaluation here yesterday and in [facility] 4 days ago as per HPI. On exam, the patient is uncomfortable appearing and tachycardic with heart rate in the 130s. She is borderline febrile with a temperature of 100.1 ?F. Vitals are otherwise reassuring. Workup included CBC, CMP, lipase, lactic acid, urinalysis, test, and CT abdomen and pelvis with IV contrast. She was given a bolus of IV fluids as well as IV Toradol, acetaminophen, and Zofran for symptomatic improvement. Labs were obtained that demonstrated slight elevation in bilirubin from previous evaluation yesterday. She also has mild hyponatremia, mild hypokalemia, and mildly low CO2. Lactic acid is mildly elevated 2.3. No significant leukocytosis, however she does have neutrophilic predominance. test is negative. Patient was given a second liter bolus of IV fluids for effective sepsis bolus, and blood cultures were sent. Picture is not clear for sepsis at this time in the absence of leukocytosis or true fever. CT scan is pending. Patient care signed out to incoming provider, Dr. Burks. Kimmie: I assumed primary responsibility for this patient after signout from previous physician. No leukocytosis, but neutrophilia. Lactate 2.3, bilirubin elevated at 2.1, LFTs otherwise normal. UA with concern for UTI with leukocyte Estrace, bacteria. Independent interpretation of right upper quadrant ultrasound with concern for cholelithiasis without cholecystitis. CT of the abdomen and pelvis with nondescript fluid-filled loops of bowel concerning for enteritis. On my evaluation, patient feeling much better, abdominal exam is benign, sleeping comfortably and upon awakening, states that she also feels better. She has been having nausea and diarrhea this nonbloody. I feel is likely represents enteritis, dehydration, and resultant UTI. I told her I cannot rule out intermittent symptomatic cholelithiasis and this should warrant outpatient surgery evaluation, she is agreeable to this. Because patient at baseline without signs or symptoms of clinical decompensation, deemed appropriate for discharge. Results were relayed to patient who voiced understanding and were agreeable to outpatient management and follow up. I discussed my clinical impression with patient and answered all questions. At this time, the evidence for any other entities in the differential is insufficient to warrant any further testing or ED observation. This was explained as well. Advisory was given that persistent or worsening symptoms require further evaluation. I confirmed the understanding of this discussion. Critical Care <Milagros Clayton, DO - Last Filed: 01/04/24 16:21> Critical Care Time Critical Care Time: No
--- NOTE | 2024-01-04 14:41 | PC.NURSE ---
ROUNDED ON PT, UPDATED AT THIS TIME. CALL LIGHT WITHIN REACH
--- NOTE | 2024-01-04 14:52 | US_ITS ---
FINAL REPORT CLINICAL HISTORY: abd pain/n/v, elevated bilirubin COMPARISON: None FINDINGS: Sonographic images of the right upper quadrant were obtained. The pancreas is partially obscured.The liver has an unremarkable appearance. Multiple objects are noted in the gallbladder, some appear to represent nondependent polyps without shadowing and others appear to represent dependent shadowing stones. There is no evidence of biliary ductal dilatation.The common duct measures 3 mm. Limited images of the right kidney are unremarkable. IMPRESSION: Multiple gallstones and gallbladder polyps. Reviewed, Interpreted and Dictated by Van Huang MD Transcribed by Rox Becker Authenticated and . [facility]
--- NOTE | 2024-01-04 14:53 | CT_ITS ---
FINAL REPORT TECHNIQUE: After the administration of intravenous contrast, axial images were obtained through the abdomen and pelvis by computed tomography. The study was performed with techniques to keep radiation dose as low as reasonably achievable, (ALARA). Individual dose reduction techniques using automated exposure control or adjustment of mA and/or kV according to the patient's size were employed. CLINICAL HISTORY: gen abd pain/n/v COMPARISON: None FINDINGS: Abdomen: There is mild atelectasis present in the lung bases. The liver parenchyma is homogeneous. The gallbladder is present. The spleen, pancreas, adrenals and kidneys appear unremarkable. The aorta is normal in caliber. There is no free fluid or adenopathy. There are multiple fluid-filled loops of small bowel, nonspecific. Pelvis: The appendix is normal in appearance. The urinary bladder is unremarkable. A trace amount of fluid is present in the pelvis, probably physiologic. IMPRESSION: Multiple nonspecific fluid-filled loops of small bowel. Trace fluid present in the pelvis, probably physiologic. Reviewed, Interpreted and Dictated by Van Huang MD Transcribed by Radha Kirk Authenticated and . [facility]
--- NOTE | 2024-01-04 15:00 | PC.NURSE ---
pt transported to ultrasound via wheelchair
[2024-01-04 15:50] LABS: Microscopic, Urine URINE MICROSCOPIC (MICROSCOPIC)
[2024-01-04 16:01] LABS: Appearance,Urine SL CLOUDY (Clear); Bilirubin,Urine Negative (Negative); Blood, Urine Negative (Negative); Color,Urine YELLOW (Yellow); Glucose,Urine (UA) Negative (Negative); Ketones,Urine Negative (Negative); Leukocyte Esterase,Urine 2+ (Negative); Nitrate,Urine Negative (Negative); Protein,Urine Negative (Negative); Specific Gravity, Urine <= 1.005 (1.005-1.030); Urobilinogen,Urine 0.2 EU/dl (0.2)
[2024-01-04 16:17] LABS: Bacteria,Urine 1+ /lpf
[2024-01-04] MEDS: SODIUM CHLORIDE 0.9% 10ML SYR (RAD ONLY) 10 ML IV (16:22)
[2024-01-04] MEDS: IOPAMIDOL-370 (76%);100ML BOTTLE 75 ML IV (16:22)
[2024-01-04 17:34] LABS: Reflex Lactic Add Lactic Reflex
--- NOTE | 2024-01-04 17:36 | PC.NURSE ---
Dr. Burks at BS to update pt on results and POC
[2024-01-04] MEDS: NITROFURANTOIN 100MG CAPSULE 100 MG PO (17:50)
[2024-01-04 17:55] VITALS: BP 128/72; PULSE 100; RESP 16; TEMP 36.8; O2SAT 98
[2024-01-04 18:19] LABS: Lactic Acid Follow Up (RFLX 1) 0.9 mmol/L (0.7-2.1)
== END 2024-01-04 17:56 | disposition home or self-care (01) ==
PROVIDERS: Emergency Medicine; Emergency Provider Emergency Medicine; PCP Internal Medicine Adolescent Medicine
DX: R10.84 Generalized abdominal pain (principal); N39.0 Urinary tract infection, site not specified; B96.89 Other specified bacterial agents as the cause of diseases classified elsewhere; R00.0 Tachycardia, unspecified; K52.9 Noninfective gastroenteritis and colitis, unspecified; K80.20 Calculus of gallbladder without cholecystitis without obstruction; E86.0 Dehydration; E87.6 Hypokalemia; E87.1 Hypo-osmolality and hyponatremia
CPT/HCPCS: 36415; 74177; 76705; 80053; 81001; 83605; 83690; 84703; 85007; 85025; 87040; 87086; 87636; 93005; 96361; 96374; 96375; 99285; J0131; J2405; J7120; Q9967

== ENCOUNTER 2024-01-07 15:46 | Outpatient (CLI) | payer OTHER, SELFPAY ==
--- NOTE | 2024-01-07 15:47 | US_ITS ---
PROCEDURE: US TRANSVAGINAL CLINICAL INDICATION: abdominal pain COMPARISON: CT CT ABDOMEN PELVIS W CON from 01/04/2024 US US ABDOMEN LIMITED from 01/04/2024 FINDINGS: Transvaginal sonographic images of the pelvis were obtained. UTERUS: 9.5 cm x 6.8 cmx 5.4cm anteverted with a combined endometrial thickness of 20.4mm. LEFT OVARY: 4.8 cmx2.0cmx2.3cm with a volume of 11.6ml. There is a dominant follicle in the left ovary measuring 1.1 cm x 1.8 cm x 1.8 cm. There are multiple small peripheral follicles consistent with a polycystic ovary. RIGHT OVARY: 1.6 cmx 2.5 cmx3.4cm with a volume of 6.8ml. There are multiple small peripheral follicles consistent with a polycystic ovary. Both ovaries are seen and appear normal. Doppler flow to both ovaries are seen. There is moderate fluid in the cul-de-sac. IMPRESSION: 1. Anteverted uterus, bulky in size and normal in shape. The endometrium is markedly thickened at 20.4 mm. 2. Both ovaries are seen and appear polycystic. There is a 1.8 cm follicle on the left ovary. 3. There is moderate fluid in the cul-de-sac. Dictated by: Benjamin Preston MD 01/08/2024 07:31 Benjamin Preston MD in OV 01/08/2024 07:31
== END 2024-01-07 23:59 | disposition home or self-care (01) ==
LOC: RAD 15:47
PROVIDERS: PCP Internal Medicine Adolescent Medicine; Visit Provider Obstetrics & Gynecology
DX: R10.9 Unspecified abdominal pain (principal)
CPT/HCPCS: 76830

== ENCOUNTER 2024-01-24 07:28 | Outpatient (CLI) | payer OTHER, SELFPAY ==
--- NOTE | 2024-01-24 07:28 | CT_ITS ---
FINAL REPORT TECHNIQUE: After the administration of intravenous contrast, axial images were obtained through the abdomen and pelvis by computed tomography. This study was performed with technique to keep radiation doses as low as reasonably achievable, (ALARA). Individualized dose reduction techniques using automated exposure control or adjustment of the MA and/or KV according to the patient's size were employed. CLINICAL HISTORY: all over abdominal pain COMPARISON: 01/04/2024 FINDINGS: Abdomen: The lung bases demonstrate a trace right pleural effusion. The liver is normal in size and attenuation. Gallbladder is contracted. The spleen is unremarkable. The adrenals are normal. The pancreas is unremarkable. The kidneys enhance appropriately. The aorta is normal in caliber. There is no free fluid or adenopathy. There is no evidence of bowel obstruction. Pelvis: The appendix is normal. Uterus is mildly heterogeneous may be related to small fibroids. Ovaries are normal. The urinary bladder is unremarkable. There is no free fluid or adenopathy. IMPRESSION: No acute intra-abdominal process. Reviewed, Interpreted and Dictated by Gerry Madsen MD Transcribed by Thuy Casey Authenticated and [facility]
[2024-01-24] MEDS: SODIUM CHLORIDE 0.9% 10ML SYR (RAD ONLY) 10 ML IV (07:47)
[2024-01-24] MEDS: BARIUM SULFATE(READI-CAT2);450ML BOTTLE 450 ML PO (07:47)
[2024-01-24] MEDS: IOPAMIDOL-370 (76%);100ML BOTTLE 75 ML IV (07:47)
== END 2024-01-24 23:59 | disposition home or self-care (01) ==
LOC: RAD 07:28
PROVIDERS: PCP Internal Medicine Adolescent Medicine; Visit Provider Surgery
DX: R10.84 Generalized abdominal pain (principal)
CPT/HCPCS: 74177; Q9967

== ENCOUNTER 2024-02-09 17:42 | Emergency (ER) | payer OTHER, SELFPAY ==
[2024-02-09 17:45] VITALS: BP 119/81; PULSE 63; RESP 20; TEMP 36.9; O2SAT 99; BMI 30.2
--- NOTE | 2024-02-09 17:53 | XR_ITS ---
PROCEDURE INFORMATION: Exam: XR Right Hand Exam date and time: 02/09/2024 6:00 PM Age: 23 years old Clinical indication: Pain; Hand; Right TECHNIQUE: Imaging protocol: Radiologic exam of the right hand. Views: 3 or more views. COMPARISON: CR XR WRIST RT MIN 3V 02/09/2024 6:00 PM FINDINGS: Bones/joints: Normal. Soft tissues: Normal. IMPRESSION: No acute findings.
--- NOTE | 2024-02-09 17:53 | XR_ITS ---
PROCEDURE INFORMATION: Exam: XR Right Wrist Exam date and time: 02/09/2024 6:00 PM Age: 23 years old Clinical indication: Pain; Wrist; Right TECHNIQUE: Imaging protocol: Radiologic exam of the right wrist. Views: 3 or more views. COMPARISON: CR XR WRIST RT MIN 3V 01/12/2020 8:03 PM FINDINGS: Bones/joints: Normal. Soft tissues: Mild soft tissue swelling of the dorsal wrist soft tissues. IMPRESSION: Mild soft tissue swelling of the dorsal wrist soft tissues. If there is high clinical suspicion for occult scaphoid fracture recommend conservative immobilization and follow-up radiographs in 10-14 days.
--- NOTE | 2024-02-09 18:20 | ED_ITS ---
Discharge Plan Disposition Patient Disposition: Home, Self-Care Condition: Good Prescriptions Prescriptions: New ibuprofen 800 mg tablet 800 mg PO TID PRN (Reason: pain) Qty: 30 0RF Referrals Follow up/Referrals: Rusty Martinez DO [Staff Physician] - See instructions Julio Schmitz MD [Primary Care Provider] - See instructions Activity Restrictions/Add. Instructions Additional Instructions/Restrictions: Follow up with ortho. Take Ibuprofen as needed for pain. Ice therapy 3 times a day for 20 minutes at a time. Clinical Impressions Clinical Impression: Occult fracture of scaphoid bone of right wrist Instructions Patient Instructions: Wrist Fracture Discharge ED Provider: Madeline Ma [facility] [place] General Stated complaint: right hand pain Mode of Arrival: Ambulatory Source of Information: Patient Limitations: No Limitations Time Seen by Provider: 02/09/24 18:17 Description of Symptoms (Recalled from Triage Doc. by RN): PATIENT C/O PAIN TO RIGHT WRIST AFTER PULL-STARTING A 4-RAMIREZ YESTERDAY HEENT Symptoms (Recalled from RN notes): No Resp Symptoms (Recalled from RN notes): No Skin Symptoms (Recalled from RN notes): No MS Symptoms (Recalled from RN notes): Yes Functional Status (Recalled from RN notes): WNL History of Present Illness Provider Complaint: Pt reports that she was trying to pull start her 4 ramirez and it snapped back and she heard a loud pop and had immediate pain in her hand and wrist. Related Data Previous Rx's Medication Instructions Recorded ibuprofen 800 mg tablet 800 mg PO TID PRN pain #30 tabs 02/09/24 Allergies Allergy/AdvReac Type Severity Reaction Status Date / Time Penicillins Allergy Severe Anaphylaxis Verified 01/25/24 10:32 povidone-iodine AdvReac Mild Itching Verified 01/25/24 10:32 [From Betadine] soap [From Betadine] AdvReac Mild Itching Verified 01/25/24 10:32 Worker's Comp Is this a Worker's Comp case?: No [facility] Disclaimer: The information contained in this section may have been updated after the patient was seen, as this information can be updated by other users. Medical History Irregular periods Dysmenorrhea Abnormal uterine bleeding (AUB) Status post normal vaginal delivery Gestational hypertension Rh negative state in antepartum period History of PCOS History of ankle fracture Surgical History History of ankle surgery [place] teeth extracted H/O adenoidectomy Hx of tonsillectomy Family History Other Diabetes Heart attack Hyperlipidemia Hypertension Thyroid disorder Social History Smoking Status: Never smoker second hand exposure: No alcohol intake: never substance use type: denies use current occupational status: unemployed Travel in the last 8 weeks: None current occupational exposures/hazards: No caffeine: Yes ROS Obtained: Yes All systems reviewed & no additional complaints except as documented Constitutional Constitutional: Reports system reviewed and no additional complaints, except as documented Eyes Eyes: Reports system reviewed and no additional complaints, except as documented ENT Ears, Nose, Mouth, and Throat: Reports system reviewed and no additional complaints, except as documented Cardiovascular Cardiovascular: Reports system reviewed and no additional complaints, except as documented Respiratory Respiratory: Reports system reviewed and no additional complaints, except as documented Gastrointestinal Gastrointestingal: Reports system reviewed and no additional complaints, except as documented Genitourinary Female Genitourinary: Reports system reviewed and no additional complaints, except as documented Musculoskeletal Musculoskeletal: Reports system reviewed and no additional complaints, except as documented, Reports arthralgias, Reports joint swelling and Reports small joint pain in the hands Integumentary/Breasts Skin/Breast: Reports system reviewed and no additional complaints, except as documented Neurologic Neurologic: Reports system reviewed and no additional complaints, except as documented Endocrine Endocrine: Reports system reviewed and no additional complaints, except as documented Hematologic/Lymphatic Henatologic/Lymphatic: Reports system reviewed and no additional complaints, except as documented Allergic/Immunologic Allergic/Immunologic: Reports system reviewed and no additional complaints, except as documented Physical Exam General General appearance: alert and in no apparent distress Head Head exam: atraumatic and normocephalic Eye Eye exam: Present normal appearance ENT ENT exam: Present normal exam and normal oropharynx Neck Neck exam: Present normal inspection Chest Chest inspection: Present normal inspection and symmetric chest wall rise Respiratory Respiratory exam: Present normal lung sounds bilaterally Cardiovascular Cardiovascular exam: Present regular rate, normal rhythm and normal heart sounds Abdominal Exam Abdominal exam: Present soft and normal bowel sounds Expanded Upper Extremity Exam Right: Forearm/Wrist exam: Present tenderness and swelling Hand exam: Present tenderness Hand L/R back image: 2 1. pain with movement and palpitation Neuromotor exam: Normal thumb adduction Vascular exam: Normal capillary refill, radial pulse and ulnar pulse Back Exam Back exam: Present normal inspection Neurological Exam Neurological exam: Present alert and oriented X3 Psychiatric Psychiatric exam: Present normal affect and normal mood Skin Skin exam: Present warm, dry and intact Medical Decision Making Corey Inquiry Pt receiving controlled substance: No Corey was queried for this patient: No Vital Signs: 02/09/24 17:45 Temperature 98.5 F Temperature Source Oral Pulse Rate [Left Brachial] 63 Respiratory Rate 20 Blood Pressure [Left Arm] 119/81 Blood Pressure Mean [Left Arm] 93 Blood Pressure Source [Left Arm] Automatic Cuff Blood Pressure Position [Left Arm] Sitting 02 Sat by Pulse Oximetry 99 Oxygen Delivery Method Room Air Orders (Tests/Meds): ORDERS Category Date Time Status Wrist XR right minimum 3 views [XR wrist RT min 3V] Exams 02/09/24 17:53 Taken Stat XR hand RT min 3V Stat Exams 02/09/24 17:53 Taken Radiology Data #1: Image(s): Wrist FINDINGS: Bones/joints: Normal. Soft tissues: Mild soft tissue swelling of the dorsal wrist soft tissues. IMPRESSION: Mild soft tissue swelling of the dorsal wrist soft tissues. If there is high clinical suspicion for occult scaphoid fracture recommend conservative immobilization and follow-up radiographs in 10-14 days. #2: Image(s): Hand Image Reviewed: Yes I have reviewed radiologist's interpretation Preliminary Findings: Normal/NAD FINDINGS: Bones/joints: Normal. Soft tissues: Normal. IMPRESSION: No acute findings.
[2024-02-09 19:13] VITALS: BP 119/81; PULSE 63; RESP 20; TEMP 36.9; O2SAT 99
== END 2024-02-09 19:15 | disposition home or self-care (01) ==
PROVIDERS: Emergency Provider Nurse Practitioner Family; PCP Internal Medicine Adolescent Medicine
DX: S62.001A Unspecified fracture of navicular [scaphoid] bone of right wrist, initial encounter for closed fracture (principal); M79.641 Pain in right hand; W22.8XXA Striking against or struck by other objects, initial encounter
CPT/HCPCS: 73110; 73130; 99212; 99214; G0463

== ENCOUNTER 2024-02-24 10:09 | Outpatient (CLI) | payer OTHER, SELFPAY ==
--- NOTE | 2024-02-24 10:10 | US_ITS ---
PROCEDURE: US TRANSVAGINAL CLINICAL INDICATION: Uterus us bulky, history of endometriosis COMPARISON: CT CT ABDOMEN PELVIS W CON from 01/04/2024 FINDINGS: Transvaginal sonographic images of the pelvis were obtained. UTERUS: 8.5 cm x 6.7 cmx 4.3cm anteverted with a combined endometrial thickness of 7.9mm. LEFT OVARY: 3.6 cmx 1.8 cmx2.4cm with a volume of 8ml. The left ovary has a polycystic appearance with multiple small peripheral follicles. RIGHT OVARY: 3.3cmx 1.8 cmx1.9 cm with a volume of 5.8ml. The right ovary has a polycystic appearance with multiple small peripheral follicles. Both ovaries are seen and appear polycystic. Doppler flow to both ovaries are seen. There is moderate fluid in the cul-de-sac. IMPRESSION: 1. Anteverted uterus normal in shape and somewhat bulky in size. The endometrium is normal. 2. Both ovaries are seen and appear polycystic. 3. There is moderate fluid in the cul-de-sac. Dictated by: Benjamin Preston MD 02/24/2024 11:29 Benjamin Preston MD in OV 02/24/2024 11:29
== END 2024-02-24 23:59 | disposition home or self-care (01) ==
LOC: RAD 10:10
PROVIDERS: PCP Internal Medicine Adolescent Medicine; Visit Provider Obstetrics & Gynecology
DX: R10.84 Generalized abdominal pain (principal); N93.9 Abnormal uterine and vaginal bleeding, unspecified; N85.2 Hypertrophy of uterus; Z87.42 Personal history of other diseases of the female genital tract
CPT/HCPCS: 76830

== ENCOUNTER 2024-03-07 08:25 | Outpatient (CLI) | payer OTHER, SELFPAY ==
--- NOTE | 2024-03-07 08:25 | MR_ITS ---
FINAL REPORT CLINICAL HISTORY: Rt Wrist pain since february 07 COMPARISON: None FINDINGS: Multi planar MR imaging of the right wrist was performed after the intra-articular injection of dilute gadolinium contrast. Contrast is seen throughout the wrist joint space. There is a large amount of extravasation of contrast along the dorsum of the wrist. The triangular fibrocartilage complex is intact. The scapholunate ligament is normal in appearance. The flexor and extensor tendons appear unremarkable. IMPRESSION: No evidence of tendinous or ligamentous injury. The triangular fibrocartilage complex is intact. Reviewed, Interpreted and Dictated by Van Huang MD Transcribed by Radha Kirk Authenticated and [facility]
--- NOTE | 2024-03-07 08:25 | IR_ITS ---
FINAL REPORT CLINICAL HISTORY: Rt Wrist pain ft- 1.33 dose- 65.19 FINDINGS: Arthrogram Right wrist injection for MRI arthrogram HISTORY: Right wrist pain. PROCEDURE: After informed consent was obtained, a time-out was performed. Utilizing local anesthesia and sterile technique, with direct fluoroscopic guidance, access to the joint was obtained . A small amount of contrast was injected to confirm needle tip location. Additional gadolinium contrast was injected. IMPRESSION: Status post injection for MRI arthrogram without immediate complication. Please see MRI report. Fluoroscopy time: 1 minute 33 seconds Radiation exposure in Reference air Kerma: 65.19 mGy Films reviewed , interpreted and dictated by Dr. Huang. Transcribed by Justin Howell PA-C. Reviewed, Interpreted and Dictated by Van Huang MD Transcribed by NATHAN Blood Authenticated and [facility]
== END 2024-03-07 23:59 | disposition home or self-care (01) ==
LOC: RAD 08:25
PROVIDERS: PCP Internal Medicine Adolescent Medicine; Visit Provider Orthopaedic Surgery
DX: M25.531 Pain in right wrist (principal); S62.001A Unspecified fracture of navicular [scaphoid] bone of right wrist, initial encounter for closed fracture; S69.81XA Other specified injuries of right wrist, hand and finger(s), initial encounter
CPT/HCPCS: 73115; 73222; A9576; Q9967

== ENCOUNTER 2024-03-22 16:48 | Outpatient (CLI) | payer OTHER, SELFPAY ==
[2024-03-22 18:16] LABS: HCG,Quantitative 51 mIU/ml (0-5.42)
[2024-03-24 09:10] LABS: Progesterone 14.7 ng/mL (.)
== END 2024-03-22 23:59 | disposition home or self-care (01) ==
LOC: LAB 16:49
PROVIDERS: PCP Internal Medicine Adolescent Medicine; Visit Provider Obstetrics & Gynecology
DX: N92.6 Irregular menstruation, unspecified (principal)
CPT/HCPCS: 36415; 84144; 84702

== ENCOUNTER 2024-03-24 12:04 | Outpatient (CLI) | payer OTHER, SELFPAY ==
[2024-03-24 13:25] LABS: HCG,Quantitative 48 mIU/ml (0-5.42)
== END 2024-03-24 23:59 | disposition home or self-care (01) ==
LOC: LAB 12:05
PROVIDERS: PCP Internal Medicine Adolescent Medicine; Visit Provider Obstetrics & Gynecology
DX: N92.6 Irregular menstruation, unspecified (principal)
CPT/HCPCS: 36415; 84702

== ENCOUNTER 2024-03-31 11:05 | Outpatient (CLI) | payer OTHER, SELFPAY ==
[2024-03-31 12:59] LABS: HCG,Quantitative 553 mIU/ml (0-5.42)
== END 2024-03-31 23:59 | disposition home or self-care (01) ==
LOC: LAB 11:06
PROVIDERS: PCP Internal Medicine Adolescent Medicine; Visit Provider Obstetrics & Gynecology
DX: Z34.90 Encounter for supervision of normal pregnancy, unspecified, unspecified trimester (principal)
CPT/HCPCS: 36415; 84702

== ENCOUNTER 2024-04-03 15:01 | Outpatient (CLI) | payer OTHER, SELFPAY ==
[2024-04-03 15:50] LABS: HCG,Quantitative 2117 mIU/ml (0-5.42)
== END 2024-04-03 23:59 | disposition home or self-care (01) ==
LOC: LAB 15:01
PROVIDERS: PCP Internal Medicine Adolescent Medicine; Visit Provider Obstetrics & Gynecology
DX: Z34.90 Encounter for supervision of normal pregnancy, unspecified, unspecified trimester (principal)
CPT/HCPCS: 36415; 84702

== ENCOUNTER 2024-04-27 09:16 | Outpatient (CLI) | payer OTHER, SELFPAY ==
[2024-04-27 09:33] LABS: Basophils # 0.1 K/mm3 (0-0.2); Basophils % 0.4 % (0.1-2.0); Eosinophils # 0.1 K/mm3 (0.0-0.4); Hematocrit 38.7 % (37.0-47.0); Hemoglobin 12.8 g/dL (12.2-16.2); Lymphocytes % 16.7 % (10-50); Mean Corpuscular HGB Conc 33.1 g/dL (31.8-35.4); Mean Corpuscular Hemoglobin 27.8 pg (27.0-31.2); Mean Platelet Volume 8.6 fl (7.4-10.4); Monocytes # 0.4 K/mm3 (0.1-1.0); Neutrophils # 9.5 K/mm3 (1.8-7.8); Platelet Count 351 K/mm3 (142-424); Red Blood Count 4.61 M/mm3 (4.20-5.40); White Blood Count 12.1 K/mm3 (4.8-10.8)
[2024-04-27 12:40] LABS: HIV (1&2) Antibody Rapid NONREACTIVE (NONREACTIVE)
[2024-04-28 05:13] LABS: HCV Ab Non Reactive (Non Reactive); Hepatitis B Surface Antigen Negative (Negative)
[2024-04-28 07:35] LABS: Rubella Antibodies, IgG 2.51 index (Immune >0.99)
[2024-04-28 13:32] LABS: Rapid Plasma Reagin Ab Titer Non Reactive titer (NonRea<1:1)
== END 2024-04-27 23:59 | disposition home or self-care (01) ==
LOC: LAB 09:17
PROVIDERS: PCP Internal Medicine Adolescent Medicine; Visit Provider Obstetrics & Gynecology
DX: Z34.90 Encounter for supervision of normal pregnancy, unspecified, unspecified trimester (principal)
CPT/HCPCS: 36415; 85025; 86593; 86762; 86803; 86850; 87086; 87340; 87389

== ENCOUNTER 2024-06-29 05:20 | Observation (INO) | payer OTHER, SELFPAY ==
[2024-06-29] VITALS (7 sets, daily range): BP systolic 112–133; BP diastolic 64–90; PULSE 110–139; RESP 18–20; TEMP 36.5–37.8; O2SAT 96–99; BMI 30.3; BMI 31.1
--- NOTE | 2024-06-29 05:39 | ED_ITS ---
Discharge Plan Disposition Patient Disposition: Admitted Chief Complaint: Back Pain/Injury Prescriptions Prescriptions: No Action aspirin 81 mg tablet,chewable 81 mg PO DAILY Classic 28 mg iron- 800 mcg tablet 1 tab PO DAILY ondansetron 4 mg tablet,disintegrating 4 mg PO Q8H Qty: 30 1RF Referrals Follow up/Referrals: Julio Schmitz MD [Primary Care Provider] - See instructions Clinical Impressions Clinical Impression: Abdominal pain affecting , Back pain affecting , Influenza A Instructions Patient Instructions: DI for Low Back Pain Print Language Print Language: Hebrew Discharge ED Provider: Sola Milton General Adult HPI <Sola Milton MD - Last Filed: 06/29/24 06:58> General Chief complaint: Back Pain/Injury Stated complaint: lower back, abd pain, 18 wks antepartum Time Seen by Provider: 06/29/24 05:23 Mode of Arrival: Ambulatory Source of Information: Patient Limitations: No Limitations Description of Symptoms (Recalled from ER Triage Doc. by RN): Pt c/o back pain X2 days, lower abd pain since 2 am. denies any other complaints. pt reports + , approx 18 weeks. . Last tylenol @ 2300 last night History of Present Illness HPI narrative: 23-year-old female G2, P1 approximately 18 weeks presents to the ER with complaints of back pain for 2 days and lower abdominal pain since 2 AM. Patient reports her pain started 2 days ago in her midline mid back. She states since that time the pain is gradually moved down into her low back but remained midline. She states this evening it started to concentrate in her right lower quadrant. She is not having any nausea, vomiting, constipation, diarrhea, dysuria, or hematuria. She has no history of kidney stones. Patient does not report pain in the left or right flank, she states her back pain has been midline. She denies cholecystectomy or appendectomy, she reports she is taken Tylenol, 1000 mg total in the last 24 hours, most recent at 11 PM, over 6 hours prior to arrival. Patient reports her pain does improve with Tylenol but then gradually comes back. She describes her pain as a constant sharp pain, it is not colicky, it does not wax and wane. She describes as an 8 out of 10. She reports she always keeps a UTI when . She states she has no urinary symptoms but typically does not get urinary symptoms. She does not have chest pain, difficulty breathing, headache, dizziness, numbness, tingling, weakness, sore throat, runny nose, or other associated symptoms. Related Data Home Medications ?Medication ?Instructions ?Recorded ?Confirmed aspirin 81 mg chewable tablet 81 mg PO DAILY 05/26/24 05/26/24 vits no.126-ferrous fum 1 tab PO DAILY 05/26/24 05/26/24 28 mg iron-folic acid 800 mcg tablet (Classic ) Previous Rx's ?Medication ?Instructions ?Recorded ondansetron 4 mg disintegrating 4 mg PO Q8H #30 tabs 05/31/24 tablet Allergies Allergy/AdvReac Type Severity Reaction Status Date / Time Penicillins Allergy Severe Anaphylaxis Verified 06/22/24 14:57 povidone-iodine (From AdvReac Mild Itching Verified 06/22/24 14:57 Betadine) soap (From Betadine) AdvReac Mild Itching Verified 06/22/24 14:57 PFS <Sola Milton MD - Last Filed: 06/29/24 06:58> PFS Disclaimer: The information contained in this section may have been updated after the patient was seen, as this information can be updated by other users. Medical History (Updated 06/29/24 @ 09:24 by Brando Woodward MD) Headache Rh negative state in antepartum period Nausea and vomiting of , antepartum History of gestational hypertension PCOS (polycystic ovarian syndrome) Irregular periods Dysmenorrhea Abnormal uterine bleeding (AUB) Status post normal vaginal delivery Gestational hypertension History of PCOS History of ankle fracture Surgical History History of ankle surgery Siler teeth extracted H/O adenoidectomy Hx of tonsillectomy Family History Other Diabetes Heart attack Hyperlipidemia Hypertension Thyroid disorder Social History Smoking Status: Never smoker second hand exposure: No alcohol intake: never substance use type: denies use current occupational status: unemployed Travel in the last 8 weeks: None current occupational exposures/hazards: No caffeine: Yes Other Medical History Have you received the Flu Vaccine for this season: No Have you received the Pneumonia Vaccine: No <Sola Milton MD - Last Filed: 06/29/24 06:58> ROS Obtained: Yes Systems reviewed as appropriate & no additional complaints except as documented ROS per HPI Physical Exam <Sola Milton MD - Last Filed: 06/29/24 06:58> General General appearance: alert and in no apparent distress Head Head exam: atraumatic and normocephalic Eye Eye exam: Present PERRL and EOMI ENT ENT exam: Present mucous membranes moist Neck Neck exam: Present normal inspection and full ROM Chest Chest inspection: Present symmetric chest wall rise Respiratory Respiratory exam: Present normal lung sounds bilaterally; Absent respiratory distress, wheezes or stridor Cardiovascular Cardiovascular exam: Present regular rate, normal rhythm and tachycardia (Mild on exam heart rate 110-120) Abdominal Exam Abdominal exam: Present soft, tenderness (Mild right lower quadrant tenderness) and other (Gravid abdomen with palpable uterus below umbilicus); Absent distention, guarding, rebound or rigidity Extremities Exam Extremities exam: Present full ROM and normal capillary refill; Absent edema Back Exam Back exam: Present tenderness (Diffuse tenderness of the back both midline and in the paraspinal muscles), CVA tenderness (R), CVA tenderness (L) and other (Patient reports bilateral CVA tenderness but has tenderness with percussion throughout the back, no deformity or step-off, no findings of trauma) Neurological Exam Neurological exam: Present alert, oriented X3 and normal gait; Absent motor sensory deficit Psychiatric Psychiatric exam: Present normal affect and normal mood Skin Skin exam: Present warm and dry Medical Decision Making <Sola Milton MD - Last Filed: 06/29/24 06:58> Medical Records Medical records reviewed: Yes I reviewed the patient's medical records. Screening: Per USPSTF and CDC recommendations, given the prevalence of disease in our region, it is our hospital?s policy to screen for HIV and viral Hepatitis for all patients aged 18 and over and those with ongoing risk factors. MR Comment: Most recent OB no from 06/22/2024 demonstrates patient was 17 weeks and 1 day at that time reporting headache for about 1 week, Dr. Bailey recommended mag oxide and increased water intake. Plan for anatomy scan upcoming (07/14). Reviewed previous urine culture from April 2024 which did not demonstrate findings of infection, had multiple organisms concerning for contamination. UA at that time negative for findings of infection, only small leukocyte esterase present. Initial sonogram demonstrated 2 gestational sacs, 1 was empty, other with live intrauterine and heart rate 177. Corey Inquiry Pt receiving controlled substance: No Vital Signs: 06/29/24 05:21 06/29/24 05:34 Temperature 100.1 F H Temperature Source Oral Pulse Rate 123 H Pulse Rate [Apical] 139 H Respiratory Rate 20 18 Blood Pressure 118/71 Blood Pressure [Right Arm] 116/90 Blood Pressure Mean [Right Arm] 98 02 Sat by Pulse Oximetry 98 96 Oxygen Delivery Method Room Air Room Air Lab Data Lab Results 06/29/24 05:31: WBC 9.6, RBC 4.45, Hgb 12.6, Hct 36.6 L, MCV 82.2, MCH 28.3, MCHC 34.5, RDW 14.8, Plt Count 283, MPV 8.4, Neut % (Auto) 88.7 H, Lymph % (Auto) 5.3 L, [place] % (Auto) 5.3, Eos % (Auto) 0.3, Baso % (Auto) 0.5, Neut # (Auto) 8.5 H, Lymph # (Auto) 0.5 L, [place] # (Auto) 0.5, Eos # (Auto) 0.0, Baso # (Auto) 0.1, Total Counted 100, Neutrophils % (Manual) 89 H, Lymphocytes % (Manual) 6 L, Monocytes % (Manual) 5, RBC Morphology Normal, Stomatocytes 1+, S odium 133 L, Potassium 3.3 L, Chloride 101, Carbon Dioxide 23, Anion Gap 12.3, B UN 4 L, Creatinine 0.60, Estimated Creat Clear 175, Estimated GFR 125, Est GFR ( Amer) 151, Glucose 100, Lactate 0.9, Calcium 9.1, Total Bilirubin 0.7, AST 21, ALT 16, Alkaline Phosphatase 66, C-Reactive Protein 32.3 H, Total Protein 6.9, Albumin 4.0, Globulin 2.9, Albumin/Globulin Ratio 1.4, Lipase 35, Urine Color Dark yellow, Urine Appearance Clear, Urine pH 6.0, Ur Specific Idamay >= 1.030, Urine Protein Negative, Urine Glucose (UA) Negative, Urine Ketones 1+, Urine Blood Negative, Urine Nitrate Negative, Urine Bilirubin Negative, Urine Urobilinogen 1.0, Ur Leukocyte Esterase 2+ A, Urine WBC 5-10, Ur Squamous Epith Cells 10-20, Urine Bacteria 1+ 06/29/24 05:35: SARS-CoV-2 (PCR) Not detected, Influenza A Untype (PCR) Detected A, Influenza Type B (PCR) Not detected 06/29/24 07:23: Urine Color Yellow, Urine Appearance Clear, Urine pH 6.0, Ur Specific Idamay 1.010, Urine Protein Negative, Urine Glucose (UA) Negative, Urine Ketones 1+, Urine Blood Negative, Urine Nitrate Negative, Urine Bilirubin Negative, Urine Urobilinogen 1.0, Ur Leukocyte Esterase 2+ A, Urine RBC None, Urine WBC 10-20, Ur Squamous Epith Cells 10-20, Urine Bacteria 1+ 06/29/24 05:31 06/29/24 05:31 Orders (Tests/Meds): ED MEDICATIONS Discontinued Medications Generic Name Dose Route Start Last Admin Trade Name Freq PRN Reason Stop Dose Admin Acetaminophen 1,000 mg 06/29/24 06:14 06/29/24 06:19 Acetaminophen 500mg Tab PO 06/29/24 06:15 1,000 mg ONCE ONE Administration Sodium Chloride 1,000 mls @ 999 mls/hr 06/29/24 06:42 06/29/24 06:44 Sod Chlor 0.9% 1000ml Bag IV 06/29/24 07:42 999 mls/hr .Q1H1M ONE Administration Potassium Chloride 20 meq 06/29/24 06:43 06/29/24 06:45 Potassium Chloride 20meq Tab PO 06/29/24 06:44 20 meq ONCE ONE Administration ORDERS Category Date Time Status POCUS Point of Care (ER Only) Stat Exams 06/29/24 05:27 Completed CBC w/Auto Diff [Complete Blood Count Auto Diff] Stat Lab 06/29/24 05:31 Completed CMP [Comprehensive Metabolic Panel] Stat Lab 06/29/24 05:31 Completed CRP [C-Reactive Protein] Stat Lab 06/29/24 05:31 Completed Lactic Acid Stat Lab 06/29/24 05:31 Completed Lipase Stat Lab 06/29/24 05:31 Completed Rapid PCR Covid and Flu A/B Stat Lab 06/29/24 05:35 Completed UA [Urinalysis and Microscopic] Stat Lab 11/21/24 07:23 Completed Urinalysis and Microscopic Stat Lab 06/29/24 05:31 Completed Urine Culture Stat Micro 06/29/24 05:31 Received Medical Decision Narrative: In summary, this 23-year-old female G2, P1 approximately 18 weeks presents to the emergency department today with back pain and lower abdominal pain. On initial evaluation patient is hemodynamically stable, borderline febrile with temperature 100.1, physical exam notable for diffuse mid and low back discomfort to palpation including at the midline with tenderness to percussion throughout the back, no localizing flank pain or tenderness, no localizing CVA tenderness, no findings of trauma, no neurodeficits, abdominal exam notable for gravid abdomen with mild right lower quadrant tenderness without rebound or guarding, no peritonitis. Differential diagnosis includes but is not limited to viral syndrome, urinary tract infection, I considered kidney/ureteral stone, however patient not having lateralizing flank pain goes against this diagnosis as well as her pain not being colicky and being a gradual increase over the last few days instead of sudden onset. I did consider pyelonephritis, appendicitis, pancreatitis, lactic acidosis, enteritis. Based on these concerns, I ordered serum labs, urine studies, [id number] ultrasound. [id number] ultrasound personally performed and interpreted demonstrates live intrauterine hoff gestation with heart rate 126, no obvious abnormalities of either kidney appreciated. Labs personally reviewed demonstrate no leukocytosis, no anemia, normal platelets, UA with leukocyte Estrace and dipstick, micro with 5-10 WBCs, contaminated with 10-20 squamous cells, 1+ bacteria. CRP is elevated at 32, nonspecific with otherwise reassuring labs. Since patient is asymptomatic, will send for urine culture. CMP with mild hyponatremia, hypokalemia, patient is receiving normal saline for her persistent tachycardia and oral repletion of potassium. Patient handed off to Dr. Woodward of physician shift change pending viral swab and reevaluation after receiving fluids. <Brando Woodward MD - Last Filed: 06/29/24 09:24> Vital Signs: 06/29/24 05:21 06/29/24 05:34 Temperature 100.1 F H Temperature Source Oral Pulse Rate 123 H Pulse Rate [Apical] 139 H Respiratory Rate 20 18 Blood Pressure 118/71 Blood Pressure [Right Arm] 116/90 Blood Pressure Mean [Right Arm] 98 02 Sat by Pulse Oximetry 98 96 Oxygen Delivery Method Room Air Room Air Lab Data Lab Results 06/29/24 05:31: WBC 9.6, RBC 4.45, Hgb 12.6, Hct 36.6 L, MCV 82.2, MCH 28.3, MCHC 34.5, RDW 14.8, Plt Count 283, MPV 8.4, Neut % (Auto) 88.7 H, Lymph % (Auto) 5.3 L, [place] % (Auto) 5.3, Eos % (Auto) 0.3, Baso % (Auto) 0.5, Neut # (Auto) 8.5 H, Lymph # (Auto) 0.5 L, [place] # (Auto) 0.5, Eos # (Auto) 0.0, Baso # (Auto) 0.1, Total Counted 100, Neutrophils % (Manual) 89 H, Lymphocytes % (Manual) 6 L, Monocytes % (Manual) 5, RBC Morphology Normal, Stomatocytes 1+, S odium 133 L, Potassium 3.3 L, Chloride 101, Carbon Dioxide 23, Anion Gap 12.3, B UN 4 L, Creatinine 0.60, Estimated Creat Clear 175, Estimated GFR 125, Est GFR ( Amer) 151, Glucose 100, Lactate 0.9, Calcium 9.1, Total Bilirubin 0.7, AST 21, ALT 16, Alkaline Phosphatase 66, C-Reactive Protein 32.3 H, Total Protein 6.9, Albumin 4.0, Globulin 2.9, Albumin/Globulin Ratio 1.4, Lipase 35, Urine Color Dark yellow, Urine Appearance Clear, Urine pH 6.0, Ur Specific Idamay >= 1.030, Urine Protein Negative, Urine Glucose (UA) Negative, Urine Ketones 1+, Urine Blood Negative, Urine Nitrate Negative, Urine Bilirubin Negative, Urine Urobilinogen 1.0, Ur Leukocyte Esterase 2+ A, Urine WBC 5-10, Ur Squamous Epith Cells 10-20, Urine Bacteria 1+ 06/29/24 05:35: SARS-CoV-2 (PCR) Not detected, Influenza A Untype (PCR) Detected A, Influenza Type B (PCR) Not detected 06/29/24 07:23: Urine Color Yellow, Urine Appearance Clear, Urine pH 6.0, Ur Specific Idam[place] 1.010, Urine Protein Negative, Urine Glucose (UA) Negative, Urine Ketones 1+, Urine Blood Negative, Urine Nitrate Negative, Urine Bilirubin Negative, Urine Urobilinogen 1.0, Ur Leukocyte Esterase 2+ A, Urine RBC None, Urine WBC 10-20, Ur Squamous Epith Cells 10-20, Urine Bacteria 1+ Orders (Tests/Meds): ED MEDICATIONS Discontinued Medications Generic Name Dose Route Start Last Admin Trade Name Freq PRN Reason Stop Dose Admin Acetaminophen 1,000 mg 06/29/24 06:14 06/29/24 06:19 Acetaminophen 500mg Tab PO 06/29/24 06:15 1,000 mg ONCE ONE Administration Sodium Chloride 1,000 mls @ 999 mls/hr 06/29/24 06:42 06/29/24 06:44 Sod Chlor 0.9% 1000ml Bag IV 06/29/24 07:42 999 mls/hr .Q1H1M ONE Administration Potassium Chloride 20 meq 06/29/24 06:43 06/29/24 06:45 Potassium Chloride 20meq Tab PO 06/29/24 06:44 20 meq ONCE ONE Administration ORDERS Category Date Time Status POCUS Point of Care (ER Only) Stat Exams 06/29/24 05:27 Completed CBC w/Auto Diff [Complete Blood Count Auto Diff] Stat Lab 06/29/24 05:31 Completed CMP [Comprehensive Metabolic Panel] Stat Lab 06/29/24 05:31 Completed CRP [C-Reactive Protein] Stat Lab 06/29/24 05:31 Completed Lactic Acid Stat Lab 06/29/24 05:31 Completed Lipase Stat Lab 06/29/24 05:31 Completed Rapid PCR Covid and Flu A/B Stat Lab 06/29/24 05:35 Completed UA [Urinalysis and Microscopic] Stat Lab 06/29/24 07:23 Completed Urinalysis and Microscopic Stat Lab 06/29/24 05:31 Completed Urine Culture Stat Micro 06/29/24 05:31 Received Medical Decision Narrative: In summary, this 23-year-old female G2, P1 approximately 18 weeks presents to the emergency department today with back pain and lower abdominal pain. On initial evaluation patient is hemodynamically stable, borderline febrile with temperature 100.1, physical exam notable for diffuse mid and low back discomfort to palpation including at the midline with tenderness to percussion throughout the back, no localizing flank pain or tenderness, no localizing CVA tenderness, no findings of trauma, no neurodeficits, abdominal exam notable for gravid abdomen with mild right lower quadrant tenderness without rebound or guarding, no peritonitis. Differential diagnosis includes but is not limited to viral syndrome, urinary tract infection, I considered kidney/ureteral stone, however patient not having lateralizing flank pain goes against this diagnosis as well as her pain not being colicky and being a gradual increase over the last few days instead of sudden onset. I did consider pyelonephritis, appendicitis, pancreatitis, lactic acidosis, enteritis. Based on these concerns, I ordered serum labs, urine studies, [id number] ultrasound. [id number] ultrasound personally performed and interpreted demonstrates live intrauterine hoff gestation with heart rate 126, no obvious abnormalities of either kidney appreciated. Labs personally reviewed demonstrate no leukocytosis, no anemia, normal platelets, UA with leukocyte Estrace and dipstick, micro with 5-10 WBCs, contaminated with 10-20 squamous cells, 1+ bacteria. CRP is elevated at 32, nonspecific with otherwise reassuring labs. Since patient is asymptomatic, will send for urine culture. CMP with mild hyponatremia, hypokalemia, patient is receiving normal saline for her persistent tachycardia and oral repletion of potassium. Patient handed off to Dr. Woodward of physician shift change pending viral swab and reevaluation after receiving fluids. Brando Woodward: Upon assumption care patient was hemodynamically stable, persistent tachycardia. Patient has mild right lower quadrant tenderness on exam. EGA 19 weeks G2, P1 previous delivery was vaginal. She has not had complications thus far. Patient does not have a significant white count, her abdominal pain woke her up at 3 AM this morning she has an elevated CRP and an equivocal urine due to squamous cell contamination which will be repeated. Viral swab pending. Given that she has tachycardia, elevated temperature but no true fever and elevated CRP I do have some concern for appendicitis. Upon review of viral swab patient is influenza A positive. Case was discussed with obstetrics regarding management patient will benefit from admission for continued evaluation given that appendicitis remains a possibility. They recommend starting Tamiflu which I agree with. Hospitalist will consult. Patient was admitted in stable condition. Procedures <Sola Milton MD - Last Filed: 06/29/24 06:58> Miscellaneous Procedure Procedure Performed: Limited renal ultrasound Indication: A focused ultrasound of the kidneys was performed to evaluate for hydronephrosis and nephrolithiasis. The ultrasound was performed with the following indications, as noted in the H&P: Back pain Identified structures: Bilateral kidney Findings: Bilateral kidneys Normal without hydronephrosis, no intrarenal or ureteral calculi appreciated within the limits of exam Right kidney 9.48 cm, left kidney 11.68 cm Impression: Normal limited renal ultrasound Images were saved to permanent archive The study was technically adequate CPT: 77413-17 This study was performed by [facility], and I personally interpreted all images/videos. Based on my clinical judgement, these images were adequate and did not necessitate further imaging. Limited OB ultrasound Indication: Known , lower abdominal pain Identified structures: Uterus, adnexa, cul-de-sac Findings: Uterus: Definitive single IUP FHR: 126 Right adnexa: questionable small fluid vs artifact Left adnexa: Normal Cul de sac: Fluid absent Impression: -IUP: Present - heart rate: 120 -Ectopic : Not appreciated -Free fluid: small amount in R adnexa vs artifact Images were to permanent archive The study was technically adequate CPT Transabdominal: 04173-67 This study was performed by me, and I personally interpreted all images/videos. Based on my clinical judgement, these images were adequate and did not necessitate further imaging. Critical Care <Sola Milton MD - Last Filed: 06/29/24 06:58> Critical Care Time Critical Care Time: No
[2024-06-29 05:43] LABS: Coronavirus 19, PCR Not Detected (NotDetected); Influenza B, PCR Not Detected (NotDetected)
[2024-06-29 05:44] LABS: Basophils # 0.1 K/mm3 (0-0.2); Basophils % 0.5 % (0.1-2.0); Eosinophils % 0.3 % (0.1-12.0); Hematocrit 36.6 % (37.0-47.0); Hemoglobin 12.6 g/dL (12.2-16.2); Lymphocytes # 0.5 K/mm3 (0.7-4.5); Lymphocytes % 5.3 % (10-50); Mean Corpuscular HGB Conc 34.5 g/dL (31.8-35.4); Mean Corpuscular Hemoglobin 28.3 pg (27.0-31.2); Mean Corpuscular Volume 82.2 fl (81-99); Mean Platelet Volume 8.4 fl (7.4-10.4); Monocytes # 0.5 K/mm3 (0.1-1.0); Monocytes % 5.3 % (1.7-9.3); Neutrophils # 8.5 K/mm3 (1.8-7.8); Neutrophils % 88.7 % (37.0-80.0); Platelet Count 283 K/mm3 (142-424); Red Blood Count 4.45 M/mm3 (4.20-5.40); Red Cell Distribution Width 14.8 % (11.5-17.5); White Blood Count 9.6 K/mm3 (4.8-10.8)
[2024-06-29 05:47] LABS: Microscopic, Urine URINE MICROSCOPIC (MICROSCOPIC)
[2024-06-29 05:49] LABS: MANUAL DIFFERENTIAL MANUAL DIFFERENTIAL (MANUAL DIFF)
[2024-06-29 05:51] LABS: Appearance,Urine CLEAR (Clear); Bilirubin,Urine Negative (Negative); Blood, Urine Negative (Negative); Glucose,Urine (UA) Negative (Negative); Ketones,Urine 1+ (Negative); Leukocyte Esterase,Urine 2+ (Negative); Nitrate,Urine Negative (Negative); Protein,Urine Negative (Negative); Specific Gravity, Urine >= 1.030 (1.005-1.030)
[2024-06-29 05:53] LABS: Color,Urine Dark Yellow (Yellow)
[2024-06-29 05:55] LABS: Alanine Aminotransferase 16 U/L (12-78); Albumin/Globulin Ratio 1.4 (1.1-1.8); Alkaline Phosphatase 66 U/L (38-126); Anion Gap 12.3 mEq/L (5-15); Aspartate Amino Transferase 21 U/L (14-36); Bilirubin,Total 0.7 mg/dl (0.2-1.3); Blood Urea Nitrogen 4 mg/dl (7-17); Calcium 9.1 mg/dl (8.4-10.2); Carbon Dioxide 23 mmol/L (22.0-30.0); Chloride 101 mmol/L (98-107); Creatinine Clearance Estimated 175 mL/min (50-200); Estimated Glomerular Filt Rate 125 ml/min (>60); GFR (African American) 151 ML/MIN (>60); Globulin 2.9 g/dL (1.3-3.2); Glucose 100 mg/dl (74-100); Lactic Acid 0.9 mmol/L (0.7-2.1); Lipase 35 U/L (23-300); Potassium 3.3 mmoL/L (3.5-5.1); Sodium 133 mmol/L (136-145); Total Protein,Serum 6.9 g/dl (6.3-8.2)
[2024-06-29 06:00] LABS: C-Reactive Protein 32.3 mg/L (0-4)
[2024-06-29 06:01] LABS: Lymphocytes % 6 % (10-50); Monocytes % 5 % (2-9); Neutrophils % 89 % (42-76); RBC Morphology Normal; Total Cells Counted 100
[2024-06-29 06:02] LABS: Stomatocytes 1+
[2024-06-29] MEDS: ACETAMINOPHEN 500MG TAB 1000 MG PO (06:19)
[2024-06-29 06:24] LABS: Bacteria,Urine 1+ /lpf
[2024-06-29] MEDS: 0.9 % SODIUM CHLORIDE 1000ML 1,000 ML 999 ML IV (06:44)
[2024-06-29] MEDS: POTASSIUM CHLORIDE 20MEQ TAB 20 MEQ PO (06:45)
[2024-06-29 07:27] LABS: Microscopic, Urine URINE MICROSCOPIC (MICROSCOPIC)
[2024-06-29 07:28] LABS: Influenza A, PCR Detected (NotDetected)
[2024-06-29 07:32] LABS: Appearance,Urine CLEAR (Clear); Bilirubin,Urine Negative (Negative); Blood, Urine Negative (Negative); Color,Urine YELLOW (Yellow); Glucose,Urine (UA) Negative (Negative); Ketones,Urine 1+ (Negative); Leukocyte Esterase,Urine 2+ (Negative); Nitrate,Urine Negative (Negative); Protein,Urine Negative (Negative)
[2024-06-29 08:00] LABS: Bacteria,Urine 1+ /lpf
--- NOTE | 2024-06-29 08:14 | PC.NURSE ---
Have paged Dr. Veronica Rajput 2x [facility] response. Per surgery, Dr. Rajput, Dr. Bailey, and Dr. Preston are all in surgery and will call back as soon as one is available.
--- NOTE | 2024-06-29 09:13 | MR_ITS ---
FINAL REPORT TECHNIQUE: Multiplanar MR imaging of the pelvis was obtained without contrast. CLINICAL HISTORY: 19 week preg RLQ abdominal pain FINDINGS: There is a single intrauterine identified in the breech position. Placenta lies along the anterior and right lateral aspect of the endometrial cavity. The appendix is not definitely identified. There is no definite right lower quadrant inflammatory change. Urinary bladder is unremarkable. There is no adenopathy or free fluid. IMPRESSION: Single intrauterine . Appendix not definitively identified. No right lower quadrant inflammatory change. Reviewed, Interpreted and Dictated by Van Huang MD Transcribed by Thuy Casey Authenticated and [facility]
--- NOTE | 2024-06-29 09:13 | MR_ITS ---
FINAL REPORT TECHNIQUE: Multiplanar MR imaging of the abdomen was obtained without contrast. CLINICAL HISTORY: 19 week preg RLQ abdominal pain FINDINGS: The lung bases are clear. The liver is enlarged measuring up to 25 cm in craniocaudad dimension. Spleen is enlarged at 16 cm. Gallbladder is present. There are multiple localized signal abnormalities in the dependent portion of the gallbladder consistent with gallstones. There is no evidence of intra or extrahepatic biliary ductal dilatation. There is no choledocholithiasis. Pancreas, adrenal glands and kidneys are unremarkable. There is no adenopathy or free fluid. IMPRESSION: Cholelithiasis. Moderate hepatosplenomegaly. Reviewed, Interpreted and Dictated by Van Huang MD Transcribed by Thuy Casey Authenticated and [facility]
--- NOTE | 2024-06-29 09:21 | PC.NURSE ---
Obtained heart tones via ER doppler and it was 160-165. pts' HR 114-122
--- NOTE | 2024-06-29 09:36 | PC.NURSE ---
Called House for admission. Dr Woodward states pt will be abx by Dr. Vreonica Rajput to Med/Surg unit d/t being flu A +.
--- NOTE | 2024-06-29 09:53 | PC.NURSE ---
report called to [facility]
--- NOTE | 2024-06-29 10:12 | PC.NURSE ---
Pt arrived to floor via w/c @ 1011.
[2024-06-29] MEDS: OSELTAMIVIR 75MG CAPSULE 75 MG PO ×2 (10:24→20:04)
--- NOTE | 2024-06-29 11:34 | EXP.MED.CON ---
History of Present Illness *Admission Date: 06/29/24 *Reason for visit:: Fever, abdominal pain *History of present illness: Ms. Hernandez is a 23-year-old female who is 18 weeks (). She presents with 2 to 3 days of low back pain that is progressed abdominal pain. Having dry nonproductive cough and fever. She denies any [place] nausea or vomiting. No dysuria. Denies constipation or diarrhea. On evaluation in the ER, concern for UTI. Found to be flu a positive. Continuing to have significant abdominal pain on exam. Given her , would benefit from evaluation for appendicitis. Medicine consulted for medical comanagement, admitted to [facility] for further care. MRI ordered. On evaluation, patient states she is feeling little bit better. Having regular bowel movements. Pain worse in right lower abdomen but also present in the left. States that it was back pain first that progressed to her abdomen. Stable on room air. [facility] Disclaimer: The information contained in this section may have been updated after the patient was seen, as this information can be updated by other users. Medical History Headache Rh negative state in antepartum period Nausea and vomiting of , antepartum History of gestational hypertension PCOS (polycystic ovarian syndrome) Irregular periods Dysmenorrhea Abnormal uterine bleeding (AUB) Status post normal vaginal delivery Gestational hypertension History of PCOS History of ankle fracture Surgical History History of ankle surgery [place] teeth extracted H/O adenoidectomy Hx of tonsillectomy Family History Other Diabetes Heart attack Hyperlipidemia Hypertension Thyroid disorder Social History Smoking Status: Never smoker second hand exposure: No alcohol intake: never substance use type: denies use current occupational status: unemployed Travel in the last 8 weeks: None current occupational exposures/hazards: No caffeine: Yes Review of Systems Review of Systems Review of systems (narrative): 14 point review of systems performed, pertinent positives and negatives as per HPI Exam Data for Last 24 hours Vital signs and Labs for Last 24 Hours: Temp Pulse Resp BP Pulse Ox O2 Del Method 98.6 F 124 H 18 125/64 96 Room Air 06/29/24 10:35 06/29/24 10:35 06/29/24 10:35 06/29/24 10:35 06/29/24 10:35 06/29/24 10:35 Laboratory Results - last 24 hr 06/29/24 05:31: WBC 9.6, RBC 4.45, Hgb 12.6, Hct 36.6 L, MCV 82.2, MCH 28.3, MCHC 34.5, RDW 14.8, Plt Count 283, MPV 8.4, Neut % (Auto) 88.7 H, Lymph % (Auto) 5.3 L, [place] % (Auto) 5.3, Eos % (Auto) 0.3, Baso % (Auto) 0.5, Neut # (Auto) 8.5 H, Lymph # (Auto) 0.5 L, [place] # (Auto) 0.5, Eos # (Auto) 0.0, Baso # (Auto) 0.1, Total Counted 100, Neutrophils % (Manual) 89 H, Lymphocytes % (Manual) 6 L, Monocytes % (Manual) 5, RBC Morphology Normal, Stomatocytes 1+, Sodium 133 L, Potassium 3.3 L, Chloride 101, Carbon Dioxide 23, Anion Gap 12.3, BUN 4 L, Creatinine 0.60, Estimated Creat Clear 175, Estimated GFR 125, Est GFR ( Amer) 151, Glucose 100, Lactate 0.9, Calcium 9.1, Total Bilirubin 0.7, AST 21, ALT 16, Alkaline Phosphatase 66, C-Reactive Protein 32.3 H, Total Protein 6.9, Albumin 4.0, Globulin 2.9, Albumin/Globulin Ratio 1.4, Lipase 35, Urine Color Dark yellow, Urine Appearance Clear, Urine pH 6.0, Ur Specific [place] >= 1.030, Urine Protein Negative, Urine Glucose (UA) Negative, Urine Ketones 1+, Urine Blood Negative, Urine Nitrate Negative, Urine Bilirubin Negative, Urine Urobilinogen 1.0, Ur Leukocyte Esterase 2+ A, Urine WBC 5-10, Ur Squamous Epith Cells 10-20, Urine Bacteria 1+ 06/29/24 05:35: SARS-CoV-2 (PCR) Not detected, Influenza A Untype (PCR) Detected A, Influenza Type B (PCR) Not detected 06/29/24 07:23: Urine Color Yellow, Urine Appearance Clear, Urine pH 6.0, Ur Specific [place] 1.010, Urine Protein Negative, Urine Glucose (UA) Negative, Urine Ketones 1+, Urine Blood Negative, Urine Nitrate Negative, Urine Bilirubin Negative, Urine Urobilinogen 1.0, Ur Leukocyte Esterase 2+ A, Urine RBC None, Urine WBC 10-20, Ur Squamous Epith Cells 10-20, Urine Bacteria 1+ I & O for Last 24 hours: Intake & Output 06/26/24 06/27/24 06/28/24 06/29/24 23:59 23:59 23:59 23:59 Intake Total 1000 / 1000 Balance 1000 / 1000 Weight 77.366 kg Constitutional Constitutional: no acute distress, obese and cooperative Comments: Ill-appearing but not toxic *Routine HEENT Exam Head: Present normocephalic Eye: Present EOMI and PERRL ENT: Present mucous membranes moist *Routine Neck Exam Neck: Present supple; Absent lymphadenopathy *Routine Respiratory Exam Respiratory: Present CTA bilaterally; Absent respiratory distress, rhonchi, wheezes or crackles *Routine Cardiovascular Exam Cardiovascular: Present tachycardia Comments: Regular rhythm *Routine Abdominal Exam Abdominal: Present soft, normoactive bowel sounds and tenderness (Worse in right lower abdomen compared to left) Comments: Gravid *Routine Rectal Exam Patient deferred: visual exam *Routine Exam Patient deferred: external exam *Routine Extremities Exam Extremities: Absent cyanosis, clubbing or edema *Routine Skin Exam Skin: Present intact and warm; Absent rash *Routine Neurological Exam Neurological: Present alert, oriented X3 and moving all extremities; Absent altered mental status Meds Home Medications and Allergies Home Medications ?Medication ?Instructions ?Recorded ?Confirmed ?Type aspirin 81 mg chewable tablet 81 mg PO DAILY 05/26/24 06/29/24 History vits no.126-ferrous fum 1 tab PO DAILY 05/26/24 06/29/24 History 28 mg iron-folic acid 800 mcg tablet (Classic ) ondansetron 4 mg disintegrating 4 mg PO Q8H #30 tabs 05/31/24 06/29/24 Rx tablet cetirizine 10 mg tablet 10 mg PO DAILY 06/29/24 06/29/24 History New Prescriptions to Start Prescriptions: Allergies Allergy/AdvReac Type Severity Reaction Status Date / Time Penicillins Allergy Severe Anaphylaxis Verified 06/22/24 14:57 povidone-iodine (From AdvReac Mild Itching Verified 06/22/24 14:57 Betadine) soap (From Betadine) AdvReac Mild Itching Verified 06/22/24 14:57 Results Labs 06/29/24 05:31 06/29/24 05:31 Labs: Abnormal lab results 06/29/24 06/29/24 06/29/24 Range/Units 05:31 05:35 07:23 Hct 36.6 L (37.0-47.0) % Neut % (Auto) 88.7 H (37.0-80.0) % Lymph % (Auto) 5.3 L (10-50) % Neut # (Auto) 8.5 H (1.8-7.8) K/mm3 Lymph # (Auto) 0.5 L (0.7-4.5) K/mm3 Neutrophils % (Manual) 89 H (42-76) % Lymphocytes % (Manual) 6 L (10-50) % Sodium 133 L (136-145) mmol/L Potassium 3.3 L (3.5-5.1) mmoL/L BUN 4 L (7-17) mg/dl C-Reactive Protein 32.3 H (0-4) mg/L Ur Leukocyte Esterase 2+ A 2+ A (Negative) Influenza A Untype (PCR) Detected A (NotDetected) H & H 06/29/24 Range/Units 05:31 Hgb 12.6 (12.2-16.2) g/dL Hct 36.6 L (37.0-47.0) % All other labs normal. Assessment and Plan *Assessment and plan (1) Influenza A: Status: Acute Category: Medical Code(s): J10.1 - Influenza due to other identified influenza virus with other respiratory manifestations (2) Back pain affecting : Status: Acute Category: Medical Code(s): O99.891 - Other specified diseases and conditions complicating ; M54.9 - Dorsalgia, unspecified (3) Fever: Status: Acute Qualifiers: Fever type: unspecified Qualified Code(s): R50.9 - Fever, unspecified Category: Medical Code(s): R50.9 - Fever, unspecified (4) UTI (urinary tract infection): Status: Acute Category: Medical Code(s): N39.0 - Urinary tract infection, site not specified (5) 18 weeks gestation of : Status: Acute Category: Medical Code(s): Z3A.18 - 18 weeks gestation of Plan Sanjana is a pleasant 23-year-old female who presents with 2 to 3 days of low back pain that progressed abdominal pain. Developed fevers. Presented to the ER due to pain and symptoms. Found to be flu positive with urine suggestive of UTI along with abdominal pain concerning for intra-abdominal pathology. Patient admitted to gynecology due to 18wks gestation. Discussed case with ER physician. Medicine consulted for additional assistance. On evaluation, patient appears ill but nontoxic. Comfortable on room air. Has received Tamiflu x 1. Necessitating inpatient management. MRI of abdomen obtained. Problems addressed as follows. Abdominal pain in the setting infection: MRI ordered. Formal read still pending. No rebound or guarding, low concern for peritoneal signs. Differential includes appendicitis, constipation, UTI, other acute abdominal pathology. Further management pending formal read of MRI Flu a positive -Continue Tamiflu 75 mg twice daily for total of 5 days, monitor for oxygen requirement. increases her risk for complications. -Tylenol 650 mg as needed every 4-6 hours for fever. UTI: - recommend considering 1 g ceftriaxone daily given her urinalysis showing 2+ leuk esterase, 10-20 white cells, 1+ bacteria. Even though nitrite is negative, could have a non-urease producing UTI. - In light of her low back pain and abdominal pain with abnormal urine, would consider treatment empirically pending urine culture. -White count normal at 9.6. Hemoglobin low normal at 12.6. Repeat CBC, CMP, magnesium ordered for the morning. Kidney function normal with BUN 4, creatinine 0.6. : 19 weeks gestation. Defer further management to admitting team/OB; continue vitamin Thank you for the opportunity to consult and assist with care. Recommend monitoring overnight. If no other acute pathology identified, continue treatment for flu and suspected UTI.
[2024-06-29 12:12] LABS: HIV (1&2) Antibody Rapid NONREACTIVE (NONREACTIVE)
[2024-06-29] MEDS: PROMETHAZINE HCL 25MG/ML 1ML VIAL 12.5 MG IV (12:59)
--- NOTE | 2024-06-29 13:18 | P.HP_ITS ---
History of Present Illness *Admission Date: 06/29/24 *Reason for visit:: Abdominal pain and Flu positive *History of present illness: Sanjana Hernandez is a 23-year-old G2, P1 at 18 weeks and 1 day gestation who presented to the ED today with generalized malaise/fatigue, back pain, abdominal pain, and low-grade temperature elevations without a true fever for the last 2 days. Describes her pain as more sharp and midline. Reports that it originated as back pain. Describes that over the last 24 hours it has also became painful on the right. She was noted to be flu positive. She had a full evaluation to include an abdominal MRI to rule out appendicitis secondary to abdominal pain and a mildly elevated CRP. MRI was benign, but the appendix was not definitively identified. MRI did note incidental cholelithiasis with moderate hepatosplenomegaly. This has been relatively uncomplicated. Her first was a vaginal delivery which was complicated by gestational hypertension. She is taking a baby aspirin. She reports that she lives with her parents and that her dad has been sick for the last few days. Reports she has been sick for the last 2 days. Reports a cough in the abdominal and back pain previously described above. She denies any fevers. She has not yet felt movement in this . She denies any leakage of fluid, vaginal bleeding, or contractions. She did not receive her flu shot this . She has no known drug allergies. Of note the patient is also being evaluated for urinary tract infection. She had 2 urine specimens in the ED which were both contaminated. She has been evaluated for UTI several times with cultures noted to be multiple organisms. [facility] Disclaimer: The information contained in this section may have been updated after the patient was seen, as this information can be updated by other users. Medical History Headache Rh negative state in antepartum period Nausea and vomiting of , antepartum History of gestational hypertension PCOS (polycystic ovarian syndrome) Irregular periods Dysmenorrhea Abnormal uterine bleeding (AUB) Status post normal vaginal delivery Gestational hypertension History of PCOS History of ankle fracture Surgical History History of ankle surgery [place] teeth extracted H/O adenoidectomy Hx of tonsillectomy Family History Other Diabetes Heart attack Hyperlipidemia Hypertension Thyroid disorder Social History Smoking Status: Never smoker second hand exposure: No alcohol intake: never substance use type: denies use current occupational status: unemployed Travel in the last 8 weeks: None current occupational exposures/hazards: No caffeine: Yes Other Medical History Have you received the Flu Vaccine for this season: Yes Have you received the Pneumonia Vaccine: No Review of Systems Review of Systems Review of systems (narrative): Review of Systems Constitutional: Denies true fever, chills, and sweats Eyes: Denies vision change/ pain Respiratory: Endorses dry cough. Denies shortness of breath Cardiovascular: Denies chest pain and lightheadedness Gastrointestinal: Admits abdominal pain. Denies nausea, vomiting. Genitourinary: Endorses mild dysuria and midline pelvic pain. Denies incontinence Musculoskeletal: Denies shoulder pain. Endorses back pain Neurological: Denies change in speech or headaches Meds Home Medications and Allergies Home Medications ?Medication ?Instructions ?Recorded ?Confirmed ?Type aspirin 81 mg chewable tablet 81 mg PO DAILY 05/26/24 06/29/24 History vits no.126-ferrous fum 1 tab PO DAILY 05/26/24 06/29/24 History 28 mg iron-folic acid 800 mcg tablet (Classic ) ondansetron 4 mg disintegrating 4 mg PO Q8H #30 tabs 05/31/24 06/29/24 Rx tablet cetirizine 10 mg tablet 10 mg PO DAILY 06/29/24 06/29/24 History New Prescriptions to Start Prescriptions: Allergies Allergy/AdvReac Type Severity Reaction Status Date / Time Penicillins Allergy Severe Anaphylaxis Verified 06/22/24 14:57 povidone-iodine (From AdvReac Mild Itching Verified 06/22/24 14:57 Betadine) soap (From Betadine) AdvReac Mild Itching Verified 06/22/24 14:57 Exam Data for Last 24 hours Vital signs and Labs for Last 24 Hours: Temp Pulse Resp BP Pulse Ox O2 Del Method 98.6 F 124 H 18 125/64 96 Room Air 06/29/24 10:35 06/29/24 10:35 06/29/24 10:35 06/29/24 10:35 06/29/24 10:35 06/29/24 10:35 Laboratory Results - last 24 hr 06/29/24 05:31: WBC 9.6, RBC 4.45, Hgb 12.6, Hct 36.6 L, MCV 82.2, MCH 28.3, MCHC 34.5, RDW 14.8, Plt Count 283, MPV 8.4, Neut % (Auto) 88.7 H, Lymph % (Auto) 5.3 L, [place] % (Auto) 5.3, Eos % (Auto) 0.3, Baso % (Auto) 0.5, Neut # (Auto) 8.5 H, Lymph # (Auto) 0.5 L, [place] # (Auto) 0.5, Eos # (Auto) 0.0, Baso # (Auto) 0.1, Total Counted 100, Neutrophils % (Manual) 89 H, Lymphocytes % (Manual) 6 L, Monocytes % (Manual) 5, RBC Morphology Normal, Stomatocytes 1+, Sodium 133 L, Potassium 3.3 L, Chloride 101, Carbon Dioxide 23, Anion Gap 12.3, BUN 4 L, Creatinine 0.60, Estimated Creat Clear 175, Estimated GFR 125, Est GFR ( Amer) 151, Glucose 100, Lactate 0.9, Calcium 9.1, Total Bilirubin 0.7, AST 21, ALT 16, Alkaline Phosphatase 66, C-Reactive Protein 32.3 H, Total Protein 6.9, Albumin 4.0, Globulin 2.9, Albumin/Globulin Ratio 1.4, Lipase 35, Urine Color Dark yellow, Urine Appearance Clear, Urine pH 6.0, Ur Specific [place] >= 1.030, Urine Protein Negative, Urine Glucose (UA) Negative, Urine Ketones 1+, Urine Blood Negative, Urine Nitrate Negative, Urine Bilirubin Negative, Urine Urobilinogen 1.0, Ur Leukocyte Esterase 2+ A, Urine WBC 5-10, Ur Squamous Epith Cells 10-20, Urine Bacteria 1+, HIV 1&2 Antibody Rapid Nonreactive 06/29/24 05:35: SARS-CoV-2 (PCR) Not detected, Influenza A Untype (PCR) Detected A, Influenza Type B (PCR) Not detected 06/29/24 07:23: Urine Color Yellow, Urine Appearance Clear, Urine pH 6.0, Ur Specific [place] 1.010, Urine Protein Negative, Urine Glucose (UA) Negative, Urine Ketones 1+, Urine Blood Negative, Urine Nitrate Negative, Urine Bilirubin Negative, Urine Urobilinogen 1.0, Ur Leukocyte Esterase 2+ A, Urine RBC None, Urine WBC 10-20, Ur Squamous Epith Cells 10-20, Urine Bacteria 1+ I & O for Last 24 hours: Intake & Output 06/26/24 06/27/24 06/28/24 06/29/24 23:59 23:59 23:59 23:59 Intake Total 1000 / 1000 Balance 1000 / 1000 Weight 170 lb 9 oz Constitutional Constitutional: no acute distress and average body habitus *Routine HEENT Exam Head: Present normocephalic and atraumatic Eye: Present EOMI and PERRL ENT: Present mucous membranes dry *Routine Neck Exam Neck: Present supple; Absent lymphadenopathy *Routine Respiratory Exam Respiratory: Present CTA bilaterally, normal respiratory effort, able to speak in complete sentences and symmetric chest movement; Absent accessory muscle use, respiratory distress or diminished air movement *Routine Cardiovascular Exam Cardiovascular: Present tachycardia *Routine Abdominal Exam Abdominal: Present soft and normoactive bowel sounds; Absent tenderness, distended, rebound or guarding *Routine Rectal Exam Rectal:: deferred *Routine Genitalia Exam Genitalia:: deferred *Routine Extremities Exam Extremities: Present full ROM; Absent cyanosis, clubbing or edema Routine Back/Spine/Pelvis Exam Back/Spine: Absent CVA tenderness *Routine Skin Exam Skin: Present warm; Absent rash *Routine Neurological Exam Neurological: Present alert Assessment and Plan *Assessment and plan (1) 18 weeks gestation of : Status: Acute Category: Medical Code(s): Z3A.18 - 18 weeks gestation of (2) Influenza A: Status: Acute Category: Medical Code(s): J10.1 - Influenza due to other identified influenza virus with other respiratory manifestations (3) Back pain affecting : Status: Acute Category: Medical Code(s): O99.891 - Other specified diseases and conditions complicating ; M54.9 - Dorsalgia, unspecified (4) Abdominal pain affecting : Status: Acute Category: Medical Code(s): O26.899 - Other specified related conditions, unspecified trimester; R10.9 - Unspecified abdominal pain (5) Headache: Status: Acute Qualifiers: Headache type: unspecified Headache chronicity pattern: unspecified pattern Intractability: not intractable Qualified Code(s): R51.9 - Headache, unspecified Category: Medical Code(s): R51.9 - Headache, unspecified (6) Rh negative state in antepartum period: Status: Acute Category: Medical Code(s): O26.899 - Other specified related conditions, unspecified trimester; Z67.91 - Unspecified blood type, Rh negative (7) History of gestational hypertension: Status: Acute Category: Medical Code(s): Z87.59 - Personal history of other complications of , childbirth and the puerperium (8) UTI (urinary tract infection): Status: Acute Category: Medical Code(s): N39.0 - Urinary tract infection, site not specified Plan #Flu a positive -Initiate Tamiflu, continue at discharge -Monitor vitals for worsening symptoms or oxygen requirement -Defer chest x-ray at this time as the patient is a low risk for pneumonia on clinical exam presently -Consult internal medicine, appreciate them following and their recommendations. #UTI -Suggest catheterized urine specimen be collected for formal evaluation -Initiate ceftriaxone 1 g daily -Negative for CVAT on exam. Follow-up closely in the case of [place] development # #18 Weeks gestation #Abdominal pain -Heart tones every shift -Given and early gestation if needed we can use NSAIDs but we will start with acetaminophen for pain management -Negative MRI. Appendix not visualized. Incidental cholelithiasis noted If patient remains stable overnight with no progression anticipate discharge home tomorrow with close outpatient follow-up
--- NOTE | 2024-06-29 13:55 | PC.NURSE ---
heart tone auscultation 162 bpm
[2024-06-29] MEDS: ONDANSETRON 4MG ODT 4 MG PO ×2 (14:25→21:11)
[2024-06-29 15:32] LABS: Microscopic, Urine URINE MICROSCOPIC (MICROSCOPIC)
[2024-06-29 16:07] LABS: Appearance,Urine CLEAR (Clear); Bilirubin,Urine Negative (Negative); Blood, Urine Negative (Negative); Color,Urine YELLOW (Yellow); Glucose,Urine (UA) Negative (Negative); Ketones,Urine 3+ (Negative); Leukocyte Esterase,Urine TRACE (Negative); Nitrate,Urine Negative (Negative); Protein,Urine Negative (Negative); Specific Gravity, Urine 1.025 (1.005-1.030)
[2024-06-29] MEDS: PRENATAL MULTIVITAMIN W/IRON 1 EACH PO (16:33)
[2024-06-29 16:48] LABS: Bacteria,Urine 1+ /lpf
[2024-06-29 16:49] LABS: Mucus,Urine 4+ /lpf
[2024-06-29] MEDS: ACETAMINOPHEN 325MG TAB 650 MG PO (20:05)
[2024-06-30 04:00] VITALS: BP 94/62; PULSE 105; RESP 16; TEMP 37; O2SAT 97; BMI 30.8
[2024-06-30] MEDS: ONDANSETRON 4MG ODT 4 MG PO (04:39)
[2024-06-30] MEDS: GUAIFENESIN/DEXTROMETHORPHAN 200MG/20MG 10ML UDC 10 ML PO (04:47)
[2024-06-30 05:24] LABS: HCV Ab Non Reactive (Non Reactive)
[2024-06-30 06:51] LABS: Basophils % 0.5 % (0.1-2.0); Eosinophils % 0.3 % (0.1-12.0); Hematocrit 33.9 % (37.0-47.0); Hemoglobin 11.7 g/dL (12.2-16.2); Lymphocytes # 1.1 K/mm3 (0.7-4.5); Lymphocytes % 17.5 % (10-50); Mean Corpuscular HGB Conc 34.6 g/dL (31.8-35.4); Mean Corpuscular Hemoglobin 28.7 pg (27.0-31.2); Mean Corpuscular Volume 82.9 fl (81-99); Mean Platelet Volume 8.3 fl (7.4-10.4); Monocytes # 0.4 K/mm3 (0.1-1.0); Neutrophils # 4.7 K/mm3 (1.8-7.8); Neutrophils % 75.6 % (37.0-80.0); Platelet Count 276 K/mm3 (142-424); Red Blood Count 4.09 M/mm3 (4.20-5.40); White Blood Count 6.2 K/mm3 (4.8-10.8)
[2024-06-30 07:01] LABS: Alanine Aminotransferase 23 U/L (12-78); Albumin Level 3.3 g/dl (3.5-5.0); Albumin/Globulin Ratio 1.3 (1.1-1.8); Alkaline Phosphatase 56 U/L (38-126); Aspartate Amino Transferase 25 U/L (14-36); Bilirubin,Total 0.5 mg/dl (0.2-1.3); Blood Urea Nitrogen 6 mg/dl (7-17); Calcium 8.6 mg/dl (8.4-10.2); Carbon Dioxide 21 mmol/L (22.0-30.0); Chloride 107 mmol/L (98-107); Creatinine Clearance Estimated 212 mL/min (50-200); Estimated Glomerular Filt Rate 154 ml/min (>60); GFR (African American) 187 ML/MIN (>60); Globulin 2.5 g/dL (1.3-3.2); Glucose 118 mg/dl (74-100); Magnesium 1.9 mg/dl (1.6-2.3); Sodium 136 mmol/L (136-145); Total Protein,Serum 5.8 g/dl (6.3-8.2)
[2024-06-30] MEDS: CEFTRIAXONE SODIUM 1 GM in 0.9 % SODIUM CHLORIDE 50 ML IV (07:55)
[2024-06-30] MEDS: LORATADINE 10MG TABLET 10 MG PO (07:59)
[2024-06-30] MEDS: ASPIRIN 81MG CHEWABLE TABLET 81 MG PO (07:59)
[2024-06-30] MEDS: OSELTAMIVIR 75MG CAPSULE 75 MG PO (07:59)
[2024-06-30] MEDS: POTASSIUM CHLORIDE 20MEQ TAB 40 MEQ PO (07:59)
[2024-06-30 08:00] VITALS: BP 127/66; PULSE 93; RESP 17; TEMP 36.7; O2SAT 97
--- NOTE | 2024-06-30 08:44 | EXP.ACUTE.PN ---
Subjective *Date: 06/30/24 *Time: 08:44 Interval history: Feeling much better this morning. Tylenol is controlling her pain. Tolerating regular diet. Voiding without difficulty. No vaginal bleeding or discharge. She states she would like to go home. Medical Exam Vital signs and Labs for Last 24 Hours: Vital Signs Temp Pulse Pulse Resp BP BP Pulse Ox 06/30/24 08:20 06/30/24 07:00 06/30/24 04:54 06/30/24 04:00 98.6 F 105 H 16 94/62 L 97 06/30/24 03:00 06/30/24 01:00 06/29/24 23:00 06/29/24 21:00 06/29/24 20:00 06/29/24 19:27 98.3 F 116 H 18 121/71 99 06/29/24 18:57 06/29/24 17:00 06/29/24 16:00 98.3 F 122 H 19 129/69 96 06/29/24 15:00 06/29/24 13:00 06/29/24 12:00 97.7 F 130 H 19 133/71 96 06/29/24 11:00 06/29/24 10:35 98.6 F 124 H 18 125/64 96 06/29/24 10:10 98.5 F 110 H 18 112/78 O2 Del Method 06/30/24 08:20 Room Air 06/30/24 07:00 Room Air 06/30/24 04:54 Room Air 06/30/24 04:00 Room Air 06/30/24 03:00 Room Air 06/30/24 01:00 Room Air 06/29/24 23:00 Room Air 06/29/24 21:00 Room Air 06/29/24 20:00 Room Air 06/29/24 19:27 Room Air 06/29/24 18:57 Room Air 06/29/24 17:00 Room Air 06/29/24 16:00 Room Air 06/29/24 15:00 Room Air 06/29/24 13:00 Room Air 06/29/24 12:00 Room Air 06/29/24 11:00 Room Air 06/29/24 10:35 Room Air 06/29/24 10:10 Room Air Intake and Output 06/29/24 06/30/24 06/30/24 23:59 07:59 15:59 Intake Total 240 / 1240 50 / 50 Output Total 0 / 0 0 / 0 Balance 240 / 1240 0 / 50 50 / 50 Intake: Intake, Oral Amount 240 / 240 0 / 0 Intake, Total IV Amount 50 / 50 Ceftriaxone Sodium 1 gm In 0.9 50 / 50 % Sodium Chloride 50 ml @ 100 mls/hr IV ONCE ONE Rx#:[id number] Output: Output, Urine Amount 0 / 0 0 / 0 Other: Number of Voids 0 Number of Unmeasured Voids 1 1 Weight 167 lb 6.4 oz Patient Weight 06/30/24 23:59 Weight 167 lb 6.4 oz Laboratory Results - last 24 hr 06/29/24 05:31: Hepatitis C Antibody Non reactive, HIV 1&2 Antibody Rapid Nonreactive 06/29/24 15:27: Urine Color Yellow, Urine Appearance Clear, Urine pH 6.0, Ur Specific [place] 1.025, Urine Protein Negative, Urine Glucose (UA) Negative, Urine Ketones 3+, Urine Blood Negative, Urine Nitrate Negative, Urine Bilirubin Negative, Urine Urobilinogen 1.0, Ur Leukocyte Esterase Trace, Urine RBC 3-5, Urine WBC 5-10, Ur Squamous Epith Cells 10-20, Urine Bacteria 1+, Urine Mucus 4+ 06/30/24 06:08: WBC 6.2 D, RBC 4.09 L, Hgb 11.7 L, Hct 33.9 L, MCV 82.9, MCH 28.7, MCHC 34.6, RDW 15.0, Plt Count 276, MPV 8.3, Neut % (Auto) 75.6, Lymph % (Auto) 17.5, [place] % (Auto) 6.0, Eos % (Auto) 0.3, Baso % (Auto) 0.5, Neut # (Auto) 4.7, Lymph # (Auto) 1.1, [place] # (Auto) 0.4, Eos # (Auto) 0.0, Baso # (Auto) 0.0, Sodium 136, Potassium 3.0 L, Chloride 107, Carbon Dioxide 21 L, Anion Gap 11.0, BUN 6 L D, Creatinine 0.50 L, Estimated Creat Clear 212, Estimated GFR 154, Est GFR ( Amer) 187 D, Glucose 118 H, Calcium 8.6, Magnesium 1.9, Total Bilirubin 0.5, AST 25, ALT 23 D, Alkaline Phosphatase 56, Total Protein 5.8 L, Albumin 3.3 L D, Globulin 2.5, Albumin/Globulin Ratio 1.3 I & O for Labs for Last 24 Hours: Intake & Output 06/27/24 06/28/24 06/29/24 06/30/24 23:59 23:59 23:59 23:59 Intake Total 1240 / 1240 50 / 50 Output Total 0 / 0 0 / 0 Balance 1240 / 1240 50 / 50 Weight 170 lb 9 oz 167 lb 6.4 oz Constitutional: Present no acute distress and cooperative Head: Present atraumatic and normocephalic ENT: Present mucous membranes moist Neck: Present normal inspection and full ROM Respiratory: Present CTA bilaterally and normal respiratory effort Cardiac: Present Reg Rate and Rhythm GI: Present soft; Absent distention or tenderness Rectal (female): Present deferred (female): Present deferred Extremities: Present normal inspection and full ROM; Absent edema or calf tenderness Neuro: Present alert, awake and moves all extremities Assessment and Plan *Assessment and plan (1) 18 weeks gestation of : Status: Acute Category: Medical Code(s): Z3A.18 - 18 weeks gestation of (2) Influenza A: Status: Acute Category: Medical Code(s): J10.1 - Influenza due to other identified influenza virus with other respiratory manifestations (3) UTI (urinary tract infection): Status: Acute Qualifiers: Urinary tract infection type: acute cystitis Hematuria presence: without hematuria Qualified Code(s): N30.00 - Acute cystitis without hematuria Category: Medical Code(s): N39.0 - Urinary tract infection, site not specified (4) Back pain affecting : Status: Acute Category: Medical Code(s): O99.891 - Other specified diseases and conditions complicating ; M54.9 - Dorsalgia, unspecified (5) Abdominal pain affecting : Status: Acute Category: Medical Code(s): O26.899 - Other specified related conditions, unspecified trimester; R10.9 - Unspecified abdominal pain Plan She is feeling much better this morning. Pain controlled with Tylenol. She would like to go home. Vital signs stable, afebrile. WBC WNL. D/c home today with Tamiflu and Macrobid Follow-up 07/14 or sooner if needed
--- NOTE | 2024-06-30 09:05 | PC.NURSE ---
FHT 136 PER DOPPLER
--- NOTE | 2024-06-30 09:33 | P.DS_ITS ---
General Admission date:: 06/29/24 Discharge date: 06/30/24 HPI HPI HPI: Sanjana Hernandez is a 23-year-old G2, P1 at 18 weeks and 1 day gestation who presented to the ED today with generalized malaise/fatigue, back pain, abdominal pain, and low-grade temperature elevations without a true fever for the last 2 days. Describes her pain as more sharp and midline. Reports that it originated as back pain. Describes that over the last 24 hours it has also became painful on the right. She was noted to be flu positive. She had a full evaluation to include an abdominal MRI to rule out appendicitis secondary to abdominal pain and a mildly elevated CRP. MRI was benign, but the appendix was not definitively identified. MRI did note incidental cholelithiasis with moderate hepatosplenomegaly. This has been relatively uncomplicated. Her first was a vaginal delivery which was complicated by gestational hypertension. She is taking a baby aspirin. She reports that she lives with her parents and that her dad has been sick for the last few days. Reports she has been sick for the last 2 days. Reports a cough in the abdominal and back pain previously described above. She denies any fevers. She has not yet felt movement in this . She denies any leakage of fluid, vaginal bleeding, or contractions. She did not receive her flu shot this . She has no known drug allergies. Of note the patient is also being evaluated for urinary tract infection. She had 2 urine specimens in the ED which were both contaminated. She has been evaluated for UTI several times with cultures noted to be multiple organisms. Hospital Course Hospital Course Hospital Course: Sanjana is a pleasant 23-year-old female who presents with 2 to 3 days of low back pain that progressed abdominal pain. Developed fevers. Presented to the ER due to pain and symptoms. Found to be flu positive with urine suggestive of UTI along with abdominal pain concerning for intra-abdominal pathology. Patient admitted to gynecology due to 18wks gestation. Discussed case with ER physician. Medicine consulted for additional assistance. On evaluation, patient appears ill but nontoxic. Remained notable on room air during admission. Starting on Tamiflu for flu a positive status. Catheterized urine obtained showing concern for UTI. MRI reassuring that she did not have appendicitis. Given her stability, will discharge home to complete oral therapy for flu and UTI. Case discussed with obstetrics on day of discharge, stable discharge home with close outpatient follow-up. Problems addressed as follows: Abdominal pain in the setting infection: Initial suspicion for appendicitis gi elizabeth location of pain. MRI obtained with no inflammation or appendicitis. No pyelonephritis. No acute findings. No indication for surgery. Flu A positive -Initiated on Tamiflu 75 mg twice daily. Will complete 5 days total therapy. Stable on room air during admission. Continue symptomatic management with Tylenol as needed for fever or headache. UTI: -Catheterized urine obtained after admission. Concerning for UTI given presence of bacteria, white cells, leuk esterase. Initiated on ceftriaxone once on day of discharge. Transition to Macrobid 100mg twice daily to complete 7 days total of therapy. Urine culture still pending at discharge. White count remained normal at 6.2, hemoglobin 11.7. Kidney function normal with BUN 6, creatinine 0.5. Stable to discharge home with follow-up with obstetrics in the next week. : 19 weeks gestation. No issues during admission. Continue vitamin Total time spent on discharge 32 minutes in counseling, documentation, chart review, and direct care with patient. Exam Data for Last 24 hours Vital signs and Labs for Last 24 Hours: Temp Pulse Resp BP Pulse Ox O2 Del Method 98.1 F 93 H 17 127/66 97 Room Air 06/30/24 08:00 06/30/24 08:00 06/30/24 08:00 06/30/24 08:00 06/30/24 08:00 06/30/24 08:20 Laboratory Results - last 24 hr 06/29/24 05:31: Hepatitis C Antibody Non reactive, HIV 1&2 Antibody Rapid Nonreactive 06/29/24 15:27: Urine Color Yellow, Urine Appearance Clear, Urine pH 6.0, Ur Specific [place] 1.025, Urine Protein Negative, Urine Glucose (UA) Negative, Urine Ketones 3+, Urine Blood Negative, Urine Nitrate Negative, Urine Bilirubin Negative, Urine Urobilinogen 1.0, Ur Leukocyte Esterase Trace, Urine RBC 3-5, Urine WBC 5-10, Ur Squamous Epith Cells 10-20, Urine Bacteria 1+, Urine Mucus 4+ 06/30/24 06:08: WBC 6.2 D, RBC 4.09 L, Hgb 11.7 L, Hct 33.9 L, MCV 82.9, MCH 28.7, MCHC 34.6, RDW 15.0, Plt Count 276, MPV 8.3, Neut % (Auto) 75.6, Lymph % (Auto) 17.5, Harvey % (Auto) 6.0, Eos % (Auto) 0.3, Baso % (Auto) 0.5, Neut # (Auto) 4.7, Lymph # (Auto) 1.1, Harvey # (Auto) 0.4, Eos # (Auto) 0.0, Baso # (Auto) 0.0, Sodium 136, Potassium 3.0 L, Chloride 107, Carbon Dioxide 21 L, Anion Gap 11.0, BUN 6 L D, Creatinine 0.50 L, Estimated Creat Clear 212, Estimated GFR 154, Est GFR ( Amer) 187 D, Glucose 118 H, Calcium 8.6, Magnesium 1.9, Total Bilirubin 0.5, AST 25, ALT 23 D, Alkaline Phosphatase 56, Total Protein 5.8 L, Albumin 3.3 L D, Globulin 2.5, Albumin/Globulin Ratio 1.3 I & O for Last 24 hours: Intake & Output 06/27/24 06/28/24 06/29/24 06/30/24 23:59 23:59 23:59 23:59 Intake Total 1240 / 1240 50 / 50 Output Total 0 / 0 0 / 0 Balance 1240 / 1240 50 / 50 Weight 77.366 kg 75.931 kg Constitutional Constitutional: no acute distress, obese and cooperative *Routine HEENT Exam Head: Present normocephalic Eye: Present EOMI and PERRL ENT: Present mucous membranes moist *Routine Neck Exam Neck: Present supple; Absent lymphadenopathy *Routine Respiratory Exam Respiratory: Present CTA bilaterally; Absent respiratory distress, rhonchi, wheezes or crackles *Routine Cardiovascular Exam Cardiovascular: Present tachycardia Comments: Regular rhythm *Routine Abdominal Exam Abdominal: Present soft, normoactive bowel sounds and tenderness (Worse in right lower abdomen compared to left) Comments: Gravid *Routine Rectal Exam Patient deferred: visual exam *Routine Exam Patient deferred: external exam *Routine Extremities Exam Extremities: Absent cyanosis, clubbing or edema *Routine Skin Exam Skin: Present intact and warm; Absent rash *Routine Neurological Exam Neurological: Present alert, oriented X3 and moving all extremities; Absent altered mental status Results Data Completed and Pending Labs on day of discharge: Labs from last 24 hours 06/30/24 06/29/24 06/29/24 06:08 15:27 05:31 WBC 6.2 D RBC 4.09 L Hgb 11.7 L Hct 33.9 L MCV 82.9 MCH 28.7 MCHC 34.6 RDW 15.0 Plt Count 276 MPV 8.3 Neut % (Auto) 75.6 Lymph % (Auto) 17.5 Harvey % (Auto) 6.0 Eos % (Auto) 0.3 Baso % (Auto) 0.5 Neut # (Auto) 4.7 Lymph # (Auto) 1.1 Harvey # (Auto) 0.4 Eos # (Auto) 0.0 Baso # (Auto) 0.0 Sodium 136 Potassium 3.0 L Chloride 107 Carbon Dioxide 21 L Anion Gap 11.0 BUN 6 L D Creatinine 0.50 L Estimated Creat Clear 212 Estimated GFR 154 Est GFR ( Amer) 187 D Glucose 118 H Calcium 8.6 Magnesium 1.9 Total Bilirubin 0.5 AST 25 ALT 23 D Alkaline Phosphatase 56 Total Protein 5.8 L Albumin 3.3 L D Globulin 2.5 Albumin/Globulin Ratio 1.3 Urine Color Yellow Urine Appearance Clear Urine pH 6.0 Ur Specific [place] 1.025 Urine Protein Negative Urine Glucose (UA) Negative Urine Ketones 3+ Urine Blood Negative Urine Nitrate Negative Urine Bilirubin Negative Urine Urobilinogen 1.0 Ur Leukocyte Esterase Trace Urine RBC 3-5 Urine WBC 5-10 Ur Squamous Epith Cells 10-20 Urine Bacteria 1+ Urine Mucus 4+ Hepatitis C Antibody Non reactive HIV 1&2 Antibody Rapid Nonreactive DS: Diagnosis Discharge Diagnosis (1) 18 weeks gestation of : Status: Acute Code(s): Z3A.18 - 18 weeks gestation of (2) Influenza A: Status: Acute Code(s): J10.1 - Influenza due to other identified influenza virus with other respiratory manifestations (3) UTI (urinary tract infection): Status: Acute Code(s): N39.0 - Urinary tract infection, site not specified Qualifiers: Hematuria presence: without hematuria Urinary tract infection type: acute cystitis Qualified Code(s): N30.00 - Acute cystitis without hematuria (4) Back pain affecting : Status: Acute Code(s): O99.891 - Other specified diseases and conditions complicating ; M54.9 - Dorsalgia, unspecified (5) Abdominal pain affecting : Status: Acute Code(s): O26.899 - Other specified related conditions, unspecified trimester; R10.9 - Unspecified abdominal pain Meds Home Medications and Allergies Home Medications ?Medication ?Instructions ?Recorded ?Confirmed ?Type aspirin 81 mg chewable tablet 81 mg PO DAILY 05/26/24 06/29/24 History vits no.126-ferrous fum 1 tab PO DAILY 05/26/24 06/29/24 History 28 mg iron-folic acid 800 mcg tablet (Classic ) ondansetron 4 mg disintegrating 4 mg PO Q8H #30 tabs 05/31/24 06/29/24 Rx tablet cetirizine 10 mg tablet 10 mg PO DAILY 06/29/24 06/29/24 History nitrofurantoin 100 mg PO BID 6 days #12 caps 06/30/24 Rx monohydrate/macrocrystals 100 mg capsule (Macrobid) oseltamivir 75 mg capsule (Tamiflu) 75 mg PO BID 4 days #7 caps 06/30/24 Rx New Prescriptions to Start Prescriptions: nitrofurantoin monohyd/m-cryst [Macrobid] Mj Meléndez oseltamivir [Tamiflu] Mj Meléndez Allergies Allergy/AdvReac Type Severity Reaction Status Date / Time Penicillins Allergy Severe Anaphylaxis Verified 06/22/24 14:57 povidone-iodine (From AdvReac Mild Itching Verified 06/22/24 14:57 Betadine) soap (From Betadine) AdvReac Mild Itching Verified 06/22/24 14:57 Discharge Plan Disposition Patient Disposition: Home, Self-Care Follow up Plan Follow up with: Jessica Bailey DO [Staff Physician] - 07/14/24 9:30 am (please schedule for 07/14) Prescriptions/Medication Reconciliation: New oseltamivir [Tamiflu] 75 mg Capsule 75 mg PO BID 4 Days Qty: 7 0RF nitrofurantoin monohyd/m-cryst [Macrobid] 100 mg capsule 100 mg PO BID 6 Days Qty: 12 0RF Rx Instructions: must administer with a meal/food Continued aspirin 81 mg tablet,chewable 81 mg PO DAILY Classic 28 mg iron- 800 mcg tablet 1 tab PO DAILY ondansetron 4 mg tablet,disintegrating 4 mg PO Q8H Qty: 30 1RF cetirizine 10 mg tablet 10 mg PO DAILY Problem Reconciliation Problems Reviewed?: Yes Patient Discharge Instructions ACTIVITY: Continue current activity DIET: continue same diet Patient Instructions: DI for Influenza -- Adult Print Language: Macedonian Providers Primary Care Provider: Julio Schmitz Admit Provider: Veronica Rajput Attending Provider: Veronica Rajput
--- NOTE | 2024-07-03 10:26 | SW/DCPLANNER ---
Spoke with patient on the phone and patient stated that she is doing well since the DC. Patient stated that she was able to get her new medicine filled and that she is aware of the follow up appointment with her MD. No concerns or questions at this time. Alina Ochoa
== END 2024-06-30 10:31 | disposition home or self-care (01) ==
LOC: ER 09:24 → 2ND 09:49
PROVIDERS: Emergency Medicine; Internal Medicine Adolescent Medicine; Admitting Provider Obstetrics & Gynecology; Emergency Provider Emergency Medicine; PCP Internal Medicine Adolescent Medicine; Visit Provider Obstetrics & Gynecology
DX: O23.42 Unspecified infection of urinary tract in pregnancy, second trimester (principal); J10.1 Influenza due to other identified influenza virus with other respiratory manifestations; N39.0 Urinary tract infection, site not specified; Z3A.19 19 weeks gestation of pregnancy; O98.512 Other viral diseases complicating pregnancy, second trimester; B33.8 Other specified viral diseases; M54.9 Dorsalgia, unspecified; R50.9 Fever, unspecified
CPT/HCPCS: 36415; 72195; 74181; 80053; 81001; 83605; 83690; 83735; 85007; 85025; 85027; 86140; 86803; 87086; 87389; 87636; 99285; G0378; J0696; J2550; J7030; Q0162

== ENCOUNTER 2024-07-14 13:51 | Outpatient (CLI) | payer OTHER, SELFPAY ==
--- NOTE | 2024-07-14 13:52 | US_ITS ---
PROCEDURE: US OB /MATERNAL DETAIL CLINICAL INDICATION: 20 week + Anatomy Scan-US OB Complete COMPARISON: MR MR ABDOMEN WO CON from 06/29/2024 MR MR PELVIS WO CON from 06/29/2024 FINDINGS: Transabdominal sonographic images of the pelvis were obtained. From her established due date she is 20 weeks 0 days. Single viable intrauterine gestation. Breech position. Placenta: Anteriorplacenta grade 1. A placental [place] is seen. There is an average amount of fluid. The cervix appears satisfactory. Closed and measuring 4.06 cm in length. Complete survey performed and was unremarkable on the submitted images as in PACS. No discrete anomalies identified on survey imaging by technologist. Active fetus. Three-vessel cord with satisfactory umbilical cord insertion. 4- chamber heart noted. Situs, aortic arch, LVOT, RVOT, three-vessel view appear normal. Survey of brain & ventricles Unremarkable. Cerebellum, thalamus, choroid plexus, cisterna magna appear normal. Face and neck survey unremarkable. Profile, nasion, lips and nose appeared normal. Diaphragm and chest views unremarkable. Abdomen: Both kidneys noted and unremarkable. Stomach and bladder noted and satisfactory. Spine: Survey of the spine satisfactory with no anomalies identified nor imaged. Cervical, thoracic, lower spine appear normal. Both arms and legs noted. Amniotic Fluid: Adequate. MVP 4.98 cm Measurements: Average ultrasound age 20weeks 1day. Estimated due date by ultrasound age 0411/30/2024. Estimated weight 328g BPD = 20weeks 2days HC = 19weeks 6days AC = 20weeks 0days FL = 20weeks 2days Growth Percentile= 47 Heart Rate = 153bpm Cerebellum = 19weeks 5days Humerus = 20weeks 0days HC/AC is 1.17 FL/BPD is 0.69 FL/AC is 0.22 IMPRESSION: 1. Viable fetus in the breech presentation with an anterior placenta with a lateral wrap. 2. The fluid is within normal limits, MVP 4.98 cm. 3. Anatomical scan appears normal. 4. profile views were incomplete due to position. Suggest repeat scan in 2-3 weeks. 5. biometry is consistent with the dates. Dictated by: Benjamin Preston MD 07/15/2024 06:27 Benjamin Preston MD in [facility] 07/15/2024 06:27
== END 2024-07-14 23:59 | disposition home or self-care (01) ==
LOC: RAD 13:52
PROVIDERS: PCP Internal Medicine Adolescent Medicine; Visit Provider Obstetrics & Gynecology
DX: Z36.3 Encounter for antenatal screening for malformations (principal); O26.892 Other specified pregnancy related conditions, second trimester; O13.2 Gestational [pregnancy-induced] hypertension without significant proteinuria, second trimester; Z3A.20 20 weeks gestation of pregnancy; Z67.91 Unspecified blood type, Rh negative; Z87.59 Personal history of other complications of pregnancy, childbirth and the puerperium
CPT/HCPCS: 76811

== ENCOUNTER 2024-08-07 10:14 | Outpatient (CLI) | payer OTHER, SELFPAY ==
--- NOTE | 2024-08-07 10:15 | US_ITS ---
PROCEDURE: US OB >= 14 WEEKS FETUS CLINICAL INDICATION: 2-3 week repeat anatomy; profile COMPARISON: US US OB /MATERNAL DETAIL from 07/14/2024 FINDINGS: Transabdominal sonographic images of the pelvis were obtained. The following parameters are obtained: From her established due date she is 23weeks 3days Viable fetus in the breech presentation with an anterior, laterally wrapped placenta grade 1. The cervix measures 3.66 cm heart rate: 156bpm bpm. Amniotic fluid: Appears normal No obvious anomalies evident. profile seen, nasion, stomach, bladder, kidneys, three-vessel cord, four chamber heart appear normal. IMPRESSION: 1. Viable fetus in the breech presentation with an anterior laterally lap placenta grade 1. 2. The fluid is within normal limits. 3. Limited anatomical scan appears normal today. 4. profile and nasion were seen and appear normal. Dictated by: Benjamin Preston MD 08/07/2024 13:58 Benjamin Preston MD in [facility] 08/07/2024 13:58
== END 2024-08-07 23:59 | disposition home or self-care (01) ==
LOC: RAD 10:14
PROVIDERS: PCP Pediatrics; Visit Provider Obstetrics & Gynecology
DX: Z34.92 Encounter for supervision of normal pregnancy, unspecified, second trimester (principal); Z3A.23 23 weeks gestation of pregnancy
CPT/HCPCS: 76805

== ENCOUNTER 2024-09-04 08:45 | Outpatient (CLI) | payer OTHER, SELFPAY ==
[2024-09-04 10:18] LABS: Basophils # 0.1 K/mm3 (0-0.2); Basophils % 0.5 % (0.1-2.0); Eosinophils # 0.1 K/mm3 (0.0-0.4); Eosinophils % 0.8 % (0.1-12.0); Hematocrit 35.2 % (37.0-47.0); Hemoglobin 11.7 g/dL (12.2-16.2); Lymphocytes # 1.9 K/mm3 (0.7-4.5); Lymphocytes % 15.6 % (10-50); Mean Corpuscular HGB Conc 33.2 g/dL (31.8-35.4); Mean Corpuscular Hemoglobin 27.2 pg (27.0-31.2); Mean Corpuscular Volume 81.9 fl (81-99); Mean Platelet Volume 10.1 fl (7.4-10.4); Monocytes # 0.5 K/mm3 (0.1-1.0); Monocytes % 3.7 % (1.7-9.3); Neutrophils # 9.7 K/mm3 (1.8-7.8); Neutrophils % 78.7 % (37.0-80.0); Platelet Count 366 K/mm3 (142-424); Red Cell Distribution Width 12.3 % (11.5-17.5); White Blood Count 12.4 K/mm3 (4.8-10.8)
[2024-09-04 10:19] LABS: Glucose 1 Hour 122 mg/dL (74-100)
[2024-09-04 10:51] LABS: Thyroid Stimulating Hormone 0.67 uIU/mL (0.465-4.68)
[2024-09-05 14:05] LABS: RPR W/RFX Titers Nonreactive (Nonreactive)
== END 2024-09-04 23:59 | disposition home or self-care (01) ==
PROVIDERS: PCP Pediatrics; Visit Provider Obstetrics & Gynecology
DX: Z34.90 Encounter for supervision of normal pregnancy, unspecified, unspecified trimester (principal)
CPT/HCPCS: 36415; 82947; 84443; 85025; 86592

== ENCOUNTER 2024-09-11 09:30 | Outpatient (CLI) | payer OTHER, SELFPAY ==
[2024-09-11] MEDS: RHO(D) IMMUNE GLOBULIN 1,500 UNIT (300MCG) SYRINGE 300 MCG IM (09:36)
[2024-09-11 09:42] VITALS: BP 135/84; PULSE 133; RESP 18; O2SAT 97
== END 2024-09-11 09:42 | disposition home or self-care (01) ==
LOC: INF 09:31
PROVIDERS: PCP Pediatrics; Visit Provider Obstetrics & Gynecology
DX: O26.899 Other specified pregnancy related conditions, unspecified trimester (principal); Z67.91 Unspecified blood type, Rh negative; Z3A.27 27 weeks gestation of pregnancy
CPT/HCPCS: 96372; J2790

== ENCOUNTER 2024-09-29 16:52 | Outpatient (CLI) | payer OTHER, SELFPAY ==
[2024-09-29] VITALS (8 sets, daily range): BP systolic 120–132; BP diastolic 70–86; PULSE 101–124; RESP 16; O2SAT 95; BMI 34.5; BMI 34.9
[2024-09-29 17:09] LABS: Microscopic, Urine URINE MICROSCOPIC (MICROSCOPIC)
[2024-09-29 17:10] LABS: Appearance,Urine SL CLOUDY (Clear); Bilirubin,Urine Negative (Negative); Blood, Urine Negative (Negative); Color,Urine YELLOW (Yellow); Glucose,Urine (UA) 1+ (Negative); Ketones,Urine Negative (Negative); Leukocyte Esterase,Urine 2+ (Negative); Nitrate,Urine Negative (Negative); Protein,Urine TRACE (Negative); Specific Gravity, Urine 1.025 (1.005-1.030); Urobilinogen,Urine 0.2 EU/dl (0.2)
[2024-09-29 17:17] LABS: Bacteria,Urine 1+ /lpf
--- NOTE | 2024-09-29 17:19 | ECG_ITS ---
APPROVED REPORT Exam: Resting ECG HR:116 bpm ECG Measurements Heart Rate 116 AXES CA 124 P 50 QRSd 81 QRS 1 QT 285 T 23 QTc 354 Conclusion SINUS TACHYCARDIA MODERATE VOLTAGE CRITERIA FOR LVH, CONSIDER NORMAL VARIANT [MEETS CRITERIA IN ONE OF: R(aVL), S(V1), R(V5), R(V5/V6)+S(V1)] POSSIBLE ANTERIOR MYOCARDIAL INFARCTION , PROBABLY OLD [30 ms Q WAVE IN V3/V4, OR R < 0.2 mV IN V4] ABNORMAL RHYTHM ECG UNCONFIRMED REPORT Electronically signed by : Julio Schmitz MD 09/30/2024 19:55:39
[2024-09-29 17:22] LABS: Amphetamine/Metha Screen,Urine Negative ng/ml (<1000)
[2024-09-29 17:23] LABS: Barbiturates Screen,Urine Negative ng/ml (<200); Benzodiazepines Screen,Urine Negative ng/ml (<200)
[2024-09-29 17:24] LABS: Cannabinoid Screen,Urine Negative ng/ml (<50)
[2024-09-29 17:25] LABS: Cocaine Screen,Urine Negative ng/ml (<300)
--- NOTE | 2024-09-29 17:25 | PC.NURSE ---
EKG Obtained per RT. EKG read per Dr. Olivarez in ER.
[2024-09-29 17:26] LABS: Methadone Screen,Urine Negative ng/ml (<300); Phencyclidine Screen,Urine Negative ng/ml (<25)
[2024-09-29 17:27] LABS: Opiate Screen,Urine Negative ng/ml (<300)
[2024-09-29] MEDS: METOPROLOL SUCCINATE XL 50MG TABLET 50 MG PO (17:45)
== END 2024-09-29 20:22 | disposition home or self-care (01) ==
LOC: OBOUT 16:53 → OB 16:54
PROVIDERS: PCP Pediatrics; Visit Provider Obstetrics & Gynecology
DX: O16.3 Unspecified maternal hypertension, third trimester (principal); Z3A.31 31 weeks gestation of pregnancy
CPT/HCPCS: 80307; 81001; 87086; 93005; G0463

== ENCOUNTER 2024-10-11 11:53 | Outpatient (CLI) | payer OTHER, SELFPAY | END 2024-10-11 23:59 | disposition home or self-care (01) | LOC: RT 11:53 | PROVIDERS: PCP Pediatrics; Visit Provider Physician Assistant | DX: R00.0 Tachycardia, unspecified (principal); R00.2 Palpitations | CPT/HCPCS: 93270 ==

== ENCOUNTER 2024-10-18 08:43 | Outpatient (CLI) | payer OTHER, SELFPAY ==
--- NOTE | 2024-10-18 08:47 | CA_ITS ---
APPROVED REPORT EXAM: Comprehensive 2D, Doppler, and color-flow Echocardiogram Pharmacy Technician Program Director: Lucia Suarez, RCS, RVS Ht: 5 ft 2 in Wt: 183lbs BSA: 1.84 BP: 112/77 mmHg Indications: Palpitations, Tachycardia, Echo Enhancing Agent Comments: Patient experienced a hot flushing sensation and becam nauseated and test was paused 2D Dimensions Aortic Root 2.66 cm F: 2.7 - 3.3 EF AP4 61.70 % Left Atrium 2.88 cm F: 2.7 - 3.8 GL Strain -19.4 % LVOT 1.95 cm (M/F) 1.5-2.5 M-Mode Dimensions RVDd 2.39 cm (0.9-2.6) LVDd 4.78 cm (3.5-5.7) Ao Diam 2.79 cm (2.0-3.7) LVDs 2.62 cm (3.5-5.7) IVSd 0.74 cm (0.6-1.1) PWd 0.81 cm (0.6-1.1) EF (Teich) 76.40% EPSs 0.81 cm FS 45.20% EDV (Teich) 106.50 mL TAPSE 2.40 (<1.7) ESV (Teich) 25.10 mL LV Diastology E Decel Time 292 (160-240 msec) E/A Ratio 1.3 MED E' 11.1 (>= 7 cm/sec) MED A' 6.70 cm/s E'/MED E' Ratio 2.49 (<= 14) LAT E' 7.8 (>= 10 cm/sec) LAT A' 4.30 cm/s E/LAT E' Ratio 3.54 (<= 14) Aortic Valve LVOT Max 80.0 (70-110 cm/s) LUIS ENRIQUE Index 1.07 cm2/m2 LVOT VTI 16.10 cm AoV Peak Ashwin. 138.0 (50-130 cm/s) AO Mean GR. 3.80 (<5 mmHg) AO VTI 24.5 (18-25 cm) LUIS ENRIQUE (VTI) 1.96 (2.5-4.5 cm2) Mitral Valve MV E Max Ashwin. 28.0 (40-130 cm/s) MV A Velocity 22.0 (40-130 cm/s) E/A Ratio 1.23 MV Decel. Time 292 (160-240 ms) Left Ventricle The left ventricle is normal size. The left ventricular systolic function is normal. The left ventricular ejection fraction is within the normal range. There is normal left ventricular wall thickness. There is normal LV segmental wall motion. The left ventricular diastolic function is normal. LVEF is 60%. Right Ventricle The right ventricle is normal size. The right ventricular systolic function is normal. Atria The left atrium size is normal. The right atrium size is normal. There is no Doppler evidence of interatrial shunt. Aortic Valve The aortic valve opens well. There is no aortic valvular stenosis. No aortic regurgitation is present. Mitral Valve The mitral valve is normal in structure. No evidence of mitral valve stenosis. There is no mitral valve regurgitation noted. Tricuspid Valve Tricuspid valve is grossly normal in structure and function. Trace tricuspid regurgitation. There is insufficient TR jet to estimate RVSP. Trace pulmonic regurgitation. Pulmonic Valve The pulmonary valve is normal in structure. Great Vessels The aortic root is normal in size. IVC is normal in size and collapses >50% with inspiration. Pericardium There is no pericardial effusion. Other Information Study Quality: Adequate Conclusion Normal biventricular systolic function. No significant valvular stenosis or regurgitation. Electronically signed by : Marilyn Conway MD 10/24/2024 12:26:57
== END 2024-10-18 23:59 | disposition home or self-care (01) ==
LOC: RT 08:43
PROVIDERS: Visit Provider Physician Assistant
DX: R00.0 Tachycardia, unspecified (principal); R00.2 Palpitations
CPT/HCPCS: 93306

== ENCOUNTER 2024-11-03 11:00 | Outpatient (CLI) | payer OTHER, SELFPAY | END 2024-11-03 23:59 | disposition home or self-care (01) | LOC: LAB.DROPOF 11-04 11:10 | PROVIDERS: PCP Obstetrics & Gynecology; Visit Provider Obstetrics & Gynecology | DX: Z34.83 Encounter for supervision of other normal pregnancy, third trimester (principal) | CPT/HCPCS: 86403 ==

== ENCOUNTER 2024-11-22 08:20 | Inpatient (IN) | payer OTHER, SELFPAY ==
[2024-11-22 06:59] VITALS: BMI 35.1
[2024-11-22 07:17] VITALS: BP 136/87; PULSE 86; RESP 18; TEMP 36.6; O2SAT 100; BMI 35.1
[2024-11-22 07:42] LABS: Microscopic, Urine URINE MICROSCOPIC (MICROSCOPIC)
[2024-11-22 07:43] LABS: Appearance,Urine SL CLOUDY (Clear); Bilirubin,Urine Negative (Negative); Blood, Urine TRACE-L (Negative); Color,Urine YELLOW (Yellow); Glucose,Urine (UA) Negative (Negative); Ketones,Urine Negative (Negative); Leukocyte Esterase,Urine 3+ (Negative); Nitrate,Urine Negative (Negative); Protein,Urine Negative (Negative); Urobilinogen,Urine 0.2 EU/dl (0.2)
[2024-11-22 08:05] LABS: Bacteria,Urine 4+ /lpf; Squamous Epithelial Cell,Urine 20-50 #/hpf (0-5); WBC,Urine TNTC #/hpf (0-3)
--- NOTE | 2024-11-22 08:25 | HMH.PHAINT1 ---
Pharmacy Intervention Comments: MEDICATION RECONCILIATION COMPLETED ON PATIENT USING EXTERNAL FILL HISTORY FROM PHARMACY. -TIP SINCLAIR, KAMLAD
[2024-11-22 09:01] LABS: Basophils # 0.1 K/mm3 (0-0.2); Basophils % 0.4 % (0.1-2.0); Eosinophils # 0.1 K/mm3 (0.0-0.4); Eosinophils % 0.5 % (0.1-12.0); Hematocrit 35.1 % (37.0-47.0); Hemoglobin 11.2 g/dL (12.2-16.2); Lymphocytes % 12.2 % (10-50); Mean Corpuscular HGB Conc 31.9 g/dL (31.8-35.4); Mean Corpuscular Hemoglobin 24.8 pg (27.0-31.2); Mean Corpuscular Volume 77.8 fl (81-99); Mean Platelet Volume 10.2 fl (7.4-10.4); Monocytes # 0.6 K/mm3 (0.1-1.0); Monocytes % 3.8 % (1.7-9.3); Neutrophils # 13.6 K/mm3 (1.8-7.8); Neutrophils % 82.7 % (37.0-80.0); Nucleated Red Blood Cells # 0 10^3/uL; Nucleated Red Blood Cells % 0 %; Platelet Count 324 K/mm3 (142-424); Red Blood Count 4.51 M/mm3 (4.20-5.40); Red Cell Distribution Width 14.9 % (11.5-17.5); Red Cell Distribution Width-SD 41.3 fL; White Blood Count 16.4 K/mm3 (4.8-10.8)
[2024-11-22 09:02] LABS: MANUAL DIFFERENTIAL MANUAL DIFFERENTIAL (MANUAL DIFF)
[2024-11-22] MEDS: LACTATED RINGERS 1000ML 1,000 ML 500 ML IV (09:10)
--- NOTE | 2024-11-22 09:26 | EXP.OB.APHP ---
OB - H&P: HPI Antepartum History of Present Illness Chief complaint: Painful uterine contractions History of present illness: Mrs Alicia Hernandez is a 24 yo at 39w0d who presents to [facility] L&D with complaint of regular, painful contractions. She has been having irregular contractions and pelvic pressure for the past few weeks. She reports around 0200 this morning contractions became regular and more painful. She has had good care. Baby is active. She has history of PVCs and PACs with this . History of gestational hypertension with her last . History of Present Criteria for establishing EDC:: based on 1st trimester US only care: good care Ultrasounds: normal mid trimester US Obstetrical complications: none Medical complications: none Labs Blood type: O (-) negative Rubella: immune RPR/VDRL: nonreactive GBS status: negative HBsAG: negative PFSH PFS Disclaimer: The information contained in this section may have been updated after the patient was seen, as this information can be updated by other users. Medical History (Updated 11/22/24 @ 09:36 by Jessica Bailey DO) 39 weeks gestation of Active labor Vaginal discharge during Sinus tachycardia Headache Rh negative state in antepartum period Nausea and vomiting of , antepartum History of gestational hypertension PCOS (polycystic ovarian syndrome) Irregular periods Dysmenorrhea Abnormal uterine bleeding (AUB) Status post normal vaginal delivery Gestational hypertension History of PCOS History of ankle fracture Surgical History History of ankle surgery Rachel teeth extracted H/O adenoidectomy Hx of tonsillectomy Family History Other Diabetes Heart attack Hyperlipidemia Hypertension Thyroid disorder Social History Smoking Status: Never smoker second hand exposure: No alcohol intake: never substance use type: denies use current occupational status: unemployed Travel in the last 8 weeks: None current occupational exposures/hazards: No caffeine: Yes Other Medical History Have you received the Flu Vaccine for this season: No Have you received the Pneumonia Vaccine: No Review of Systems Review of Systems Review of systems:: pertinent systems reviewed and negative unless documented below *Genitourinary Comments: + regular, painful uterine contractions Meds Home Medications and Allergies Home Medications ?Medication ?Instructions ?Recorded ?Confirmed ?Type vits no.126-ferrous fum 1 tab PO DAILY 05/26/24 11/22/24 History 28 mg iron-folic acid 800 mcg tablet (Classic ) metoprolol succinate 50 mg 50 mg PO DAILY #30 tabs 09/30/24 11/22/24 Rx tablet,extended release 24 hr ondansetron 4 mg disintegrating 4 mg PO Q8HP PRN Nausea And 11/22/24 11/22/24 History tablet Vomiting New Prescriptions to Start Prescriptions: Allergies Allergy/AdvReac Type Severity Reaction Status Date / Time Penicillins Allergy Severe Anaphylaxis Verified 11/21/24 15:28 povidone-iodine (From AdvReac Mild Itching Verified 11/21/24 15:28 Betadine) soap (From Betadine) AdvReac Mild Itching Verified 11/21/24 15:28 OB - H&P: Exam Physical Exam Vital signs: Temp Pulse Resp BP Pulse Ox O2 Del Method 97.8 F 86 18 136/87 100 Room Air 11/22/24 07:17 11/22/24 07:17 11/22/24 07:17 11/22/24 07:17 11/22/24 07:17 11/22/24 07:17 Constitutional no acute distress and cooperative Routine HEENT Exam Head: Present normocephalic and atraumatic Eye: Absent conjunctivae pink ENT: Present mucous membranes moist Routine Neck Exam Present full ROM Routine Respiratory Exam Present CTA bilaterally and normal respiratory effort Routine Cardiovascular Exam Present RRR Routine Abdominal Exam Present soft (Gravid); Absent tenderness Routine Rectal Exam Patient deferred: digital exam Routine Exam External: Present normal urethra appearance; Absent erythema, tenderness, lesions or lacerations Routine Extremities Exam Present full ROM; Absent edema or calf tenderness Routine Neurological Exam Present alert, moving all extremities and normal speech Routine Psychiatric Exam Present normal affect and cooperative Detailed Labor and Delivery Exam Dilation (cm): 7 Effacement (%): 90 Cervix position: mid station: 0 Consistency: soft Membranes: artificially ruptured Amniotic fluid: clear Baseline heart rate: 145 monitor accelerations: Present monitor decelerations: Variable terminal gauger supervisor variability: Average (6-10) Contraction frequency (min): 4 OB - Results Labs Labs: Short CBC 11/22/24 Range/Units 08:48 WBC 16.4 H (4.8-10.8) K/mm3 Hgb 11.2 L (12.2-16.2) g/dL Hct 35.1 L (37.0-47.0) % Plt Count 324 (142-424) K/mm3 Urine 11/22/24 Range/Units 07:15 Urine Color Yellow (Yellow) Urine Appearance Sl cloudy (Clear) Urine pH 6.0 (5.0-8.5) Ur Specific [place] 1.020 (1.005-1.030) Urine Protein Negative (Negative) Urine Glucose (UA) Negative (Negative) OB - A/P Antepartum (1) Active labor: Status: Acute (2) 39 weeks gestation of : Status: Acute (3) Rh negative state in antepartum period: Status: Acute (4) History of gestational hypertension: Status: Acute Additional Plan Additional Information:: Admit to [facility] for active labor GBS negative Close monitoring Anticipate
[2024-11-22] MEDS: DEXTROSE 5%-LACTATED RINGERS 1,000 ML 125 ML IV (09:27)
[2024-11-22 09:36] LABS: Lymphocytes % 8 % (10-50); Monocytes % 1 % (2-9); Neutrophils % 91 % (42-76); Total Cells Counted 100
[2024-11-22 09:37] LABS: Platelet Estimate Normal; RBC Morphology Normal
[2024-11-22] MEDS: OXYTOCIN/RINGERS LACTATE 30 UNITS/500 ML BAG 40 UNITS IV (10:02)
--- NOTE | 2024-11-22 10:16 | EXP.DN ---
Delivery Note Delivery Date:: 11/22/24 Delivery Time:: 09:54 Anesthesia Type: Local Was labor medically induced?: No Induction method: none Gestational age (weeks): 39 delivered prior to 39 weeks?: No Infant Gender: Female at 1 minute: 7 at 5 minutes: 9 LAC or MLE?: LAC Delivery Procedure:: Mom complete without epidural. Pushed for approximately one contraction. Head delivered spontaneously over intact perineum in TOBIN position. No nuchal cord. Anterior shoulder delivered with gentle downward pressure. Posterior shoulder and remainder of body delivered spontaneously. Baby placed on maternal abdomen, mouth and nares bulb suctioned, warmed/dried and stimulated. Delayed cord clamping was performed for 120 seconds. Cord was clamped and cut by father of baby. Cord blood was obtained. Placenta delivered spontaneously and intact. Small second degree perineal laceration repaired with 3-0 Vicryl. Hemostasis noted. Mom and baby were skin to skin and doing well after delivery. Live female baby (baby's name is Liliya) APGARs 7 (1 min), 9 (5 min) EBL 50 mL Placental Delivery Description: Spontaneous
[2024-11-22] MEDS: ACETAMINOPHEN 500MG TAB 1000 MG PO ×2 (13:05→20:20)
[2024-11-22] MEDS: IBUPROFEN 400 MG TABLET 800 MG PO (13:05)
[2024-11-22] MEDS: WITCH HAZEL 40 PADS/BOX 1 EACH TP (13:30)
[2024-11-22] MEDS: BENZOCAINE-MENTHOL SPRAY 56GM CAN TP (13:31)
[2024-11-22 16:20] VITALS: BP 125/84; PULSE 77; RESP 18; TEMP 36.8; O2SAT 99
[2024-11-22 20:19] VITALS: BP 131/84; PULSE 78; RESP 16; TEMP 36.9; O2SAT 99
[2024-11-22 23:40] LABS: RPR W/RFX Titers Nonreactive (Nonreactive)
[2024-11-23 04:26] VITALS: BP 126/86; PULSE 82; RESP 19; TEMP 36.9; O2SAT 98
[2024-11-23] MEDS: IBUPROFEN 400 MG TABLET 800 MG PO (04:29)
[2024-11-23 06:56] LABS: Basophils # 0.1 K/mm3 (0-0.2); Basophils % 0.3 % (0.1-2.0); Eosinophils # 0.2 K/mm3 (0.0-0.4); Hematocrit 30.9 % (37.0-47.0); Hemoglobin 10.1 g/dL (12.2-16.2); Lymphocytes # 2.1 K/mm3 (0.7-4.5); Lymphocytes % 13.9 % (10-50); Mean Corpuscular HGB Conc 32.7 g/dL (31.8-35.4); Mean Corpuscular Hemoglobin 25.5 pg (27.0-31.2); Mean Platelet Volume 10.3 fl (7.4-10.4); Monocytes # 0.6 K/mm3 (0.1-1.0); Monocytes % 3.7 % (1.7-9.3); Neutrophils # 12.3 K/mm3 (1.8-7.8); Neutrophils % 80.6 % (37.0-80.0); Nucleated Red Blood Cells # 0 10^3/uL; Nucleated Red Blood Cells % 0 %; Platelet Count 308 K/mm3 (142-424); Red Blood Count 3.96 M/mm3 (4.20-5.40); Red Cell Distribution Width 14.8 % (11.5-17.5); Red Cell Distribution Width-SD 40.8 fL; White Blood Count 15.3 K/mm3 (4.8-10.8)
[2024-11-23 07:10] LABS: MANUAL DIFFERENTIAL MANUAL DIFFERENTIAL (MANUAL DIFF)
[2024-11-23 08:35] LABS: Lymphocytes % 14 % (10-50); Neutrophils % 86 % (42-76); Platelet Estimate Normal; RBC Morphology Normal; Total Cells Counted 100
--- NOTE | 2024-11-23 08:44 | EXP.ACUTE.PN ---
Subjective *Date: 11/23/24 *Time: 08:50 Interval history: PPD # 1 s/p Feeling well. Pain controlled. Breast and supplemental feeding. Lochia is appropriate. Voiding without difficulty and passing flatus. Tolerating regular diet. Denies fever/chills, chest pain and shortness of breath. No headaches, vision changes, lightheadedness/dizziness. No lower extremity swelling. Ambulating well ad alina. Medical Exam Vital signs and Labs for Last 24 Hours: Vital Signs Temp Pulse Resp BP Pulse Ox O2 Del Method 11/23/24 04:26 98.5 F 82 19 126/86 98 Room Air 11/22/24 20:19 98.5 F 78 16 131/84 99 Room Air 11/22/24 16:20 98.3 F 77 18 125/84 99 Room Air Laboratory Results - last 24 hr 11/22/24 08:48: WBC 16.4 H, RBC 4.51, Hgb 11.2 L, Hct 35.1 L, MCV 77.8 L, MCH 24.8 L, MCHC 31.9, RDW 14.9, Plt Count 324, MPV 10.2, Neut % (Auto) 82.7 H, Lymph % (Auto) 12.2, [place] % (Auto) 3.8, Eos % (Auto) 0.5, Baso % (Auto) 0.4, Neut # (Auto) 13.6 H, Lymph # (Auto) 2.0, [place] # (Auto) 0.6, Eos # (Auto) 0.1, Baso # (Auto) 0.1, Total Counted 100, Neutrophils % (Manual) 91 H, Lymphocytes % (Manual) 8 L, Monocytes % (Manual) 1 L, Platelet Estimate Normal, RBC Morphology Normal, RPR w/Rflx to Titer Nonreactive, Blood Type O Negative, Antibody Screen Negative 11/23/24 06:45: WBC 15.3 H, RBC 3.96 L, Hgb 10.1 L, Hct 30.9 L, MCV 78.0 L, MCH 25.5 L, MCHC 32.7, RDW 14.8, Plt Count 308, MPV 10.3, Neut % (Auto) 80.6 H, Lymph % (Auto) 13.9, [place] % (Auto) 3.7, Eos % (Auto) 1.0, Baso % (Auto) 0.3, Neut # (Auto) 12.3 H, Lymph # (Auto) 2.1, [place] # (Auto) 0.6, Eos # (Auto) 0.2, Baso # (Auto) 0.1, Total Counted 100, Neutrophils % (Manual) 86 H, Lymphocytes % (Manual) 14, Platelet Estimate Normal, RBC Morphology Normal I & O for Labs for Last 24 Hours: Intake & Output 11/20/24 11/21/24 11/22/24 11/23/24 23:59 23:59 23:59 23:59 Weight 192 lb Head: Present atraumatic and normocephalic ENT: Present normal exam Neck: Present normal inspection and full ROM Respiratory: Present CTA bilaterally and normal respiratory effort Cardiac: Present Reg Rate and Rhythm GI: Present soft; Absent distention or tenderness Rectal (female): Present deferred (female): Present deferred Extremities: Present normal inspection and full ROM; Absent edema or calf tenderness Neuro: Present alert, awake and moves all extremities Assessment and Plan *Assessment and plan (1) Status post normal vaginal delivery: Status: Acute Category: Medical (2) 39 weeks gestation of : Status: Acute Category: Medical Code(s): Z3A.39 - 39 weeks gestation of (3) Active labor: Status: Acute Category: Medical (4) Rh negative state in antepartum period: Status: Acute Category: Medical Code(s): O26.899 - Other specified related conditions, unspecified trimester; Z67.91 - Unspecified blood type, Rh negative (5) Acute blood loss anemia: Status: Acute Category: Medical Code(s): D62 - Acute posthemorrhagic anemia Plan Continue routine care AM Hgb 10.2 Feeling well Baby ABO RH: O negative Plan d/c home tomorrow
[2024-11-23 08:49] VITALS: BP 127/80; PULSE 84; RESP 18; TEMP 36.8; O2SAT 99
--- NOTE | 2024-11-23 16:13 | EXP.DC.SUM ---
General Admission date:: 11/22/24 Discharge date: 11/23/24 HPI HPI HPI: PPD # 1 s/p Feeling well. Pain controlled. Breast and supplemental feeding. Lochia is appropriate. Voiding without difficulty and passing flatus. Tolerating regular diet. Denies fever/chills, chest pain and shortness of breath. No headaches, vision changes, lightheadedness/dizziness. No lower extremity swelling. Ambulating well ad alina. Hospital Course Hospital Course Hospital Course: Mrs Alicia Hernandez is a 24 yo at 39w0d who presents to [facility] L&D with complaint of regular, painful contractions. She has been having irregular contractions and pelvic pressure for the past few weeks. She reports around 0200 this morning contractions became regular and more painful. She has had good care. Baby is active. She has history of PVCs and PACs with this . History of gestational hypertension with her last . She had a normal spontaneous delivery on 11/22/24 at 0954. She delivered a live female baby, Liliya, weighing 6 lb 5 oz. APGARs 7 (1 min), 9 (5 min). EBL 50 mL She did well . Pain controlled. Breast and formula feeding. Lochia appropriate. Voiding without difficulty and passing flatus. Tolerating regular diet. Denies fever/chills, chest pain and shortness of breath. No headaches, dizziness/lightheadedness or vision changes. Vital signs stable, afebrile. Heart regular rate and rhythm. Lungs clear to auscultation. Abdomen soft, nontender. No lower extremity swelling. Ambulating well ad alina. Normal hospital course. She was discharged to home on PPD # 1 with instructions to follow-up in the office in 2 weeks or sooner if needed. Exam Data for Last 24 hours Vital signs and Labs for Last 24 Hours: Temp Pulse Resp BP Pulse Ox O2 Del Method 98.2 F 84 18 127/80 99 Room Air 11/23/24 08:49 11/23/24 08:49 11/23/24 08:49 11/23/24 08:49 11/23/24 08:49 11/23/24 08:49 Laboratory Results - last 24 hr 11/22/24 08:48: RPR w/Rflx to Titer Nonreactive 11/23/24 06:45: WBC 15.3 H, RBC 3.96 L, Hgb 10.1 L, Hct 30.9 L, MCV 78.0 L, MCH 25.5 L, MCHC 32.7, RDW 14.8, Plt Count 308, MPV 10.3, Neut % (Auto) 80.6 H, Lymph % (Auto) 13.9, [place] % (Auto) 3.7, Eos % (Auto) 1.0, Baso % (Auto) 0.3, Neut # (Auto) 12.3 H, Lymph # (Auto) 2.1, [place] # (Auto) 0.6, Eos # (Auto) 0.2, Baso # (Auto) 0.1, Total Counted 100, Neutrophils % (Manual) 86 H, Lymphocytes % (Manual) 14, Platelet Estimate Normal, RBC Morphology Normal I & O for Last 24 hours: Intake & Output 11/20/24 11/21/24 11/22/24 11/23/24 23:59 23:59 23:59 23:59 Weight 192 lb Microbiology Reports for the Last 24 Hours: Microbiology 11/22/24 07:15 Urine,Clean Catch Urine Culture - Preliminary Results Data Completed and Pending Labs on day of discharge: Labs from last 24 hours 11/23/24 11/22/24 06:45 08:48 WBC 15.3 H RBC 3.96 L Hgb 10.1 L Hct 30.9 L MCV 78.0 L MCH 25.5 L MCHC 32.7 RDW 14.8 Plt Count 308 MPV 10.3 Neut % (Auto) 80.6 H Lymph % (Auto) 13.9 [place] % (Auto) 3.7 Eos % (Auto) 1.0 Baso % (Auto) 0.3 Neut # (Auto) 12.3 H Lymph # (Auto) 2.1 [place] # (Auto) 0.6 Eos # (Auto) 0.2 Baso # (Auto) 0.1 Total Counted 100 Neutrophils % (Manual) 86 H Lymphocytes % (Manual) 14 Platelet Estimate Normal RBC Morphology Normal RPR w/Rflx to Titer Nonreactive Preliminary micro results at discharge 11/22/24 07:15 Urine Culture - Preliminary Urine,Clean Catch DS: Diagnosis Discharge Diagnosis (1) Status post normal vaginal delivery: Status: Acute (2) 39 weeks gestation of : Status: Acute Code(s): Z3A.39 - 39 weeks gestation of (3) Active labor: Status: Acute (4) Rh negative state in antepartum period: Status: Acute Code(s): O26.899 - Other specified related conditions, unspecified trimester; Z67.91 - Unspecified blood type, Rh negative (5) Acute blood loss anemia: Status: Acute Code(s): D62 - Acute posthemorrhagic anemia Meds Home Medications and Allergies Home Medications ?Medication ?Instructions ?Recorded ?Confirmed ?Type vits no.126-ferrous fum 1 tab PO DAILY 05/26/24 11/22/24 History 28 mg iron-folic acid 800 mcg tablet (Classic ) metoprolol succinate 50 mg 50 mg PO DAILY #30 tabs 09/30/24 11/22/24 Rx tablet,extended release 24 hr ondansetron 4 mg disintegrating 4 mg PO Q8HP PRN Nausea And 11/22/24 11/22/24 History tablet Vomiting ibuprofen 800 mg tablet 800 mg PO Q8H PRN pain #20 tabs 11/23/24 Rx New Prescriptions to Start Prescriptions: Jessica Perez Allergies Allergy/AdvReac Type Severity Reaction Status Date / Time Penicillins Allergy Severe Anaphylaxis Verified 11/21/24 15:28 povidone-iodine (From AdvReac Mild Itching Verified 11/21/24 15:28 Betadine) soap (From Betadine) AdvReac Mild Itching Verified 11/21/24 15:28 Discharge Plan Disposition Patient Disposition: Home, Self-Care Condition: Good Discharge Order Discharge Orders: Discharge Order (Routine); Ordered 11/23/24 Ordered By: Jessica Bailey Follow up Plan Follow up with: Jessica Bailey DO [Staff Physician] - 12/06/24 1:30 pm Prescriptions/Medication Reconciliation: New ibuprofen 800 mg tablet 800 mg PO Q8H PRN (Reason: pain) Qty: 20 0RF Continued Classic 28 mg iron- 800 mcg tablet 1 tab PO DAILY metoprolol succinate 50 mg tablet extended release 24 hr 50 mg PO DAILY Qty: 30 2RF ondansetron 4 mg tablet,disintegrating 4 mg PO Q8HP PRN (Reason: Nausea And Vomiting) Problem Reconciliation Problems Reviewed?: Yes Patient Discharge Instructions ACTIVITY: Limited activity DIET: continue same diet and regular diet Additional Instructions: Congratulations!! Discharge: 1. Take 800 mg Ibuprofen every 8 hours as needed for pain. You can also take 500-1000 mg of Tylenol in between doses, every 6-8 hours. 2. Nothing in the vagina for 6 weeks - no intercourse, douching or tampons. No tub baths/hot tubs or swimming pools 3. Reasons to return to L&D or call On-Call doctor - fever (greater than 100.4) - heavy vaginal bleeding (soaking through 1 pad in less than 2 hours) - vaginal discharge (malodorous and/or purulent) - severe headaches not resolved by medication or rest and leg tenderness/edema 4. depression/blues - Normal to feel anxious/overwhelmed for first 2 weeks - Talk to your doctor if: severe anxiety, trouble bonding with baby, withdrawing from other family members, thoughts of harming yourself or others Jessica Bailey DO [facility] [phone] Patient Instructions: Depression, Hemorrhage, DI for Labor and Delivery, Vaginal , DI for Pre-eclampsia, [facility] Post Discharge Instructions Print Language: [place] Providers Primary Care Provider: Mauri Madera Admit Provider: Benjamin Preston Attending Provider: Benjamin Preston
== END 2024-11-23 16:47 | disposition home or self-care (01) | DRG 806 ==
LOC: OBOUT 08:20 → OB 08:20
PROVIDERS: Obstetrics & Gynecology; Admitting Provider Nurse Practitioner Obstetrics & Gynecology; PCP Pediatrics; Visit Provider Nurse Practitioner Obstetrics & Gynecology
DX: O70.1 Second degree perineal laceration during delivery (principal); D62 Acute posthemorrhagic anemia; Z37.0 Single live birth; Z3A.39 39 weeks gestation of pregnancy; O90.81 Anemia of the puerperium
CPT/HCPCS: 36415; 59025; 81001; 85007; 85025; 86592; 86850; 87086; 94761; G0283; J7120

== ENCOUNTER 2025-04-21 13:19 | Emergency (ER) | payer OTHER, SELFPAY ==
[2025-04-21] VITALS (10 sets, daily range): BP systolic 118–147; BP diastolic 78–104; PULSE 64–80; RESP 15–18; TEMP 36.7–37.1; O2SAT 98–100; BMI 32.0
--- NOTE | 2025-04-21 13:23 | ED_ITS ---
<Statement entered by Kevin Jaeger MD - 04/21/25 17:09> I was consulted by the YOLIS, and we discussed the complexity of the problems being addressed. I approve the treatment and management plan for this patient's care in the emergency department, thus performing a substantive portion of the medical decision making. Kevin Jaeger MD Discharge Plan Disposition Patient Disposition: Home, Self-Care Prescriptions Prescriptions: New lidocaine [Lidoderm] 5 % adhesive patch,medicated 1 patch topical DAILY Qty: 7 0RF Rx Instructions: leave on most painful area for up to 12 hrs Referrals Follow up/Referrals: Mauri Madera MD [Primary Care Provider, Medical] - See instructions Activity Restrictions/Add. Instructions Additional Instructions/Restrictions: Today you were evaluated in the emergency department for back pain. Your x-rays were unremarkable for any acute fracture. Please use the Lidoderm patches as directed, you may also use acetaminophen and ibuprofen [id number] as directed. Follow-up with your PCP within 1 week. Return to the ED for worsening of condition. Clinical Impressions Clinical Impression: Back pain Instructions Patient Instructions: DI for Low Back Pain Print Language Print Language: French Discharge ED Provider: Kevin Jaeger General Adult HPI General Chief complaint: Back Pain/Injury Stated complaint: AO 04/20/25 @1330 Pain in Back Time Seen by Provider: 04/21/25 13:22 History of Present Illness HPI narrative: patient is a 24-year-old female PMHx PCOS who presents to the ED after a fall that occurred yesterday. Patient states she was playing at the playground with her child when she slipped on the mulch, falling back onto her buttocks, hitting her lower back on a piece of playground equipment in the process. Related Data Previous Rx's ?Medication ?Instructions ?Recorded lidocaine 5 % topical patch 1 patch topical DAILY #7 e a 04/21/25 (Lidoderm) Allergies Allergy/AdvReac Type Severity Reaction Status Date / Time Penicillins Allergy Severe Anaphylaxis Verified 04/17/25 09:16 povidone-iodine (From AdvReac Mild Itching Verified 04/17/25 09:16 Betadine) soap (From Betadine) AdvReac Mild Itching Verified 04/17/25 09:16 [facility] Disclaimer: The information contained in this section may have been updated after the shaylee ent was seen, as this information can be updated by other users. Medical History TFCC (triangular fibrocartilage complex) injury Occult fracture of scaphoid bone of right wrist Peroneal tenosynovitis Acute blood loss anemia Status post normal vaginal delivery 39 weeks gestation of Active labor Vaginal discharge during Sinus tachycardia Headache Rh negative state in antepartum period Nausea and vomiting of , antepartum History of gestational hypertension PCOS (polycystic ovarian syndrome) Irregular periods Dysmenorrhea Abnormal uterine bleeding (AUB) Gestational hypertension History of PCOS History of ankle fracture Surgical History History of ankle surgery [place] teeth extracted H/O adenoidectomy Hx of tonsillectomy Family History Other Diabetes Heart attack Hyperlipidemia Hypertension Thyroid disorder Social History Smoking Status: Never smoker second hand exposure: No alcohol intake: never substance use type: denies use current occupational status: unemployed Travel in the last 8 weeks?: None current occupational exposures/hazards: No caffeine: Yes Have you lived/traveled outside [place] in past 30 days?: No Contact w/someone who lives/traveled outside US past 30 days?: No Exposure to someone with infectious disease in past 14 days?: No Do you have a fever (greater than 100.4 F or 38 C)?: No Have you tested positive for COVID-19?: No Exposed to someone with COVID-19 in past 14 days?: No Do you have a sore throat?: No Do you have a cough?: No Do you have any weakness?: No Do you have any diarrhea?: No Are you experiencing any unusual bleeding?: No Do you have any muscle aches/pain?: No Do you have any abdominal pain?: No Are you experiencing loss of taste or smell?: No Other Medical History Have you received the Flu Vaccine for this season: No Have you received the Pneumonia Vaccine: No ROS Obtained: Yes Systems reviewed as appropriate & no additional complaints except as documented Physical Exam General General appearance: alert Head Head exam: atraumatic Eye Eye exam: Present PERRL and EOMI Respiratory Respiratory exam: Present normal lung sounds bilaterally Cardiovascular Cardiovascular exam: Present regular rate Extremities Exam Extremities exam: Present full ROM Back Exam Back exam: Present full ROM and tenderness (Tender over ecchymosis on T-spine, minimal L-spine tenderness, no step-offs or deformities) Neurological Exam Neurological exam: Present alert, oriented X3 and normal gait; Absent motor sensory deficit Skin Skin exam: Present warm and dry Medical Decision Making Medical Records Screening: Per USPSTF and CDC recommendations, given the prevalence of disease in our region, it is our hospital?s policy to screen for HIV and viral Hepatitis for all patients aged 18 and over and those with ongoing risk factors. Corey Inquiry Pt receiving controlled substance: No Vital Signs: 04/21/25 13:23 04/21/25 13:27 04/21/25 13:28 Temperature 98.1 F Temperature Source Oral Pulse Rate 74 71 Pulse Rate [Right] 80 Respiratory Rate 18 Blood Pressure 147/101 H 140/93 H Blood Pressure [Right Arm] 140/93 H Blood Pressure Mean [Right Arm] 108 Blood Pressure Source [Right Arm] Automatic Cuff Blood Pressure Position [Right Arm] Supine 02 Sat by Pulse Oximetry 100 100 100 Oxygen Delivery Method Room Air 04/21/25 13:30 04/21/25 14:00 04/21/25 14:30 Temperature Temperature Source Pulse Rate 73 77 71 Pulse Rate [Right] Respiratory Rate Blood Pressure 143/104 H 119/82 125/81 Blood Pressure [Right Arm] Blood Pressure Mean [Right Arm] Blood Pressure Source [Right Arm] Blood Pressure Position [Right Arm] 02 Sat by Pulse Oximetry 99 99 99 Oxygen Delivery Method Room Air Room Air 04/21/25 15:00 04/21/25 15:30 04/21/25 16:00 Temperature Temperature Source Pulse Rate 66 68 64 Pulse Rate [Right] Respiratory Rate Blood Pressure 120/86 118/78 125/79 Blood Pressure [Right Arm] Blood Pressure Mean [Right Arm] Blood Pressure Source [Right Arm] Blood Pressure Position [Right Arm] 02 Sat by Pulse Oximetry 98 100 99 Oxygen Delivery Method Room Air Lab Data Lab Results 04/21/25 13:36: Urine Color Yellow, Urine Appearance Clear, Urine pH 6.0, Ur Specific [place] 1.025, Urine Protein Negative, Urine Glucose (UA) Negative, Urine Ketones Negative, Urine Blood Negative, Urine Nitrate Negative, Urine Bilirubin Negative, Urine Urobilinogen 0.2, Ur Leukocyte Esterase Trace, Urine RBC None, Urine WBC Occasional, Ur Squamous Epith Cells 5-10, Urine Bacteria 1+, Urine HCG, Qual Negative Orders (Tests/Meds): ED MEDICATIONS Discontinued Medications Generic Name Dose Route Start Last Admin Trade Name Berhaneq PRN Reason Stop Dose Admin Acetaminophen 1,000 mg 04/21/25 13:27 04/21/25 13:41 Acetaminophen 500mg Tab PO 04/21/25 13:28 1,000 mg ONCE ONE Administration Lidocaine 1 each 04/21/25 13:27 04/21/25 13:41 Lidocaine 5% Transdermal Patch TD 04/21/25 13:28 1 each ONCE ONE Administration Methocarbamol 500 mg 04/21/25 13:27 04/21/25 13:41 Methocarbamol 500mg Tablet PO 04/21/25 13:28 500 mg ONCE ONE Administration ORDERS Category Date Time Status XR lumbar spine 2-3V Stat Exams 04/21/25 13:31 Completed XR thoracic spine 2V Stat Exams 04/21/25 13:31 Completed Urinalysis and Microscopic Stat Lab 04/21/25 13:36 Completed Urine , HCG Qual. Stat Lab 04/21/25 13:36 Completed Medical Decision Narrative: In summary, patient is a 24-year-old female PMHx PCOS who presents to the ED after a fall that occurred yesterday. Patient states she was playing at the playground with her child when she slipped on the mulch, falling back onto her buttocks, hitting her lower back on a piece of playground equipment in the process. Patient has been ambulatory since then, she states she has taken 1 dose of ibuprofen without any pain relief. She denies any red flag back pain symptoms including fever, bowel or bladder incontinence, saddle anesthesia. This denies any previous back surgery. Upon initial evaluation patient is al ert, oriented and cooperative. She is hemodynamically stable. She has ecchymosis on the right paraspinal muscle and T-spine area. Differential diagnosis include fracture, sprain, muscular injury, among others. L-spine and T-spine imaging obtained. Patient symptomatically managed with Tylenol, Lidoderm and Robaxin. Upon reassessment, patient's pain has improved. X-ray of the L-spine and T-sp ine are unremarkable for any acute fracture. Discussed with patient diagnosis of musculoskeletal injury. We discussed taking acetaminophen and ibuprofen [id number] for symptomatic relief. Advised her I will send Lidoderm patches to the pharmacy. Advised her to follow-up with her PCP within 1 week. We discussed return precautions to the ED and patient verbalized understanding. She was hemodynamically stable and ambulatory upon leaving the ED. Critical Care Critical Care Time Critical Care Time: No
--- OUTSIDE RECORDS SUMMARY | 2025-04-21 13:27 | XMS_ITS | Clinical Summary ---
Author Organization [facility] Address [address] [place] [address] Care Team Providers Care Furniture Cleaner Name Role Phone Mauri Madera MD Primary Care Provider [phone] Allergies Active Allergy Reactions Criticality Noted Date Comments Penicillins Anaphylaxis,Unknown - Low Severity High 08/04/2021 Povidone-Iodine Hives High 08/04/2021 Soap Hives High 08/04/2021 Betadine soaps Medications ondansetron ODT (ZOFRAN-ODT) [address] 1 tablet on the tongue As Needed. 02/26/20 23 Active Vit-Fe Fumarate-FA ( vitamin 27-0.8) 27-0.8 MG tablet tablet Take 1 tablet by mouth Daily. Active aspirin 81 MG EC tablet Take 1 tablet by mouth Daily. Active cetirizine (zyrTEC) 10 MG tabletIndications: Seasonal allergic rhinitis due to pollen Take 1 tablet by mouth Daily. 30 tablet 3 06/22/20 24 Active clotrimazole (LOTRIMIN) 1 % creamIndications:T inea corporis Apply 1 Application topically to the appropriate area as directed 2 (Two) Times a Day. 28 g 1 06/22/20 24 Active metoprolol succinate XL (TOPROL-XL) 50 MG 24 hr tablet Take 1 tablet by mouth Daily. 09/30/19 25 Active Active Problems Problem Noted Date Diagnosed Date Abnormal EKG 10/02/2024 Assessment & Plan (10/02/2024 11:38 AM EST): Reported as possible abnormal EKG at [facility] and seen for piano mover evaluation 09/29/2023. I do not have the actual EKG but just reports showed consideration of possible LVH, but I have repeated EKG today 10/02/2024 which does read a possible criteria for LVH but this is not correct as review reveals she does not meet Osbaldo criteria or Sokolow-Guthrie criteria. Nonetheless with some ongoing palpitation pattern I would still like to refer to EKG as per that cardiology as per that assessment plan. Palpitations 10/02/2024 Assessment & Plan (10/02/2024 11:39 AM EST): Fairly reproducible palpitations multiple times daily lasting minutes, and she was noted to have pulse in the 130s to 140s range of even with metoprolol and decreased to the 110s when evaluated through piano mover on 09/29/2024. As such despite follow-up EKG today 10/02/2024 being reassuring I feel she would benefit from evaluation through cardiology, and she prefers to see Dr. Gallo who also works at [facility] where she has her piano mover. She of note was placed on metoprolol XL 50 mg daily through her piano mover for her tachycardia pattern on 09/29/2024, continue until seeing cardiology Migraine without aura and wi thout status migrainosus, not intractable 06/22/2024 Assessment & Plan (10/02/2024 11:40 AM EST): Patient with pattern of migraine headache without aura, generally flaring more so during , similar to which occurred with her first just over a year ago. No concerning neurologic manifestations. Associated light but not as much sound sensitivity witho sharp bifrontal headache. No concerning warning signs. No concern of pattern cluster headache. No recent change in caffeine intake, though she does have some allergies we will treat for that assessment plan to minimize triggers. With current , would recommend holding on triptans, or other preventative therapy as she is only having once every week or so. As of 10/02/2024 no change in her migrainous headache pattern through , such we will not liner roll changer. Use Tylenol at earliest onset of headache, and if this becomes more problematic, consideration of further treatments through her piano mover. Assessment & Plan (06/22/2024 12:19 PM EST): Patient with pattern of migraine headache without aura, flaring the last 4 months coinciding with , very similar to which occurred with her first just over a year ago. No concerning neurologic manifestations. Associated light but not as much sound sensitivity witho sharp bifrontal headache. No concerning warning signs. No concern of pattern cluster headache. No recent change in caffeine intake, though she does have some allergies we will treat for that assessment plan to minimize triggers. With current , would recommend holding on triptans, or other preventative therapy as she is only having once every week or so. Use Tylenol at earliest onset of headache, and if this becomes more problematic, I would then pursue consideration of further treatments through her piano mover. Encounter for general adult medical examination with abnormal findings 06/02/2024 Assessment & Plan (06/02/2024 12:10 PM EDT): Never full screening blood work, although had some blood work with last year. Obtain fasting CBC, CMP, lipid, TSH, additional vitamin D 25-hydroxy level per some history of fracture as a child. I have held on hemoglobin A1c, HIV, hepatitis C virus screening, urine GC/chlamydia screen as these will be done through her current . Tdap given 05/31/2023. Pap smear reported normal April 2024 through her OB/functional manager, Dr. Bailey. Recommend consider HPV vaccine series. Need for vaccination 06/02/2024 Assessment & Plan (06/02/2024 12:10 PM EDT): Patient declines flu vaccine Seasonal allergic rhinitis due to pollen Assessment & Plan (06/22/2024 12:20 PM EST): Seasonal pattern of congestion drainage and sneezing, with modest flare recently, contributing to headache pattern, recommend initiation of Zyrtec for the next couple weeks, then as needed. This is appropriate in . Hold off on any nasal steroid during but otherwise in the future could add Flonase as needed. Additional benefit of saline spray, nasal flushing. Advise concerns. Assessment & Plan (06/02/2024 12:11 PM EDT): Seasonal pattern of congestion drainage and sneezing, flaring up onto the last few weeks, typically following screen triggers. Cetirizine 10 mg tablet daily provided use as needed, she is currently and does not feel that bothersome at this time but if it came more problematic this is appropriate for use in . Hold off on any nasal steroid during but otherwise in the future could add Flonase as needed. Additional benefit of saline spray, nasal flushing. Advise concerns. Tinea corporis 06/02/2024 Assessment & Plan (06/22/2024 12:20 PM EST): Initially diagnosed 06/02/2024 with a classic appearing patchy rash in the right medial upper arm, 1 with clear central clearance the other is a little more prominent essentially but ovoid shaped, with inflamed edges as is consistent with tinea corporis. Initi partial but not full responsiveness to ate terbinafine 1% cream twice daily for 14 days, switch today on 06/22/2024 over to clotrimazole 1% cream twice daily for 14 days. Advised not fully clearing. Assessment & Plan (06/02/2024 12:12 PM EDT): Sick classic appearing patchy rash in the right medial upper arm, 1 with clear central clearance the other is a little more prominent essentially but ovoid shaped, with inflamed edges as is consistent with tinea corporis. Initiate terbinafine 1% cream twice daily for 14 days, retreat after couple weeks if persistent. Advised if not improving. Vitamin D deficiency 06/02/2024 Assessment & Plan (06/22/2024 12:21 PM EST): Question of some increased frequency of fractures as a child, for which I did check a vitamin D level with blood work 06/02/2024 and was slightly low at 25.8, with other electrolytes such as calcium being normal. Recommend initiation of vitamin D 1000 units daily. Monitor with blood work next year. Assessment & Plan (06/02/2024 11:08 AM EDT): Question of some increased frequency of fractures as a child, doing better recently, I would like to check vitamin D level for consideration of vitamin D deficiency as a contributing factor. Also will check calcium level and other electrolytes with blood work. PCOS (polycystic ovarian syndrome) 06/02/2024 Assessment & Plan (06/02/2024 11:08 AM EDT): Reported diagnosis as managed and monitored through Dr. Bailey, OB/functional manager. Clinically overall stable at this time with no specific medication intervention. 31 weeks gestation of 06/02/2024 Assessment & Plan (10/02/2024 11:37 AM EST): Currently 31 weeks as managed through Dr. Bailey, her OB/functional manager in [facility]. Monitoring regularly, on vitamin and aspirin due to history of hypertension in the later aspects of her initial a year ago. Keep regular follow-up. Assessment & Plan (06/22/2024 12:18 PM EST): Currently 17 weeks as managed through Dr. Bailey, her OB/functional manager in [facility]. Monitoring regularly, on vitamin and aspirin due to history of hypertension in the later aspects of her initial a year ago. Keep regular follow-up. Assessment & Plan (06/02/2024 11:09 AM EDT): Currently 14 weeks as managed through Dr. Bailey, her OB/functional manager in [facility]. Monitoring regularly, on vitamin and aspirin due to history of hypertension in the later aspects of her initial a year ago. Keep regular follow-up. Irritable bowel syndrome with diarrhea Assessment & Plan (06/02/2024 12:11 PM EDT): Patient with classic pattern of irritable bowel syndrome with some periodic cramping, sometimes a bloating sensation which improves with defecation. Bowels are either more normal or sometimes looser. At this time I recommended adding fiber and probiotic daily to her regimen which I find can very commonly improve this pattern, if it became persistent or worsen, we could consider further investigations. Class 1 obesity due to exces s calories without serious comorbidity with body mass index (BMI) of 30.0 to 30.9 in adult 06/02/2024 Assessment & Plan (06/02/2024 12:16 PM EDT): BMI just above 30 but not quite a fair discussion as she is currently 14 weeks but is still only gained a few pounds, such it appears her typical BMI is likely in the upper 20s range. Modest overweight but not significantly so, reinforced importance in the future of healthy diet, exercising post targeting a healthy weight range, although discussed that a specific number is not as important is how she is eating and her activity level. Encounters Date Type Department Care Team Description 02/21/2025 Telephone [facility] [address] [place] [address] [place] [address] Mauri Madera MD CONCERNS from Last 3 Months Immunizations Immunization Administration Dates Next Due DTaP 03/18/2006, 3,01/27/2002,12/22/19 02,2001 DTaP, Unspecified 03/09/2006 Hep A, 2 Dose 03/14/2018 Hep A, Unspecified 01/27/2002,2001, 001 Hep B, Adolescent or Pediatric 01/27/2002,2001,2001 Hep B, Unspecified 2001 HiB 10/06/2002, 2,2001,09/27/19 02 IPV 03/09/2006, 3,01/08/2002,12/22/19 02,2001 MMR 03/09/2006,01/30/2003 Meningococcal Conjugate 10/18/2018 Pneumococcal Conjugate Unspecified 2001 Tdap 05/31/2023,03/14/2018 Varicella 10/06/2002 Family History Medical History Relation Name Comments Diabetes Father Jason Hypertension Father Jason Hypertension Mother Kerri Relation Name Status Comments Father Jason Alive Mother Kerri Alive Social History Tobacco Use Types Packs/Day Years Used Date Smoking Tobacco: Never Smokeless Tobacco: Never Tobacco Cessation:Counseling Given: No Alcohol Use Standard Drinks/Week Comments Never 0 (1 standard drink = 0.6 oz pur e alcohol) PHQ-2 Answer Date Recorded Patient Health Questionnaire-2 Score 0 06/02/2024 Comments Unknown Sex and Gender Information Value Date Recorded Sex Assigned at Female 05/13/2023 10:36 AM EDT Legal Sex Female 10:29 AM EDT Gender Identity Female 05/13/2023 10:36 AM EDT Sexual Orientation Straight 05/13/2023 10 :36 AM EDT Last Filed Vital Signs Vital Sign Reading Time Taken Comments Blood Pressure 110/74 10/02/2024 9:56 AM EST Pulse 100 06/22/2024 10:56 AM EST Temperature 37 C (98.6 F) 10/02/2024 9:29 AM EST Respiratory Rate 20 06/22/2024 10:38 AM EST Oxygen Saturation 98% 06/22/2024 10:38 AM EST Inhaled Oxygen Concentration - - Weight 83 kg (183 lb) 10/02/2024 9:29 AM EST Height 157.5 cm (5' 2 ) 10/02/2024 9:29 AM EST Body Mass Index 33.47 10/02/2024 9:29 AM EST Plan of Treatment Health Maintenance Due Date Last Done Comments Annual Gynecologic Pelvic an d Breast Exam 2001 HPV VACCINES (1 - 3-dose series) 2016 MENINGOCOCCAL B VACCINE (1 o f 2 - Standard) 2017 CHLAMYDIA SCREENING 04/15/2023 HEPATITIS C SCREENING 04/15/2023 COVID-19 Vaccine (2 - 2024-2 6 season) 2025 09/25/2021 INFLUENZA VACCINE 05/09/2025 ANNUAL PHYSICAL 06/02/2025 06/02/2024 PAP SMEAR 04/09/2027 04/09/2024 (Patient-Reported (Performed Externally)) TDAP/TD VACCINES (4 - Td or Tdap) 09/22/2034 09/22/2024, 05/31/2023, 03/14/2018 Pneumococcal Vaccine 0-49 Aged Out 2001 No longer eligible based on patient's age to complete this topic Insurance [facility] Care Teams Furniture Cleaner Relationship Specialty Start Date End Date Mauri Madera MD [address] [place] [address] [place] [phone] PCP - General Internal Medicine 06/02/24
--- OUTSIDE RECORDS SUMMARY | 2025-04-21 13:27 | XMS_ITS | Encounter Summary ---
Author Organization [facility] Address [address] [place] [address] Care Team Providers Care Aircraft Fuselage Framer Name Role Phone Mauri Madera MD Primary Care Provider [phone] Reason for Visit * Reason Onset Date Comments CONCERNS 02/21/2025 Encounter Details Date Type Department Care Team (Late st Contact Info) Description 02/21/2025 Telephone [facility] [address] [place] [address] Mauri Madera MD [address] [place] [id number] CONCERNS Social History Tobacco Use Types Packs/Day Years Used Date Smoking Tobacco: Never Smokeless Tobacco: Never Alcohol Use Standard Drinks/Week Comments Never 0 (1 standard drink = 0.6 oz pur e alcohol) PHQ-2 Answer Date Recorded Patient Health Questionnaire-2 Score 0 06/02/2024 Comments Yes Sex and Gender Information Value Date Recorded Sex Assigned at Female 05/13/2023 10:36 AM EDT Legal Sex Female 10:29 AM EDT Gender Identity Female 05/13/2023 10:36 AM EDT Sexual Orientation Straight 05/13/2023 10 :36 AM EDT documented as of this encounter Miscellaneous Notes * Telephone Encounter - Roxann De Anda MA - 02/22/2025 4:59 PM EDT Called and spoke with pateint and advised her of what Mauri advised. Patient states that it is a little better today, just sore to the touch. Advised patient to give a call tomorrow if not any better.Patient verbalized understanding. * Telephone Encounter - Mauri Madera MD - 02/22/2025 8:01 AM EDT For a clogged milk duct, the generally most effective measure is warm compresses and massage to theregion to help open the duct. Most important is wanting to ensure that this is not becoming secondarily infected with a pattern of mastitis. * Telephone Encounter - Roxann De Anda MA - 02/21/2025 2:28 PM EDT Called and advised patient that Mauri was out of the office and I would call her back in the morning * Telephone Encounter - Bakari Fonseca RegSched Rep - 02/21/2025 2:23 PM EDT Caller: Alicia Hernandez Relationship: Self Best call back number: [phone] What is the best time to reach you: ANYTIME Who are you requesting to speak with (clinical staff, provider, specific staff member): CLINICAL STAFF PATIENT STATES SHE IS EXPERIENCING A CLOGGED MILK DUCT. SHE IS WANTING GUIDANCE ON WHAT TO DO. PLEASE CALL TO DISCUSS. documented in this encounter Plan of Treatment Not on file documented as of this encounter Visit Diagnoses Not on filedocumented in this encounter Care Teams Aircraft Fuselage Framer Relationship Specialty Start Date End Date Mauri Madera MD [address] [place] [address] [place], [place] [id number] PCP - General Internal Medicine 06/02/24 documented as of this encounter
--- NOTE | 2025-04-21 13:31 | XR_ITS ---
PROCEDURE INFORMATION: Exam: XR Thoracic Spine Exam date and time: 04/21/2025 2:09 PM Age: 24 years old Clinical indication: Pain in thoracic spine; Additional info: Fall back on playground equipment TECHNIQUE: Imaging protocol: Radiologic exam of the thoracic spine. Views: 2 views. COMPARISON: MR ABDOMEN WO CON 06/29/2024 11:48 AM FINDINGS: Bones/joints: There is no evidence of acute fracture.There is no evidence of malalignment or dislocation. Soft tissues: Unremarkable. IMPRESSION: There is no evidence of acute fracture.There is no evidence of malalignment or dislocation.
--- NOTE | 2025-04-21 13:31 | XR_ITS ---
PROCEDURE INFORMATION: Exam: XR Lumbosacral Spine Exam date and time: 04/21/2025 2:10 PM Age: 24 years old Clinical indication: Low back pain; Additional info: Hit back on playground equipment during fall TECHNIQUE: Imaging protocol: Radiologic exam of the lumbosacral spine. Views: 2 or 3 views. COMPARISON: MR PELVIS WO CON 06/29/2024 11:48 AM FINDINGS: Bones/joints: There is no evidence of acute fracture.There is no evidence of malalignment or dislocation. Intervertebral disc spaces are maintained. Soft tissues: Unremarkable. IMPRESSION: 1. There is no evidence of acute fracture.There is no evidence of malalignment or dislocation. 2. Intervertebral disc spaces are maintained.
[2025-04-21] MEDS: LIDOCAINE 5% TRANSDERMAL PATCH 1 EACH TD (13:41)
[2025-04-21] MEDS: ACETAMINOPHEN 500MG TAB 1000 MG PO (13:41)
[2025-04-21] MEDS: METHOCARBAMOL 500MG TABLET 500 MG PO (13:41)
[2025-04-21 13:42] LABS: Microscopic, Urine URINE MICROSCOPIC (MICROSCOPIC)
[2025-04-21 13:54] LABS: Bilirubin,Urine Negative (Negative); Color,Urine YELLOW (Yellow); Glucose,Urine (UA) Negative (Negative); Ketones,Urine Negative (Negative); Leukocyte Esterase,Urine TRACE (Negative); PH,Urine 6.0 (5.0-8.5); Protein,Urine Negative (Negative); Specific Gravity, Urine 1.025 (1.005-1.030); Urobilinogen,Urine 0.2 EU/dl (0.2)
[2025-04-21 13:59] LABS: Urine Pregnancy, HCG Qual. Negative (Negative)
[2025-04-21 14:32] LABS: Bacteria,Urine 1+ /lpf; WBC,Urine Occasional #/hpf (0-3)
== END 2025-04-21 16:19 | disposition home or self-care (01) ==
PROVIDERS: Nurse Practitioner; Emergency Provider Student in an Organized Health Care Education/Training Program; PCP Pediatrics
DX: M54.50 Low back pain, unspecified (principal); S20.229A Contusion of unspecified back wall of thorax, initial encounter; W19.XXXA Unspecified fall, initial encounter
CPT/HCPCS: 72070; 72100; 81001; 81025; 99284; 99285

== ENCOUNTER 2025-05-01 12:59 | Outpatient (CLI) | payer OTHER, SELFPAY ==
[2025-05-01 09:05] VITALS: BMI 32.0
--- OUTSIDE RECORDS SUMMARY | 2025-05-01 13:02 | XMS_ITS | Clinical Summary ---
Author Organization [facility] Address [address] [place] [address] Care Team Providers Care Wheel Aligner Name Role Phone Mauri Madera MD Primary Care Provider [phone] Allergies Active Allergy Reactions Criticality Noted Date [...] EST): Reported as possible abnormal EKG at [facility] and seen for neurocritical care physician evaluation 09/29/2023. I do not have the [...] decreased to the 110s when evaluated through neurocritical care physician on 09/29/2024. As such despite follow-up EKG today 10/02/2024 being reassuring I feel she would benefit from evaluation through cardiology, and she prefers to see Dr. Gallo who also works at [facility] where she has her neurocritical care physician. She of note was placed on metoprolol XL 50 mg daily through her neurocritical care physician for her tachycardia pattern on 09/29/2024, continue [...] pattern through , such we will not acid changer. Use Tylenol at earliest onset of headache, and if this becomes more problematic, consideration of further treatments through her neurocritical care physician. Assessment & Plan (06/22/2024 12:19 PM EST): [...] pursue consideration of further treatments through her neurocritical care physician. Encounter for general adult medical examination with [...] smear reported normal April 2024 through her OB/machine turner, Dr. Bailey. Recommend consider HPV vaccine series. [...] as managed and monitored through Dr. Bailey, OB/machine turner. Clinically overall stable at this time with no specific medication intervention. 31 weeks gestation of 06/02/2024 Assessment & Plan (10/02/2024 11:37 AM EST): Currently 31 weeks as managed through Dr. Bailey, her OB/machine turner in [facility]. Monitoring regularly, on vitamin and aspirin due to history of hypertension in the later aspects of her initial a year ago. Keep regular follow-up. Assessment & Plan (06/22/2024 12:18 PM EST): Currently 17 weeks as managed through Dr. Bailey, her OB/machine turner in [facility]. Monitoring regularly, on vitamin and aspirin due to history of hypertension in the later aspects of her initial a year ago. Keep regular follow-up. Assessment & Plan (06/02/2024 11:09 AM EDT): Currently 14 weeks as managed through Dr. Bailey, her OB/machine turner in [facility]. Monitoring regularly, on vitamin and aspirin due [...] Type Department Care Team Description 02/21/2025 Telephone [facility] [address] [place] [address] [place] [address] Mauri Madera MD CONCERNS from Last [...] CHLAMYDIA SCREENING 04/15/2023 HEPATITIS C SCREENING 04/15/2023 INFLUENZA VACCINE 03/09/2025 ANNUAL PHYSICAL 06/02/2025 06/02/2024 PAP SMEAR 04/09/2027 04/09/2024 (Patient-Reported (Performed Externally)) TDAP/TD VACCINES (4 - Td or Tdap) 09/22/2034 09/22/2024, 05/31/2023, 03/14/2018 Pneumococcal Vaccine 0-49 Aged Out 2001 No longer eligible based on patient's age to complete this topic Insurance [facility] Care Teams Wheel Aligner Relationship Specialty Start Date End Date Mauri Madera MD [address] [place] [phone] PCP - General Internal Medicine 06/02/24
[2025-05-01 13:31] LABS: Hematocrit 37.3 % (37.0-47.0); Hemoglobin 12.6 g/dL (12.2-16.2); Immature Granulocytes % 0.1 %; Mean Corpuscular HGB Conc 33.8 g/dL (31.8-35.4); Mean Corpuscular Hemoglobin 27.6 pg (27.0-31.2); Mean Corpuscular Volume 81.8 fl (81-99); Nucleated Red Blood Cells % 0 %; Platelet Count 297 K/mm3 (142-424); Red Blood Count 4.56 M/mm3 (4.20-5.40); Red Cell Distribution Width-SD 41.6 fL; White Blood Count 6.9 K/mm3 (4.8-10.8)
[2025-05-01 13:48] LABS: Albumin Level 4.6 g/dl (3.5-5.0); Chloride 105 mmol/L (98-107)
[2025-05-01 13:49] LABS: Urine Pregnancy, HCG Qual. Negative (Negative)
[2025-05-01 13:49] LABS: Potassium 3.9 mmoL/L (3.5-5.1); Sodium 140 mmol/L (136-145)
[2025-05-01 13:51] LABS: Blood Urea Nitrogen 9 mg/dl (7-17); Creatinine Clearance Estimated 157 mL/min (50-200); Creatinine,Serum 0.70 mg/dl (0.52-1.04); Estimated Glomerular Filt Rate 104 ml/min (>60); GFR (African American) 125 ML/MIN (>60)
[2025-05-01 13:52] LABS: Alanine Aminotransferase 17 U/L (12-78); Albumin/Globulin Ratio 1.9 (1.1-1.8); Alkaline Phosphatase 57 U/L (38-126); Anion Gap 14.9 mEq/L (5-15); Aspartate Amino Transferase 23 U/L (14-36); Bilirubin,Total 0.7 mg/dl (0.2-1.3); Calcium 9.8 mg/dl (8.4-10.2); Carbon Dioxide 24 mmol/L (22.0-30.0); Globulin 2.4 g/dL (1.3-3.2); Glucose 98 mg/dl (74-100); Total Protein,Serum 7.0 g/dl (6.3-8.2)
== END 2025-05-01 23:59 | disposition home or self-care (01) ==
LOC: PREOP 13:00
PROVIDERS: PCP Pediatrics; Visit Provider Surgery
DX: Z01.812 Encounter for preprocedural laboratory examination (principal)
CPT/HCPCS: 80053; 81025; 85025